=== PATIENT | female | born 1970 | race American Indian/Alaskan Native ===

== ENCOUNTER 2016-08-24 14:05 | Inpatient (IN) | payer OTHER ==
[2016-08-24] MEDS ORDERED: NACL 0.9% 1000 ML 1,000 ML IV ONE ×3 (14:31→17:54)
[2016-08-24] MEDS ORDERED: ZOFRAN IV ONE (14:32)
[2016-08-24 15:37] LABS: Hematocrit 36.6 % (30.3-42.9); Hemoglobin 11.9 gm/dl (10.1-14.3); Mean Corpuscular HGB Conc 33 % (30-34); Mean Corpuscular Hemoglobin 29 pg (28-32); Mean Corpuscular Volume 89 fl (79-97); Red Blood Count 4.11 M/mm3 (3.65-5.03)
--- NOTE | 2016-08-24 15:38 | Emergency Department Report ---
ED N/V/D HPI - General Chief complaint: Hyperglycemia Stated complaint: NAUSEA/VOMITING/DIARRHEA Time Seen by Provider: 08/24/16 14:30 Source: patient, EMS Mode of arrival: Stretcher Limitations: No Limitations - History of Present Illness Initial comments: 46 yo female with a past medical history of insulin dependent diabetes, autoimmune hepatitis, liver cirrhosis, and hypertension presents to the hospital complains of nausea, vomiting, and diarrhea for 2 days. Patient then noncompliant with her insulin for at least 10 days. Accu-Chek high in route to the hospital via EMS. Patient's been unable to tolerate any food intake for the last 3 days. Patient denies hematemesis, hematochezia, melena, fever, dysuria, or pain. Overall fatigue, increased thirst, and increased frequency of urination reported. Patient complains of bilateral leg teofilo at the level of the knees n.. PMD: None - Related Data Previous Rx's Medication Instructions Recorded Last Taken Type Nitrofurantoin [place]/M-Cryst 100 mg PO Q12HR #14 capsule 07/25/16 Unknown Rx [Macrobid CAP] Allergies Allergy/AdvReac Type Severity Reaction Status Date / Time No Known Allergies Allergy Verified 07/25/16 12:59 ED Review of Systems ROS: Stated complaint: NAUSEA/VOMITING/DIARRHEA Other details as noted in HPI Comment: All other systems reviewed and negative Other: Constitutional: No fevers chills Eyes: Chronically impaired vision ENT: No ear pain or throat pain Neck: Denies pain Respiratory: Denies cough wheezing shortness of breath Cardiovascular: Denies chest pain, palpitations, syncope GI: As per HPI : Denies dysuria Musculoskeletal: Denies back pain, joint swelling Skin: Denies rash, lesions, erythema Neurologic: Denies headache, numbness, weakness Psychiatric: Denies suicidal ideation, hallucinations ED Past Medical Hx - Past Medical History Hx Hypertension: Yes Hx Diabetes: Yes Hx Liver Disease: Yes (cirrhosis, autoimmune hepatitis) Additional medical history: Anemia. 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 liver bx - Social History Smoking Status: Never Smoker Substance Use Type: None - Medications Home Medications: Home Medications Medication Instructions Recorded Confirmed Last Taken Type Nitrofurantoin [place]/M-Cryst 100 mg PO Q12HR #14 capsule 07/25/16 Unknown Rx [Macrobid CAP] ED Physical Exam - General Limitations: No Limitations - Other Other exam information: General: No limitations, patient is alert in no acute distress Head exam: Atraumatic, normocephalic Eyes exam: Normal appearance ENT: Dry mucous membranes Neck exam: Normal inspection, full range of motion, no meningismus nontender Respiratory exam: Clear to auscultation bilateral, no wheezes, rales, crackles Cardiovascular: Mild tachycardia regular rhythm, systolic murmur Abdomen: Soft, nondistended, and nontender, with normal bowel sounds, no rebound, or guarding Extremity: Full range of motion normal inspection no deformity Back: Normal Inspection, full range of motion, no tenderness Neurologic: Alert, oriented x3, cranial nerves intact, no motor or sensory deficit Psychiatric: normal affect, normal mood Skin: Warm, dry, intact ED Course Vital Signs 08/24/16 08/24/16 08/24/16 14:31 16:18 18:54 Temperature 97.8 F 99.6 F Pulse Rate 112 H 115 H Respiratory 20 18 20 Rate Blood Pressure 127/51 Blood Pressure 140/87 128/50 [Left] O2 Sat by Pulse 99 96 Oximetry - Reevaluation(s) Reevaluation #1: 08/24/16 15:39 Patient treated with insulin, Zofran, and normal saline ED Medical Decision Making - Lab Data Result diagrams: 08/24/16 14:55 08/24/16 16:38 Lab Results 08/24/16 08/24/16 08/24/16 Range/Units 14:55 14:55 14:55 WBC 20.2 H (4.5-11.0) K/mm3 RBC 4.11 (3.65-5.03) M/mm3 Hgb 11.9 (10.1-14.3) gm/dl Hct 36.6 (30.3-42.9) % MCV 89 (79-97) fl MCH 29 (28-32) pg MCHC 33 (30-34) % RDW 19.0 H (13.2-15.2) % VBG pH (7.320-7.420) Sodium 125 L (137-145) mmol/L Potassium 5.2 H (3.6-5.0) mmol/L Chloride 85.5 L (98-107) mmol/L Carbon Dioxide 14 L (22-30) mmol/L Anion Gap 31 mmol/L BUN 50 H (7-17) mg/dL Creatinine 1.6 H (0.7-1.2) mg/dL Estimated GFR 42 ml/min BUN/Creatinine Ratio 31.25 % Glucose 594 H* (65-100) mg/dL POC Glucose (70-105) Calcium 8.3 L (8.4-10.2) mg/dL Total Bilirubin 2.7 H (0.1-1.2) mg/dL AST 57 H (5-40) units/L ALT 35 (7-56) units/L Alkaline Phosphatase 171 H (35-129) units/L Total Protein 7.4 (6.3-8.2) g/dL Albumin 2.2 L (3.9-5) g/dL Albumin/Globulin Ratio 0.4 % Lipase 148 H (13-60) units/L HCG, Qual Negative (Negative) Ketones 29.2 H (0.2-2.8) mg/dL 08/24/16 08/24/16 08/24/16 Range/Units 14:55 16:38 16:47 WBC (4.5-11.0) K/mm3 RBC (3.65-5.03) M/mm3 Hgb (10.1-14.3) gm/dl Hct (30.3-42.9) % MCV (79-97) fl MCH (28-32) pg MCHC (30-34) % RDW (13.2-15.2) % VBG pH 7.329 (7.320-7.420) Sodium 124 L (137-145) mmol/L Potassium 4.9 (3.6-5.0) mmol/L Chloride 87.9 L (98-107) mmol/L Carbon Dioxide 15 L (22-30) mmol/L Anion Gap 26 mmol/L BUN 49 H (7-17) mg/dL Creatinine 1.4 H (0.7-1.2) mg/dL Estimated GFR 49 ml/min BUN/Creatinine Ratio 35.00 % Glucose 556 H* (65-100) mg/dL POC Glucose > 500 H (70-105) Calcium 8.3 L (8.4-10.2) mg/dL Total Bilirubin (0.1-1.2) mg/dL AST (5-40) units/L ALT (7-56) units/L Alkaline Phosphatase (35-129) units/L Total Protein (6.3-8.2) g/dL Albumin (3.9-5) g/dL Albumin/Globulin Ratio % Lipase (13-60) units/L HCG, Qual (Negative) Ketones (0.2-2.8) mg/dL 08/24/16 Range/Units 18:21 WBC (4.5-11.0) K/mm3 RBC (3.65-5.03) M/mm3 Hgb (10.1-14.3) gm/dl Hct (30.3-42.9) % MCV (79-97) fl MCH (28-32) pg MCHC (30-34) % RDW (13.2-15.2) % VBG pH (7.320-7.420) Sodium (137-145) mmol/L Potassium (3.6-5.0) mmol/L Chloride (98-107) mmol/L Carbon Dioxide (22-30) mmol/L Anion Gap mmol/L BUN (7-17) mg/dL Creatinine (0.7-1.2) mg/dL Estimated GFR ml/min BUN/Creatinine Ratio % Glucose (65-100) mg/dL POC Glucose > 500 H (70-105) Calcium (8.4-10.2) mg/dL Total Bilirubin (0.1-1.2) mg/dL AST (5-40) units/L ALT (7-56) units/L Alkaline Phosphatase (35-129) units/L Total Protein (6.3-8.2) g/dL Albumin (3.9-5) g/dL Albumin/Globulin Ratio % Lipase (13-60) units/L HCG, Qual (Negative) Ketones (0.2-2.8) mg/dL - Radiology Data Radiology results: report reviewed, image reviewed (cxr: naf) CT abdomen and pelvis noncontrast: Findings consistent with cirrhosis portal hypertension. Multiple varices present. Splenomegaly. Diffuse body wall edema. Uterine fibroids. - Medical Decision Making Patient receive IV fluids and treated with DKA protocol. Cultures pending in no acute infection identified at this time. awaiting urine collection - Differential Diagnosis DKA, hyperglycemia, gastroenteritis, gastroparesis Critical Care Time: No Critical care attestation.: If time is entered above; I have spent that time in minutes in the direct care of this critically ill patient, excluding procedure time. ED Disposition Clinical Impression: DKA (diabetic ketoacidoses), Nausea vomiting and diarrhea, Renal insufficiency , Leukocytosis, Hyperkalemia, Liver cirrhosis Disposition: OP ADMITTED IP TO THIS HOSP Is pt being admited?: Yes Condition: Stable Time of Disposition: 19:04 (Dr Patterson/hosp)
[2016-08-24 15:43] LABS: White Blood Count 20.2 K/mm3 (4.5-11.0)
[2016-08-24 15:44] LABS: Albumin 2.2 g/dL (3.9-5); Albumin/Globulin Ratio 0.4 %; B-Hydroxybutyrate 29.2 mg/dL (0.2-2.8); BUN/Creatinine Ratio 31.25; Bilirubin,Total 2.7 mg/dL (0.1-1.2); Calcium 8.3 mg/dL (8.4-10.2); Chloride 85.5 mmol/L (98-107); Potassium 5.2 mmol/L (3.6-5.0); Total Protein 7.4 g/dL (6.3-8.2)
[2016-08-24] MEDS ORDERED: D50W (25GM) IV PRN (15:57)
--- NOTE | 2016-08-24 16:40 | Admit Criteria Form ---
Admission Criteria Documentation: DIABETES Clinical Indications for Admission to Inpatient Care (Place 'X' for any and all applicable criteria): Admission is indicated by presence of ALL (if I & II) or ANY ONE (if III or IV) of the following (1)(2)(3)(4): [X ]I. Diabetes is uncontrolled as indicated by ANY ONE of the following: [ X]a) Diabetic ketoacidosis as indicated by ALL of the following (8): [X ]i) Hyperglycemia (eg, plasma glucose greater than 200 mg /dL (11.1 mmol/L)) [ X]ii) Acidosis (eg, arterial pH less than 7.30, serum bicarbonate level less than 15 mEq/L (mmol/L)) [ X]iii) Moderate ketonuria or ketonemia [ ]b) Hyperglycemic hyperosmolar state as indicated by ALL of the following(9)(10): [ ]i) Neurologic dysfunction (eg, stupor, coma, hemiparesis , seizure)(13) [ ]ii) Plasma glucose greater than 600 mg/dL (33.3 mmol/L) [ ]iii) Serum osmolality greater than 320 mOsm/kg (mmol/kg) [ ]c) Severe signs or symptoms secondary to hyperglycemia indicated by ANY ONE of the following: [ ]i) Altered mental status(10) [ ]ii) Significant hypovolemia or dehydration [ ]iii) Intractable nausea or vomiting [ ]iv) Unexplained fever or severe infection [ ]v) Severe electrolyte abnormality (eg, hypokalemia, hyperkalemia, hypernatremia) [X ]II. Management at other levels of care (Also use Diabetes: Observation Care as appropriate) is not feasible because of ANY ONE of the following: [X ]a) Condition was not adequately corrected with treatment at other levels of care. [ ]b) Treatment at other levels of care is not appropriate because of condition severity (eg, hyperosmolar coma). [ ]III. Contraindications and/or Inappropriate clinical situations for Observational Care in patients with Diabetes, when ANY ONE of the following is required: [ ]a) Patient require specific diagnostic workup or therapeutic intervention 22 [ ]b) Patient with abnormal vital signs or altered mental status 23 [ ]IV. General contraindications and/or Inappropriate clinical situations for Observational Care in patients with Diabetes, when ANY ONE of the following is required: [ ]a) Prediction of prolongation of LOS based on ANY ONE of the following may be considered as a contraindication for observational care 2, 3, 4, 5, 6, 7, 8, 9, 10, 11 [ ]i) Age > 65 yrs. [ ]ii) Patient arriving by ambulance [ ]iii) Patient with high acuity [ ]iv) Patient requiring vital sign monitoring [ ]v) Patient on IV medication [ ]b) Systolic blood pressures 180mmHg 3,12 [ ]c) Patient with altered mental status including delirium and other alteration of consciousness, (3) [ ]d) Patient whose discharge disposition will be to a fpc home or rehabilitation home should not be managed in Emergency Department Observation Unit. CMS rule requires 3 days hospital stay before such placement.3,13 [ ]e) Patient with failure to thrive due to broad array of etiologies 3,16,17 [ ]f) Inability to ambulate 3,14 Extended stay beyond goal length of stay may be needed for(3)(20): [ ]a) Treatment of precipitating causes [ ]b) Development of hypoglycemia [ ]c) Complications of treatment [ ]d) Complications of decompensated diabetes (eg, acute gastric dilatation, persistent metabolic or neurologic derangement) [ ]e) Active Comorbidities [ ]f) Older patients( 65 years or older) The original [employer] content created by [employer] has been revised. The portions of the content which have been revised are identified through the use of italic text or in bold,and [facility] has neither reviewed nor approved the modified material. All other unmodified content is copyright [employer] Please see references footnoted in the original [facility] edition 2016 Admission Criteria Met: Yes
[2016-08-24] MEDS ORDERED: NovoLIN R 100 UNITS in NACL 0.9% 99 ML IV SCH (17:00)
[2016-08-24 17:25] LABS: Calcium 8.3 mg/dL (8.4-10.2); Chloride 87.9 mmol/L (98-107); Potassium 4.9 mmol/L (3.6-5.0)
--- NOTE | 2016-08-24 18:52 | Cat Scan Report ---
FINAL REPORT EXAM: CT ABDOMEN PELVIS WO CON HISTORY: leukocytosis, n,v,d TECHNIQUE: CT of the abdomen and pelvis without contrast PRIORS: None. FINDINGS: There is diffuse body wall edema present. Evaluation is somewhat limited due to lack of intravenous contrast Liver has a nodular contour and appears mildly enlarged. There is recanalization of the umbilical vein with multiple anterior abdominal wall varices The spleen is enlarged measuring approximately 14.0 by 13.2 by 6.5 centimeters. Small amount of ascites noted in the mid abdomen. Kidneys demonstrate no evidence for hydronephrosis. There is suspicion of splint renal varices however evaluation is limited due to lack contrast. No significant colonic or small bowel distention There is a calcified fibroid within posterior lower pelvis. There is also lobular mass identified adjacent to the uterus probable pedunculated fibroid could be further evaluated with ultrasound. Urinary bladder is unremarkable IMPRESSION: Findings are consistent with cirrhosis portal hypertension. Multiple varices present. Splenomegaly Diffuse body wall edema. Probable pedunculated uterine fibroid. Could be further evaluated ultrasound. A calcified pedunculated fibroid is also noted. Somewhat limited exam due to lack intravenous contrast
[2016-08-24 19:17] LABS: Blastocytes % (Manual) 0 %
[2016-08-24 19:18] LABS: Anisocytosis 1+; Basophils % (Manual) 0 % (0.0-1.8); Diff Status Complete; Eosinophils % (Manual) 0 % (0.0-4.3); Platelet Estimate Appears Decreased; Poikilocytosis 1+
[2016-08-24 19:20] LABS: Platelet Count 93 K/mm3 (140-440)
[2016-08-24 19:21] LABS: BUN/Creatinine Ratio 35.71; Chloride 91.1 mmol/L (98-107); Potassium 4.6 mmol/L (3.6-5.0)
[2016-08-24 20:39] LABS: BUN/Creatinine Ratio 33.33; Calcium 7.6 mg/dL (8.4-10.2); Chloride 93.5 mmol/L (98-107); Potassium 4.3 mmol/L (3.6-5.0)
[2016-08-25] MEDS ORDERED: NACL 0.9% 1000 ML 1,000 ML ONE (00:08)
[2016-08-25 00:14] LABS: BUN/Creatinine Ratio 33.33; Calcium 8.2 mg/dL (8.4-10.2); Chloride 94.2 mmol/L (98-107); Potassium 4.6 mmol/L (3.6-5.0)
--- NOTE | 2016-08-25 00:20 | Event Note ---
Date: 08/24/16 See H/p in reports DKA
[2016-08-25] MEDS ORDERED: D50W (25GM) IV PRN (00:21)
[2016-08-25] MEDS ORDERED: D5W/0.45% NACL/KCL 20 MEQ 1,000 ML IV SCH (01:00)
[2016-08-25] MEDS ORDERED: NovoLIN R 100 UNITS in NACL 0.9% 99 ML IV SCH (01:00)
[2016-08-25 01:19] LABS: BUN/Creatinine Ratio 31.25; Calcium 8.4 mg/dL (8.4-10.2); Magnesium 2.2 mg/dL (1.7-2.3); Phosphorous 1.6 mg/dL (2.5-4.5)
[2016-08-25 01:20] LABS: Chloride 92.6 mmol/L (98-107); Potassium 4.7 mmol/L (3.6-5.0)
--- NOTE | 2016-08-25 01:59 | History and Physical Report ---
CHIEF COMPLAINT: Nausea, vomiting, and diarrhea for two days. HISTORY OF PRESENT ILLNESS: A 46-year-old female with a past medical history of autoimmune hepatitis, insulin-dependent diabetes, liver cirrhosis and hypertension, presents with nausea, vomiting, and diarrhea for two days. Noncompliant with her insulin for the last 10 days. No dysuria, no flank pain. Unable to tolerate any food intake for the past 3 days. PAST MEDICAL HISTORY: Significant for, 1. Hypertension. 2. Diabetes. 3. Cirrhosis. 4. Autoimmune hepatitis. 5. Anemia. 6. Blind in the left eye. The patient impaired in the right eye. PAST SURGICAL HISTORY: Benign tumors removed from bilateral breasts. Liver biopsy. SOCIAL HISTORY: Does not smoke. No alcohol, no recreational drugs. FAMILY HISTORY: Significant for hypertension. REVIEW OF SYSTEMS: CONSTITUTIONAL: No weight gain, no weight loss. Fatigue and weakness present. Poor appetite present. HEENT: No blurred vision, no sore throat, no postnasal drip. CARDIOVASCULAR: No chest pain, no palpitations, no shortness of breath, no paroxysmal nocturnal dyspnea. RESPIRATORY: No wheezing. No shortness of breath or cough. GASTROINTESTINAL: No abdominal pain, but nausea, vomiting, diarrhea present. Vomiting about 3-4 times a day, loose stools 2 to 3 times a day. Not foul smelling. GENITOURINARY: No dysuria, no flank pain. MUSCULOSKELETAL: No neck stiffness, muscle weakness, or muscle cramps. INTEGUMENTARY: No rash, no pruritus, no jaundice. CENTRAL NERVOUS SYSTEM: No syncope, no seizures, no focal deficits. PSYCHIATRIC: Slightly depressed. ENDOCRINE: Polyphagia present. Unable to eat for the last few days because of the nausea. HEMATOLOGIC AND LYMPHATIC: No easy bruising or easy bleeding. ALLERGIC AND IMMUNOLOGIC: No urticaria. A 14-point review of systems was done. PHYSICAL EXAMINATION: GENERAL: Middle-aged female, cooperative during examination. VITAL SIGNS: Temperature is 97.8, pulse is 112, respirations are 20, blood pressure 127/51. HEENT: Unremarkable. Pupils equal and reactive. NECK: Supple, no lymphadenopathy, no thyromegaly. LUNGS: Clear to auscultation and percussion. Good air entry. CARDIOVASCULAR: S1, S2 heard. No gallop, no murmur, no rub. Apical impulse in left fifth intercostal space and midclavicular line. ABDOMEN: Soft and benign. No hepatosplenomegaly. No guarding, no rigidity. Hernial orifices are normal. EXTREMITIES: Good pedal pulses. No pedal edema. CENTRAL NERVOUS SYSTEM: Alert and oriented x 4, nonfocal exam. LABORATORY DATA: White count is 20,200, hemoglobin is 11.9, hematocrit is 36.6, platelet count of 93,000. Glucose is 594, potassium is 5.2. Sodium is 125 and BUN and creatinine is 15 and 1.6, albumin is 2.2, ketones is 29.2. EKG shows sinus tachycardia. A CT abdomen shows findings consistent with cirrhosis and portal hypertension, multiple viruses present. ASSESSMENT AND PLAN: 1. Diabetic ketoacidosis. IV fluids for the time being and diabetic ketoacidosis protocol. Also, long acting insulin initiated at night time. Patient can be discharged on long-acting insulin qhs and short-acting insulin before each meal. 2. Hypertension. Blood pressure under control. We will add antihypertensives if necessary. 3. Hyponatremia secondary to high glucose level. Should be corrected with correction of glucose. 4. Hyperkalemia -mild , should correct with IV insulin. 5. Leukocytosis. Rocephin empirically. No source of infection found. Check UA. Check urine for infection. We will go with Rocephin for the time being. 6. Autoimmune hepatitis, stable. LFTs are slightly high. AST is 57. Total bilirubin is 2.7. We will consult GI if necessary. At this point, I think it is at baseline and we will not do anything for about it. 7. Deep venous thrombosis prophylaxis, Lovenox 30 mg subcutaneous daily. 8. Prerenal azotemia. IV fluids for the time being. JOB# [id number] YEHUDA/LUDMILA SLIVERIO
[2016-08-25 02:37] LABS: Bacteria,Urine 4+ /HPF (Negative); Bilirubin,Urine NEG (Negative); Blood,Urine SM (Negative); Ketones,Urine NEG (Negative); Leukocyte Esterase,Urine SM (Negative); Mucus,Urine FEW /HPF; Nitrite,Urine NEG (Negative); RBC,Urine < 1.0 /HPF (0.0-6.0); Urobilinogen,Urine < 2.0 mg/dL (<2.0)
[2016-08-25 06:42] LABS: BUN/Creatinine Ratio 32.14; Calcium 7.8 mg/dL (8.4-10.2); Chloride 99.2 mmol/L (98-107); Potassium 3.9 mmol/L (3.6-5.0)
--- NOTE | 2016-08-25 07:58 | XRay Report ---
PORTABLE CHEST: An AP portable view of the chest demonstrates a normal cardiac contour considering the limits of this technique. The lungs are clear with no evidence of infiltrate, fluid or failure. IMPRESSION: Normal portable chest.
[2016-08-25 08:10] LABS: BUN/Creatinine Ratio 30.66; Calcium 7.7 mg/dL (8.4-10.2); Chloride 100.6 mmol/L (98-107)
[2016-08-25] MEDS ORDERED: TYLENOL PO PRN (09:23)
[2016-08-25] MEDS: ROCEPHIN/NS 2 GM/100 ML 100 ML IV SCH (10:25)
[2016-08-25] MEDS: LOVENOX SUB-Q SCH (10:48)
[2016-08-25 10:51] LABS: BUN/Creatinine Ratio 32.14; Calcium 7.7 mg/dL (8.4-10.2); Chloride 101.4 mmol/L (98-107)
--- NOTE | 2016-08-25 12:38 | Consultation ---
History of Present Illness Consult date: 08/25/16 Requesting physician: LEANNA REEVES Reason for consult: other (DKA) History of present illness: PULMONARY CONSULT NOTE (Full dictation # [id number]) Please see dictated notes for full details Medications and Allergies Allergies Allergy/AdvReac Type Severity Reaction Status Date / Time No Known Allergies Allergy Verified 07/25/16 12:59 Home Medications Medication Instructions Recorded Confirmed Last Taken Type Nitrofurantoin [place]/M-Cryst 100 mg PO Q12HR #14 capsule 07/25/16 Unknown Rx [Macrobid CAP] Active Meds: Active Medications Acetaminophen (Tylenol) 650 mg PO Q4H PRN PRN Reason: Pain, Mild (1-3) Last Admin: 08/25/16 10:29 Dose: 650 mg Dextrose (D50w (25gm)) 0 ml IV PRN PRN PRN Reason: Hypoglycemia Enoxaparin Sodium (Lovenox) 40 mg SUB-Q QDAY DEONNA Last Admin: 08/25/16 10:48 Dose: 40 mg Insulin Human Regular 100 (units/ Sodium Chloride) 100 mls @ 1 mls/hr IV TITR DEONNA; 1 UNITS/HR PRN Reason: Protocol Last Titration: 08/25/16 11:39 Dose: 5 units/hr Potassium Chloride/Dextrose/Sod Cl (D5w/0.45% Nacl/Kcl 20 Meq) 1,000 mls @ 125 mls/hr IV DIRECT DEONNA Last Admin: 08/25/16 06:05 Dose: 125 mls/hr Ceftriaxone Sodium (Rocephin/Ns 2 Gm/100 Ml) 100 mls @ 200 mls/hr IV Q24HR DEONNA Last Admin: 08/25/16 10:25 Dose: 200 mls/hr Insulin Detemir (Levemir) 10 units SUB-Q QHS DEONNA Physical Examination Vital signs: Vital Signs Temp Pulse Resp BP Pulse Ox 97.8 F 112 H 20 127/51 99 08/24/16 14:31 08/24/16 14:31 08/24/16 14:31 08/24/16 14:31 08/24/16 14:31 Results - Laboratory Findings CBC and BMP: 08/26/16 09:48 08/26/16 09:48 Abnormal lab findings: Abnormal Labs 08/24/16 08/24/16 08/24/16 20:00 23:24 23:38 Sodium 126 L 128 L Chloride 93.5 L 94.2 L Carbon Dioxide 18 L 18 L BUN 50 H 50 H Creatinine 1.5 H 1.5 H Glucose 464 H 361 H POC Glucose 337 H Hemoglobin A1c Calcium 7.6 L 8.2 L Phosphorus Urine WBC (Auto) 08/25/16 08/25/16 08/25/16 00:36 00:36 00:36 Sodium 127 L Chloride 92.6 L Carbon Dioxide 20 L BUN 50 H Creatinine 1.6 H Glucose 338 H POC Glucose Hemoglobin A1c 13.3 H Calcium Phosphorus 1.6 L Urine WBC (Auto) 08/25/16 08/25/16 08/25/16 00:54 01:50 02:17 Sodium Chloride Carbon Dioxide BUN Creatinine Glucose POC Glucose 313 H 275 H Hemoglobin A1c Calcium Phosphorus Urine WBC (Auto) 23.0 H 08/25/16 08/25/16 08/25/16 03:00 03:49 04:49 Sodium Chloride Carbon Dioxide BUN Creatinine Glucose POC Glucose 271 H 267 H 259 H Hemoglobin A1c Calcium Phosphorus Urine WBC (Auto) 08/25/16 08/25/16 08/25/16 05:47 06:10 06:59 Sodium 131 L Chloride Carbon Dioxide 19 L BUN 45 H Creatinine 1.4 H Glucose 227 H POC Glucose 229 H 249 H Hemoglobin A1c Calcium 7.8 L Phosphorus Urine WBC (Auto) 08/25/16 08/25/16 08/25/16 07:34 08:10 09:06 Sodium 133 L Chloride Carbon Dioxide 19 L BUN 46 H Creatinine 1.5 H Glucose 249 H POC Glucose 241 H 275 H Hemoglobin A1c Calcium 7.7 L Phosphorus Urine WBC (Auto) 08/25/16 08/25/16 10:23 10:30 Sodium 134 L Chloride Carbon Dioxide 21 L BUN 45 H Creatinine 1.4 H Glucose 252 H POC Glucose 238 H Hemoglobin A1c Calcium 7.7 L Phosphorus Urine WBC (Auto)
--- NOTE | 2016-08-25 13:38 | Progress Note ---
Assessment and Plan Assessment and plan: --Diabetic ketoacidosis On insulin drip and IV fluids, blood sugars reasonable control And then Closed, acidosis improved Start diabetic diet, initiate long-acting insulin 7030 DC insulin drip, Accu-Chek sliding scale coverage and ADA diet Check hemoglobin A1c, IV hydration change fluids to normal saline And supportive care --Febrile illness/leukocytosis Rule out sepsis, blood and urine cultures emperic antibiotics --Type 1 diabetes mellitus Uncontrolled secondary to noncompliance Diabetic education possible home health nurse for disease monitoring and education Prior to discharge --Pseudohyponatremia secondary to severe hypoglycemia Sodium levels slowly improving Closely monitor --Acute renal failure secondary to vasomotor nephropathy And dehydration, trending down IV fluids, oral fluids, closely monitor renal function and avoid nephrotoxic medications Constant nephrology evaluation if no improvement --Transaminitis/cirrhosis liver Closely monitor, may need to follow GI as outpatient For further evaluation and management --DVT prophylaxis with Lovenox DC planning with case management If patient tolerates diet and sugars are reasonable control Patient can be admitted to telemetry plan of care discussed with the patient her nurse Critical care time 31 minutes The high probability of a clinically significant, sudden or life threatening deterioration of the [endocrine, nephrology, gastrointestinal and infectious disease] system(s) required my full and direct attention, intervention and personal management. The aggregate critical care time was [31] minutes. This time is in addition to time spent performing reported procedures but includes the following: [x] Data Review and interpretation [x] Patient assessment and monitoring of vital signs [x] Documentation [x] Medication orders and management History Interval history: Patient seen and evaluated in ER from this morning medical records reviewed Admitted with diabetic ketoacidosis on insulin drip, patient blood sugars are reasonable Amnion gap closed, no acidosis Patient is alert awake oriented 3, dehydrated complaints of generalized weakness No nausea vomiting Vital signs reviewed stable Hospitalist Physical - Constitutional Vitals: Temp Pulse Resp BP Pulse Ox 101.3 F H 93 H 18 106/56 99 08/25/16 09:22 08/25/16 13:00 08/25/16 13:10 08/25/16 13:00 08/25/16 13:10 General appearance: Present: mild distress, well-nourished, obese, other ( dehydrated) - EENT Eyes: Present: PERRL, EOM intact - Neck Neck: Present: supple, normal ROM - Respiratory Respiratory effort: normal Respiratory: bilateral: diminished, negative: rales, rhonchi, wheezing - Cardiovascular Rhythm: regular Heart Sounds: Present: S1 & S2 - Extremities Extremities: no ischemia, pulses intact, pulses symmetrical Peripheral Pulses: within normal limits - Abdominal General gastrointestinal: soft, non-tender, non-distended, normal bowel sounds - Integumentary Integumentary: Present: clear, warm - Psychiatric Psychiatric: appropriate mood/affect, cooperative - Neurologic Neurologic: CNII-XII intact, moves all extremities Results - Labs CBC & Chem 7: 08/26/16 09:48 08/26/16 09:48 Labs: Laboratory Last Values WBC 20.2 K/mm3 (4.5-11.0) H 08/24/16 14:55 RBC 4.11 M/mm3 (3.65-5.03) 08/24/16 14:55 Hgb 11.9 gm/dl (10.1-14.3) 08/24/16 14:55 Hct 36.6 % (30.3-42.9) 08/24/16 14:55 MCV 89 fl (79-97) 08/24/16 14:55 MCH 29 pg (28-32) 08/24/16 14:55 MCHC 33 % (30-34) 08/24/16 14:55 RDW 19.0 % (13.2-15.2) H 08/24/16 14:55 Plt Count 93 K/mm3 (140-440) L 08/24/16 14:55 Add Manual Diff Complete 08/24/16 14:55 Total Counted 100 08/24/16 14:55 Seg Neuts % (Manual) 88.0 % (40.0-70.0) H 08/24/16 14:55 Band Neutrophils % 4.0 % 08/24/16 14:55 Lymphocytes % (Manual) 3.0 % (13.4-35.0) L 08/24/16 14:55 Reactive Lymphs % (Man) 0 % 08/24/16 14:55 Monocytes % (Manual) 3.0 % (0.0-7.3) 08/24/16 14:55 Eosinophils % (Manual) 0 % (0.0-4.3) 08/24/16 14:55 Basophils % (Manual) 0 % (0.0-1.8) 08/24/16 14:55 Metamyelocytes % 1.0 % 08/24/16 14:55 Myelocytes % 1.0 % 08/24/16 14:55 Promyelocytes % 0 % 08/24/16 14:55 Blast Cells % 0 % 08/24/16 14:55 Nucleated RBC % Not Reportable 08/24/16 14:55 Seg Neutrophils # Man 17.8 K/mm3 (1.8-7.7) H 08/24/16 14:55 Band Neutrophils # 0.8 K/mm3 08/24/16 14:55 Lymphocytes # (Manual) 0.6 K/mm3 (1.2-5.4) L 08/24/16 14:55 Abs React Lymphs (Man) 0.0 K/mm3 08/24/16 14:55 Monocytes # (Manual) 0.6 K/mm3 (0.0-0.8) 08/24/16 14:55 Eosinophils # (Manual) 0.0 K/mm3 (0.0-0.4) 08/24/16 14:55 Basophils # (Manual) 0.0 K/mm3 (0.0-0.1) 08/24/16 14:55 Metamyelocytes # 0.2 K/mm3 08/24/16 14:55 Myelocytes # 0.2 K/mm3 08/24/16 14:55 Promyelocytes # 0.0 K/mm3 08/24/16 14:55 Blast Cells # 0.0 K/mm3 08/24/16 14:55 WBC Morphology Not Reportable 08/24/16 14:55 Hypersegmented Neuts Not Reportable 08/24/16 14:55 Hyposegmented Neuts Not Reportable 08/24/16 14:55 Hypogranular Neuts Not Reportable 08/24/16 14:55 Smudge Cells Not Reportable 08/24/16 14:55 Toxic Granulation Not Reportable 08/24/16 14:55 Toxic Vacuolation Not Reportable 08/24/16 14:55 Dohle Bodies Not Reportable 08/24/16 14:55 Pelger-Huet Anomaly Not Reportable 08/24/16 14:55 Chary Rods Not Reportable 08/24/16 14:55 Platelet Estimate Appears decreased 08/24/16 14:55 Clumped Platelets Not Reportable 08/24/16 14:55 Plt Clumps, EDTA Not Reportable 08/24/16 14:55 Large Platelets Not Reportable 08/24/16 14:55 Giant Platelets Not Reportable 08/24/16 14:55 Platelet Satelliting Not Reportable 08/24/16 14:55 Plt Morphology Comment Not Reportable 08/24/16 14:55 RBC Morphology Not Reportable 08/24/16 14:55 Dimorphic RBCs Not Reportable 08/24/16 14:55 Polychromasia Not Reportable 08/24/16 14:55 Hypochromasia Not Reportable 08/24/16 14:55 Poikilocytosis 1+ 08/24/16 14:55 Anisocytosis 1+ 08/24/16 14:55 Microcytosis Not Reportable 08/24/16 14:55 Macrocytosis Not Reportable 08/24/16 14:55 Spherocytes Not Reportable 08/24/16 14:55 Pappenheimer Bodies Not Reportable 08/24/16 14:55 Sickle Cells Not Reportable 08/24/16 14:55 Target Cells Not Reportable 08/24/16 14:55 Tear Drop Cells Not Reportable 08/24/16 14:55 Ovalocytes Not Reportable 08/24/16 14:55 Helmet Cells Not Reportable 08/24/16 14:55 [place] Bodies Not Reportable 08/24/16 14:55 [place] Rings Not Reportable 08/24/16 14:55 Marilyn Cells Not Reportable 08/24/16 14:55 Bite Cells Not Reportable 08/24/16 14:55 Crenated Cell Not Reportable 08/24/16 14:55 Elliptocytes Not Reportable 08/24/16 14:55 Acanthocytes (Spur) Not Reportable 08/24/16 14:55 Rouleaux Not Reportable 08/24/16 14:55 Hemoglobin C Crystals Not Reportable 08/24/16 14:55 Schistocytes Not Reportable 08/24/16 14:55 Malaria parasites Not Reportable 08/24/16 14:55 [place] Bodies Not Reportable 08/24/16 14:55 Hem Pathologist Commnt No 08/24/16 14:55 VBG pH 7.329 (7.320-7.420) 08/24/16 14:55 Sodium 134 mmol/L (137-145) L 08/25/16 10:30 Potassium 4.0 mmol/L (3.6-5.0) 08/25/16 10:30 Chloride 101.4 mmol/L (98-107) 08/25/16 10:30 Carbon Dioxide 21 mmol/L (22-30) L 08/25/16 10:30 Anion Gap 16 mmol/L 08/25/16 10:30 BUN 45 mg/dL (7-17) H 08/25/16 10:30 Creatinine 1.4 mg/dL (0.7-1.2) H 08/25/16 10:30 Estimated GFR 49 ml/min 08/25/16 10:30 BUN/Creatinine Ratio 32.14 % 08/25/16 10:30 Glucose 252 mg/dL (65-100) H 08/25/16 10:30 POC Glucose 238 (70-105) H 08/25/16 10:23 Hemoglobin A1c 13.3 % (4-6) H 08/25/16 00:36 Calcium 7.7 mg/dL (8.4-10.2) L 08/25/16 10:30 Phosphorus 1.6 mg/dL (2.5-4.5) L 08/25/16 00:36 Magnesium 2.2 mg/dL (1.7-2.3) 08/25/16 00:36 Total Bilirubin 2.7 mg/dL (0.1-1.2) H 08/24/16 14:55 AST 57 units/L (5-40) H 08/24/16 14:55 ALT 35 units/L (7-56) 08/24/16 14:55 Alkaline Phosphatase 171 units/L (35-129) H 08/24/16 14:55 Total Protein 7.4 g/dL (6.3-8.2) 08/24/16 14:55 Albumin 2.2 g/dL (3.9-5) L 08/24/16 14:55 Albumin/Globulin Ratio 0.4 % 08/24/16 14:55 Lipase 148 units/L (13-60) H 08/24/16 14:55 HCG, Qual Negative (Negative) 08/24/16 14:55 Urine Color Yellow (Yellow) 08/25/16 02:17 Urine Turbidity Slightly-cloudy (Clear) 08/25/16 02:17 Urine pH 5.0 (5.0-7.0) 08/25/16 02:17 Ur Specific [place] 1.013 (1.003-1.030) 08/25/16 02:17 Urine Protein 30 mg/dl mg/dL (Negative) 08/25/16 02:17 Urine Glucose (UA) >=500 mg/dL (Negative) 08/25/16 02:17 Urine Ketones Neg mg/dL (Negative) 08/25/16 02:17 Urine Blood Sm (Negative) 08/25/16 02:17 Urine Nitrite Neg (Negative) 08/25/16 02:17 Urine Bilirubin Neg (Negative) 08/25/16 02:17 Urine Urobilinogen < 2.0 mg/dL (<2.0) 08/25/16 02:17 Ur Leukocyte Esterase Sm (Negative) 08/25/16 02:17 Urine WBC (Auto) 23.0 /HPF (0.0-6.0) H 08/25/16 02:17 Urine RBC (Auto) < 1.0 /HPF (0.0-6.0) 08/25/16 02:17 U Epithel Cells (Auto) < 1.0 /HPF (0-13.0) 08/25/16 02:17 Urine Bacteria (Auto) 4+ /HPF (Negative) 08/25/16 02:17 Urine Mucus Few /HPF 08/25/16 02:17 Ketones 29.2 mg/dL (0.2-2.8) H 08/24/16 14:55
[2016-08-25 18:17] LABS: BUN/Creatinine Ratio 37.5; Calcium 7.9 mg/dL (8.4-10.2); Chloride 95.8 mmol/L (98-107)
[2016-08-25 18:25] LABS: Potassium 5.2 mmol/L (3.6-5.0)
[2016-08-25] MEDS ORDERED: LEVEMIR SUB-Q SCH (22:00)
[2016-08-26] MEDS: NOVOLOG SUB-Q SCH ×5 (00:35→22:36)
[2016-08-26] MEDS: NACL 0.9% 1000 ML 1,000 ML IV SCH (00:36)
--- NOTE | 2016-08-26 07:55 | Progress Note ---
Hospitalist Physical - Constitutional Vitals: Temp Pulse Resp BP Pulse Ox 98.3 F 112 H 16 114/73 99 08/25/16 23:10 08/25/16 23:10 08/25/16 23:10 08/25/16 23:10 08/25/16 21:00 General appearance: Present: mild distress, well-nourished, obese, other ( dehydrated) Results - Labs CBC & Chem 7: 08/24/16 14:55 08/25/16 17:27 Labs: Laboratory Last Values WBC 20.2 K/mm3 (4.5-11.0) H 08/24/16 14:55 RBC 4.11 M/mm3 (3.65-5.03) 08/24/16 14:55 Hgb 11.9 gm/dl (10.1-14.3) 08/24/16 14:55 Hct 36.6 % (30.3-42.9) 08/24/16 14:55 MCV 89 fl (79-97) 08/24/16 14:55 MCH 29 pg (28-32) 08/24/16 14:55 MCHC 33 % (30-34) 08/24/16 14:55 RDW 19.0 % (13.2-15.2) H 08/24/16 14:55 Plt Count 93 K/mm3 (140-440) L 08/24/16 14:55 Add Manual Diff Complete 08/24/16 14:55 Total Counted 100 08/24/16 14:55 Seg Neuts % (Manual) 88.0 % (40.0-70.0) H 08/24/16 14:55 Band Neutrophils % 4.0 % 08/24/16 14:55 Lymphocytes % (Manual) 3.0 % (13.4-35.0) L 08/24/16 14:55 Reactive Lymphs % (Man) 0 % 08/24/16 14:55 Monocytes % (Manual) 3.0 % (0.0-7.3) 08/24/16 14:55 Eosinophils % (Manual) 0 % (0.0-4.3) 08/24/16 14:55 Basophils % (Manual) 0 % (0.0-1.8) 08/24/16 14:55 Metamyelocytes % 1.0 % 08/24/16 14:55 Myelocytes % 1.0 % 08/24/16 14:55 Promyelocytes % 0 % 08/24/16 14:55 Blast Cells % 0 % 08/24/16 14:55 Nucleated RBC % Not Reportable 08/24/16 14:55 Seg Neutrophils # Man 17.8 K/mm3 (1.8-7.7) H 08/24/16 14:55 Band Neutrophils # 0.8 K/mm3 08/24/16 14:55 Lymphocytes # (Manual) 0.6 K/mm3 (1.2-5.4) L 08/24/16 14:55 Abs React Lymphs (Man) 0.0 K/mm3 08/24/16 14:55 Monocytes # (Manual) 0.6 K/mm3 (0.0-0.8) 08/24/16 14:55 Eosinophils # (Manual) 0.0 K/mm3 (0.0-0.4) 08/24/16 14:55 Basophils # (Manual) 0.0 K/mm3 (0.0-0.1) 08/24/16 14:55 Metamyelocytes # 0.2 K/mm3 08/24/16 14:55 Myelocytes # 0.2 K/mm3 08/24/16 14:55 Promyelocytes # 0.0 K/mm3 08/24/16 14:55 Blast Cells # 0.0 K/mm3 08/24/16 14:55 WBC Morphology Not Reportable 08/24/16 14:55 Hypersegmented Neuts Not Reportable 08/24/16 14:55 Hyposegmented Neuts Not Reportable 08/24/16 14:55 Hypogranular Neuts Not Reportable 08/24/16 14:55 Smudge Cells Not Reportable 08/24/16 14:55 Toxic Granulation Not Reportable 08/24/16 14:55 Toxic Vacuolation Not Reportable 08/24/16 14:55 Dohle Bodies Not Reportable 08/24/16 14:55 Pelger-Huet Anomaly Not Reportable 08/24/16 14:55 Chary Rods Not Reportable 08/24/16 14:55 Platelet Estimate Appears decreased 08/24/16 14:55 Clumped Platelets Not Reportable 08/24/16 14:55 Plt Clumps, EDTA Not Reportable 08/24/16 14:55 Large Platelets Not Reportable 08/24/16 14:55 Giant Platelets Not Reportable 08/24/16 14:55 Platelet Satelliting Not Reportable 08/24/16 14:55 Plt Morphology Comment Not Reportable 08/24/16 14:55 RBC Morphology Not Reportable 08/24/16 14:55 Dimorphic RBCs Not Reportable 08/24/16 14:55 Polychromasia Not Reportable 08/24/16 14:55 Hypochromasia Not Reportable 08/24/16 14:55 Poikilocytosis 1+ 08/24/16 14:55 Anisocytosis 1+ 08/24/16 14:55 Microcytosis Not Reportable 08/24/16 14:55 Macrocytosis Not Reportable 08/24/16 14:55 Spherocytes Not Reportable 08/24/16 14:55 Pappenheimer Bodies Not Reportable 08/24/16 14:55 Sickle Cells Not Reportable 08/24/16 14:55 Target Cells Not Reportable 08/24/16 14:55 Tear Drop Cells Not Reportable 08/24/16 14:55 Ovalocytes Not Reportable 08/24/16 14:55 Helmet Cells Not Reportable 08/24/16 14:55 Paul-[place] Bodies Not Reportable 08/24/16 14:55 Emma Rings Not Reportable 08/24/16 14:55 [place] Cells Not Reportable 08/24/16 14:55 Bite Cells Not Reportable 08/24/16 14:55 Crenated Cell Not Reportable 08/24/16 14:55 Elliptocytes Not Reportable 08/24/16 14:55 Acanthocytes (Spur) Not Reportable 08/24/16 14:55 Rouleaux Not Reportable 08/24/16 14:55 Hemoglobin C Crystals Not Reportable 08/24/16 14:55 Schistocytes Not Reportable 08/24/16 14:55 Malaria parasites Not Reportable 08/24/16 14:55 Zurdo Bodies Not Reportable 08/24/16 14:55 Hem Pathologist Commnt No 08/24/16 14:55 VBG pH 7.329 (7.320-7.420) 08/24/16 14:55 Sodium 128 mmol/L (137-145) L 08/25/16 17:27 Potassium 5.2 mmol/L (3.6-5.0) H D 08/25/16 17:27 Chloride 95.8 mmol/L (98-107) L 08/25/16 17:27 Carbon Dioxide 18 mmol/L (22-30) L 08/25/16 17:27 Anion Gap 19 mmol/L 08/25/16 17:27 BUN 45 mg/dL (7-17) H 08/25/16 17:27 Creatinine 1.2 mg/dL (0.7-1.2) 08/25/16 17:27 Estimated GFR 59 ml/min 08/25/16 17: BUN/Creatinine Ratio 37.50 % 08/25/16 17:27 Glucose 250 mg/dL (65-100) H 08/25/16 17:27 POC Glucose 260 (70-105) H 08/26/16 06:09 Hemoglobin A1c 13.3 % (4-6) H 08/25/16 00:36 Calcium 7.9 mg/dL (8.4-10.2) L 08/25/16 17:27 Phosphorus 1.6 mg/dL (2.5-4.5) L 08/25/16 00:36 Magnesium 2.2 mg/dL (1.7-2.3) 08/25/16 00:36 Total Bilirubin 2.7 mg/dL (0.1-1.2) H 08/24/16 14:55 AST 57 units/L (5-40) H 08/24/16 14:55 ALT 35 units/L (7-56) 08/24/16 14:55 Alkaline Phosphatase 171 units/L (35-129) H 08/24/16 14:55 Total Protein 7.4 g/dL (6.3-8.2) 08/24/16 14:55 Albumin 2.2 g/dL (3.9-5) L 08/24/16 14:55 Albumin/Globulin Ratio 0.4 % 08/24/16 14:55 Lipase 148 units/L (13-60) H 08/24/16 14:55 HCG, Qual Negative (Negative) 08/24/16 14:55 Urine Color Yellow (Yellow) 08/25/16 02:17 Urine Turbidity Slightly-cloudy (Clear) 08/25/16 02:17 Urine pH 5.0 (5.0-7.0) 08/25/16 02:17 Ur Specific [place] 1.013 (1.003-1.030) 08/25/16 02:17 Urine Protein 30 mg/dl mg/dL (Negative) 08/25/16 02:17 Urine Glucose (UA) >=500 mg/dL (Negative) 08/25/16 02:17 Urine Ketones Neg mg/dL (Negative) 08/25/16 02:17 Urine Blood Sm (Negative) 08/25/16 02:17 Urine Nitrite Neg (Negative) 08/25/16 02:17 Urine Bilirubin Neg (Negative) 08/25/16 02:17 Urine Urobilinogen < 2.0 mg/dL (<2.0) 08/25/16 02:17 Ur Leukocyte Esterase Sm (Negative) 08/25/16 02:17 Urine WBC (Auto) 23.0 /HPF (0.0-6.0) H 08/25/16 02:17 Urine RBC (Auto) < 1.0 /HPF (0.0-6.0) 08/25/16 02:17 U Epithel Cells (Auto) < 1.0 /HPF (0-13.0) 08/25/16 02:17 Urine Bacteria (Auto) 4+ /HPF (Negative) 08/25/16 02:17 Urine Mucus Few /HPF 08/25/16 02:17 Ketones 29.2 mg/dL (0.2-2.8) H 08/24/16 14:55
[2016-08-26] MEDS: LOVENOX SUB-Q SCH (10:04)
[2016-08-26] MEDS: ROCEPHIN/NS 2 GM/100 ML 100 ML IV SCH (10:05)
[2016-08-26 10:20] LABS: Hematocrit 37.5 % (30.3-42.9); Hemoglobin 12.3 gm/dl (10.1-14.3); Mean Corpuscular HGB Conc 33 % (30-34); Mean Corpuscular Hemoglobin 29 pg (28-32); Mean Corpuscular Volume 88 fl (79-97); Platelet Count 112 K/mm3 (140-440); Red Blood Count 4.24 M/mm3 (3.65-5.03); Red Cell Distribution Width 19.8 % (13.2-15.2)
[2016-08-26 10:25] LABS: White Blood Count 25.9 K/mm3 (4.5-11.0)
[2016-08-26 10:34] LABS: Calcium 8.1 mg/dL (8.4-10.2); Magnesium 2.2 mg/dL (1.7-2.3); Phosphorous 1.8 mg/dL (2.5-4.5); Potassium 4.7 mmol/L (3.6-5.0)
--- NOTE | 2016-08-26 10:43 | Discharge Summary ---
Providers - Providers Date of Admission: 08/24/16 19:05 Date of discharge: 08/26/16 Attending physician: ROMAN GANDHI 08/24/16 19:47 Consult to Physician [CONS] Routine Consulting Provider: PHONG AKERS Reason For Exam: ICU Admission Place consult to:: Privacy Director Notified:: no 08/25/16 00:33 Consult to Dietitian/Nutrition [CONS] Routine Physician Instructions: Reason For Exam: Reason for Consult: Nutrition Recommendations Reason for Consult: Diet education Primary care physician: ORTHOPEDIC SURGEON Hospitalization Condition: Stable Disposition: DC/[place] HOME UNDER HOME HEALTH Core Measure Documentation - Palliative Care Palliative Care/ Comfort Measures: Not Applicable - Core Measures Any of the following diagnoses?: none Exam - Constitutional Vitals: Temp Pulse Resp BP Pulse Ox 99.1 F 104 H 18 121/61 97 08/26/16 08:00 08/26/16 08:00 08/26/16 08:00 08/26/16 08:00 08/26/16 08:00 General appearance: Present: no acute distress, well-nourished - EENT Eyes: Present: PERRL, EOM intact - Neck Neck: Present: supple, normal ROM - Respiratory Respiratory effort: normal Respiratory: negative: rales, rhonchi, wheezing - Cardiovascular Rhythm: regular Heart Sounds: Present: S1 & S2 - Extremities Extremities: no ischemia, pulses intact, pulses symmetrical Peripheral Pulses: within normal limits - Abdominal General gastrointestinal: Present: soft, non-tender, non-distended, normal bowel sounds - Musculoskeletal Musculoskeletal: strength equal bilaterally, generalized weakness - Psychiatric Psychiatric: appropriate mood/affect, cooperative - Neurologic Neurologic: moves all extremities Plan Activity: advance as tolerated, fall precautions Diet: diabetic Additional Instructions: Patient was given [place]/Cipro by urologist. Advised to leave [place] catheter upon discharge. Follow with urology in 1 week Follow up with: ADY PARKER MD [Primary Care Provider] - 3-5 Days ANA M BARRERA MD [Staff Physician] - 7 Days
--- NOTE | 2016-08-26 11:09 | Progress Note ---
Assessment and Plan Assessment and plan: --Gram-negative bacteremia/gram-negative sepsis Continue IV antibiotics, follow cultures and sensitivities IV fluids, ID consultation --Diabetic ketoacidosis/-diabetes mellitus Resolved, moderate control Accu-Chek sliding scale coverage and ADA diet and insulin Hemoglobin A1c Possible home health nurse for disease management and monitoring upon discharge --History of cirrhosis liver Supportive care patient will follow up with GI as outpatient upon discharge For further evaluation and management --Acute renal failure/vasomotor nephropathy Significantly improved, avoid nephrotoxic medications and closely monitor --The hyponatremia secondary to hyperglycemia Significant improvement of sodium levels closely monitor --Severe gram-negative sepsis/leukocytosis Continue current antibiotics follow cultures and sensitivities and adjust as needed --DVT prophylaxis with Lovenox DC planning with case management History Interval history: Patient seen and evaluated medical records reviewed That sugars are reasonable levels Patient has no new complaints Positive blood cultures /gram-negative bacteremia Patient is alert awake oriented 3 Not in acute distress vital signs reviewed Hospitalist Physical - Constitutional Vitals: Temp Pulse Resp BP Pulse Ox 99.1 F 104 H 18 121/61 97 08/26/16 08:00 08/26/16 08:00 08/26/16 08:00 08/26/16 08:00 08/26/16 08:00 General appearance: Present: mild distress, well-nourished, obese, other ( dehydrated) - EENT Eyes: Present: PERRL, EOM intact - Neck Neck: Present: supple, normal ROM - Respiratory Respiratory effort: normal Results - Labs CBC & Chem 7: 08/26/16 09:48 08/26/16 09:48 Labs: Laboratory Last Values WBC 25.9 K/mm3 (4.5-11.0) H 08/26/16 09:48 RBC 4.24 M/mm3 (3.65-5.03) 08/26/16 09:48 Hgb 12.3 gm/dl (10.1-14.3) 08/26/16 09:48 Hct 37.5 % (30.3-42.9) 08/26/16 09:48 MCV 88 fl (79-97) 08/26/16 09:48 MCH 29 pg (28-32) 08/26/16 09:48 MCHC 33 % (30-34) 08/26/16 09:48 RDW 19.8 % (13.2-15.2) H 08/26/16 09:48 Plt Count 112 K/mm3 (140-440) L 08/26/16 09:48 [place] % (Auto) [employer] Consultant 08/26/16 09:48 Add Manual Diff Complete 08/24/16 14:55 Total Counted 100 08/24/16 14:55 Seg Neuts % (Manual) 88.0 % (40.0-70.0) H 08/24/16 14:55 Band Neutrophils % 4.0 % 08/24/16 14:55 Lymphocytes % (Manual) 3.0 % (13.4-35.0) L 08/24/16 14:55 Reactive Lymphs % (Man) 0 % 08/24/16 14:55 Monocytes % (Manual) 3.0 % (0.0-7.3) 08/24/16 14:55 Eosinophils % (Manual) 0 % (0.0-4.3) 08/24/16 14:55 Basophils % (Manual) 0 % (0.0-1.8) 08/24/16 14:55 Metamyelocytes % 1.0 % 08/24/16 14:55 Myelocytes % 1.0 % 08/24/16 14:55 Promyelocytes % 0 % 08/24/16 14:55 Blast Cells % 0 % 08/24/16 14:55 Nucleated RBC % Not Reportable 08/24/16 14:55 Seg Neutrophils # Man 17.8 K/mm3 (1.8-7.7) H 08/24/16 14:55 Band Neutrophils # 0.8 K/mm3 08/24/16 14:55 Lymphocytes # (Manual) 0.6 K/mm3 (1.2-5.4) L 08/24/16 14:55 Abs React Lymphs (Man) 0.0 K/mm3 08/24/16 14:55 Monocytes # (Manual) 0.6 K/mm3 (0.0-0.8) 08/24/16 14:55 Eosinophils # (Manual) 0.0 K/mm3 (0.0-0.4) 08/24/16 14:55 Basophils # (Manual) 0.0 K/mm3 (0.0-0.1) 08/24/16 14:55 Metamyelocytes # 0.2 K/mm3 08/24/16 14:55 Myelocytes # 0.2 K/mm3 08/24/16 14:55 Promyelocytes # 0.0 K/mm3 08/24/16 14:55 Blast Cells # 0.0 K/mm3 08/24/16 14:55 WBC Morphology Not Reportable 08/24/16 14:55 Hypersegmented Neuts Not Reportable 08/24/16 14:55 Hyposegmented Neuts Not Reportable 08/24/16 14:55 Hypogranular Neuts Not Reportable 08/24/16 14:55 Smudge Cells Not Reportable 08/24/16 14:55 Toxic Granulation Not Reportable 08/24/16 14:55 Toxic Vacuolation Not Reportable 08/24/16 14:55 Dohle Bodies Not Reportable 08/24/16 14:55 Pelger-Huet Anomaly Not Reportable 08/24/16 14:55 Chary Rods Not Reportable 08/24/16 14:55 Platelet Estimate Appears decreased 08/24/16 14:55 Clumped Platelets Not Reportable 08/24/16 14:55 Plt Clumps, EDTA Not Reportable 08/24/16 14:55 Large Platelets Not Reportable 08/24/16 14:55 Giant Platelets Not Reportable 08/24/16 14:55 Platelet Satelliting Not Reportable 08/24/16 14:55 Plt Morphology Comment Not Reportable 08/24/16 14:55 RBC Morphology Not Reportable 08/24/16 14:55 Dimorphic RBCs Not Reportable 08/24/16 14:55 Polychromasia Not Reportable 08/24/16 14:55 Hypochromasia Not Reportable 08/24/16 14:55 Poikilocytosis 1+ 08/24/16 14:55 Anisocytosis 1+ 08/24/16 14:55 Microcytosis Not Reportable 08/24/16 14:55 Macrocytosis Not Reportable 08/24/16 14:55 Spherocytes Not Reportable 08/24/16 14:55 Pappenheimer Bodies Not Reportable 08/24/16 14:55 Sickle Cells Not Reportable 08/24/16 14:55 Target Cells Not Reportable 08/24/16 14:55 Tear Drop Cells Not Reportable 08/24/16 14:55 Ovalocytes Not Reportable 08/24/16 14:55 Helmet Cells Not Reportable 08/24/16 14:55 Paul-Ascutney Bodies Not Reportable 08/24/16 14:55 [place] Rings Not Reportable 08/24/16 14:55 Gr[place] Cells Not Reportable 08/24/16 14:55 Bite Cells Not Reportable 08/24/16 14:55 Crenated Cell Not Reportable 08/24/16 14:55 Elliptocytes Not Reportable 08/24/16 14:55 Acanthocytes (Spur) Not Reportable 08/24/16 14:55 Rouleaux Not Reportable 08/24/16 14:55 Hemoglobin C Crystals Not Reportable 08/24/16 14:55 Schistocytes Not Reportable 08/24/16 14:55 Malaria parasites Not Reportable 08/24/16 14:55 Zurdo Bodies Not Reportable 08/24/16 14:55 Hem Pathologist Commnt No 08/24/16 14:55 VBG pH 7.329 (7.320-7.420) 08/24/16 14:55 Sodium 134 mmol/L (137-145) L 08/26/16 09:48 Potassium 4.7 mmol/L (3.6-5.0) 08/26/16 09:48 Chloride 101.0 mmol/L (98-107) 08/26/16 09:48 Carbon Dioxide 19 mmol/L (22-30) L 08/26/16 09:48 Anion Gap 19 mmol/L 08/26/16 09:48 BUN 42 mg/dL (7-17) H 08/26/16 09:48 Creatinine 1.2 mg/dL (0.7-1.2) 08/26/16 09:48 Estimated GFR 59 ml/min 08/26/16 09:48 BUN/Creatinine Ratio 35.00 % 08/26/16 09:48 Glucose 297 mg/dL (65-100) H 08/26/16 09:48 POC Glucose 260 (70-105) H 08/26/16 06:09 Hemoglobin A1c 13.3 % (4-6) H 08/25/16 00:36 Calcium 8.1 mg/dL (8.4-10.2) L 08/26/16 09:48 Phosphorus 1.8 mg/dL (2.5-4.5) L 08/26/16 09:48 Magnesium 2.2 mg/dL (1.7-2.3) 08/26/16 09:48 Total Bilirubin 2.7 mg/dL (0.1-1.2) H 08/24/16 14:55 AST 57 units/L (5-40) H 08/24/16 14:55 ALT 35 units/L (7-56) 08/24/16 14:55 Alkaline Phosphatase 171 units/L (35-129) H 08/24/16 14:55 Total Protein 7.4 g/dL (6.3-8.2) 08/24/16 14:55 Albumin 2.2 g/dL (3.9-5) L 08/24/16 14:55 Albumin/Globulin Ratio 0.4 % 08/24/16 14:55 Lipase 148 units/L (13-60) H 08/24/16 14:55 HCG, Qual Negative (Negative) 08/24/16 14:55 Urine Color Yellow (Yellow) 08/25/16 02:17 Urine Turbidity Slightly-cloudy (Clear) 08/25/16 02:17 Urine pH 5.0 (5.0-7.0) 08/25/16 02:17 Ur Specific [place] 1.013 (1.003-1.030) 08/25/16 02:17 Urine Protein 30 mg/dl mg/dL (Negative) 08/25/16 02:17 Urine Glucose (UA) >=500 mg/dL (Negative) 08/25/16 02:17 Urine Ketones Neg mg/dL (Negative) 08/25/16 02:17 Urine Blood Sm (Negative) 08/25/16 02:17 Urine Nitrite Neg (Negative) 08/25/16 02:17 Urine Bilirubin Neg (Negative) 08/25/16 02:17 Urine Urobilinogen < 2.0 mg/dL (<2.0) 08/25/16 02:17 Ur Leukocyte Esterase Sm (Negative) 08/25/16 02:17 Urine WBC (Auto) 23.0 /HPF (0.0-6.0) H 08/25/16 02:17 Urine RBC (Auto) < 1.0 /HPF (0.0-6.0) 08/25/16 02:17 U Epithel Cells (Auto) < 1.0 /HPF (0-13.0) 08/25/16 02:17 Urine Bacteria (Auto) 4+ /HPF (Negative) 08/25/16 02:17 Urine Mucus Few /HPF 08/25/16 02:17 Ketones 29.2 mg/dL (0.2-2.8) H 08/24/16 14:55
--- NOTE | 2016-08-26 11:52 | Progress Note ---
Assessment and Plan - Patient Problems (1) DKA (diabetic ketoacidoses) Current Visit: Yes Status: Acute Plan to address problem: - resolved - on levemir - continue SSI (2) UTI (urinary tract infection) Current Visit: Yes Status: Acute Qualifiers: Urinary tract infection type: site unspecified Hematuria presence: without hematuria Qualified Code(s): N39.0 - Urinary tract infection, site not specified Plan to address problem: - continue empiric rocephin (3) Sepsis syndrome Current Visit: Yes Status: Acute Plan to address problem: - follow C&S on gram negative bacteremia - ID consulted - follow clinically (4) Autoimmune liver disease Current Visit: Yes Status: Acute Plan to address problem: - needs outpatient w/up for possible pulmonary involvement Subjective Date of service: 08/26/16 Principal diagnosis: DKA; Sepsis Syndrome; UTI Interval history: seen and examined at bedside; 24hour events reviewed; nursing and respiratory care staff consulted; no adverse overnight events reported to me; resting in bed ; feels a little better; denies acute chest pains or increased SOB; No emesis or overt aspiration Objective Vital Signs - 12hr 08/26/16 08:00 Temperature 99.1 F Pulse Rate [ 104 H Right Brachial] Respiratory 18 Rate Blood Pressure 121/61 [Right Radial Artery] O2 Sat by Pulse 97 Oximetry Constitutional: no acute distress, alert Eyes: non-icteric ENT: oropharynx moist Neck: supple Effort: normal Ascultation: Bilateral: clear, rales (inspiratory in bases) Cardiovascular: regular rate and rhythm Gastrointestinal: normoactive bowel sounds, soft, non-tender, non-distended Integumentary: normal Extremities: no cyanosis, no edema, pulses normal, no ischemia or petechiae Neurologic: normal mental status, non-focal exam, motor strength normal and Psychiatric: mood appropriate, affect normal CBC and BMP: 08/26/16 09:48 08/26/16 09:48 Abnormal lab findings: Abnormal Labs 08/24/16 08/24/16 08/24/16 20:00 23:24 23:38 WBC RDW Plt Count Sodium 126 L 128 L Potassium Chloride 93.5 L 94.2 L Carbon Dioxide 18 L 18 L BUN 50 H 50 H Creatinine 1.5 H 1.5 H Glucose 464 H 361 H POC Glucose 337 H Hemoglobin A1c Calcium 7.6 L 8.2 L Phosphorus Urine WBC (Auto) 08/25/16 08/25/16 08/25/16 00:36 00:36 00:36 WBC RDW Plt Count Sodium 127 L Potassium Chloride 92.6 L Carbon Dioxide 20 L BUN 50 H Creatinine 1.6 H Glucose 338 H POC Glucose Hemoglobin A1c 13.3 H Calcium Phosphorus 1.6 L Urine WBC (Auto) 08/25/16 08/25/16 08/25/16 00:54 01:50 02:17 WBC RDW Plt Count Sodium Potassium Chloride Carbon Dioxide BUN Creatinine Glucose POC Glucose 313 H 275 H Hemoglobin A1c Calcium Phosphorus Urine WBC (Auto) 23.0 H 08/25/16 08/25/16 08/25/16 03:00 03:49 04:49 WBC RDW Plt Count Sodium Potassium Chloride Carbon Dioxide BUN Creatinine Glucose POC Glucose 271 H 267 H 259 H Hemoglobin A1c Calcium Phosphorus Urine WBC (Auto) 08/25/16 08/25/16 08/25/16 05:47 06:10 06:59 WBC RDW Plt Count Sodium 131 L Potassium Chloride Carbon Dioxide 19 L BUN 45 H Creatinine 1.4 H Glucose 227 H POC Glucose 229 H 249 H Hemoglobin A1c Calcium 7.8 L Phosphorus Urine WBC (Auto) 08/25/16 08/25/16 08/25/16 07:34 08:10 09:06 WBC RDW Plt Count Sodium 133 L Potassium Chloride Carbon Dioxide 19 L BUN 46 H Creatinine 1.5 H Glucose 249 H POC Glucose 241 H 275 H Hemoglobin A1c Calcium 7.7 L Phosphorus Urine WBC (Auto) 08/25/16 08/25/16 08/25/16 10:23 10:30 11:39 WBC RDW Plt Count Sodium 134 L Potassium Chloride Carbon Dioxide 21 L BUN 45 H Creatinine 1.4 H Glucose 252 H POC Glucose 238 H 233 H Hemoglobin A1c Calcium 7.7 L Phosphorus Urine WBC (Auto) 08/25/16 08/25/16 08/25/16 12:48 13:44 14:40 WBC RDW Plt Count Sodium Potassium Chloride Carbon Dioxide BUN Creatinine Glucose POC Glucose 235 H 225 H 265 H Hemoglobin A1c Calcium Phosphorus Urine WBC (Auto) 08/25/16 08/25/16 08/25/16 15:40 17:26 17:27 WBC RDW Plt Count Sodium 128 L Potassium 5.2 H D Chloride 95.8 L Carbon Dioxide 18 L BUN 45 H Creatinine Glucose 250 H POC Glucose 289 H 272 H Hemoglobin A1c Calcium 7.9 L Phosphorus Urine WBC (Auto) 08/25/16 08/26/16 08/26/16 22:54 06:09 09:48 WBC 25.9 H RDW 19.8 H Plt Count 112 L Sodium Potassium Chloride Carbon Dioxide BUN Creatinine Glucose POC Glucose 130 H 260 H Hemoglobin A1c Calcium Phosphorus Urine WBC (Auto) 08/26/16 09:48 WBC RDW Plt Count Sodium 134 L Potassium Chloride Carbon Dioxide 19 L BUN 42 H Creatinine Glucose 297 H POC Glucose Hemoglobin A1c Calcium 8.1 L Phosphorus 1.8 L Urine WBC (Auto)
[2016-08-26 12:09] LABS: Anisocytosis 1+; Basophils % (Manual) 0 % (0.0-1.8); Blastocytes % (Manual) 0 %; Eosinophils % (Manual) 0 % (0.0-4.3); Poikilocytosis 1+; Total Cells Counted Percent 7.5
[2016-08-26 12:10] LABS: Diff Status Complete; Platelet Estimate Appears Decreased
[2016-08-26] MEDS ORDERED: KPHOS 45 MMOL in NACL 0.9% 500 ML 500 ML IV ONE (13:00)
[2016-08-26] MEDS ORDERED: FLUARIX QUAD 2016-2017(36 MOS+) IM ONE (14:00)
--- NOTE | 2016-08-26 14:02 | Consultation ---
History of Present Illness - Reason for Consult Consult date: 08/26/16 Gram negative bacteremia Requesting physician: ROMAN GANDHI - History of Present Illness Mesha Stahl is a 46-year-old female with type 2 diabetes mellitus with retinopathy, autoimmune hepatitis with resultant cirrhosis and HTN who was admitted to [facility] on 08/25/16 after presenting to the emergency department on with a 2 day history of nausea, vomiting and diarrhea. She had not taken insulin approximately one week and was found to have evidence of diabetic ketoacidosis. Admitting cultures are growing gram-negative rods. She did not have any subjective fever or chills prior to admission. She did not have any burning on urination but did have increased urinary frequency. She has no flank pain. She does have a history of previous urinary tract infections. She was seen in the [facility] ED on 07/25 with hypoglycemia and was put on 14 days of nitrofurantoin for a "UTI." She has not been on any recent immunosuppressant therapies. She is being followed at the [place] [facility]. Review of systems General: See HPI HEENT: no odynophagia, no dysphagia, no oral lesions, blind in left eye with some decreased vision in right eye from retinopathy. CV: no chest pain, no palpitations Chest: no dyspnea, no cough GI: no abdominal pain, no N/V, no diarrhea : no change in urinary frequency, no dysuria, no hematuria Skin: no rashes; Ext: No muscle or joint pain , No edema Neuro: no headaches, no numbness/tingling, no tremors Endocrine: No history of diabetes. Psych: no anxiety, no depression Infectious diseases: No HIV risk factors, No history of STDs, No significant travel or animal contact history. Medications and Allergies Allergies Allergy/AdvReac Type Severity Reaction Status Date / Time No Known Allergies Allergy Verified 07/25/16 12:59 Home Medications Medication Instructions Recorded Confirmed Last Taken Type Nitrofurantoin Hughes/M-Cryst 100 mg PO Q12HR #14 capsule 07/25/16 Unknown Rx [Macrobid CAP] Active Meds: Active Medications Acetaminophen (Tylenol) 650 mg PO Q4H PRN PRN Reason: Pain, Mild (1-3) Last Admin: 08/25/16 10:29 Dose: 650 mg Enoxaparin Sodium (Lovenox) 40 mg SUB-Q QDAY [facility] Last Admin: 08/26/16 10:04 Dose: 40 mg Ceftriaxone Sodium (Rocephin/Ns 2 Gm/100 Ml) 100 mls @ 200 mls/hr IV Q24HR [facility] Last Admin: 08/26/16 10:05 Dose: 200 mls/hr Sodium Chloride (Nacl 0.9% 1000 Ml) 1,000 mls @ 75 mls/hr IV DIRECT [facility] Last Admin: 08/26/16 00:36 Dose: 75 mls/hr Potassium Phosphate 45 mmol/ (Sodium Chloride) 515 mls @ 85 mls/hr IV ONCE ONE Stop: 08/26/16 19:03 Last Admin: 08/26/16 13:11 Dose: 85 mls/hr Influenza Virus Vaccine Quadrival (Fluarix Quad [id number](36 Mos+)) 60 mcg IM .ONCE ONE Stop: 08/26/16 14:01 Insulin Aspart (Novolog) 0 units SUB-Q ACHS [facility] PRN Reason: Protocol Last Admin: 08/26/16 13:15 Dose: 4 units Insulin Human Isoph/Insulin Regular (Novolin 70/30) 10 unit SUB-Q BIDDIAB [facility] Last Admin: 08/26/16 10:00 Dose: 10 unit Physical Examination - Physical Exam Narrative exam: GENERAL: Well-developed, well-nourished appearing female who is alert and in no acute distress. She appears somewhat chronically ill and also has a somewhat depressed affect. She is in no acute distress HEAD: Normocephalic. No lesions seen. EYES: Pupils are equal reactive to light and accommodation. There is no scleral icterus. Optic fundi are not examined. EARS: External ears are normal. THROAT: Oropharynx is normal with no evidence of oral candidiasis or pharyngitis. Uterus membranes are dry NECK: Supple. No enlargement of the thyroid gland. No significant cervical lymphadenopathy. No jugular venous distention at 30. LUNGS: Clear with no adventitious sounds. HEART: Regular rate. S1 and S2 are normal. There are no murmurs, gallops, clicks or rubs heard. ABDOMEN: Soft, not distended and nontender. Liver is not palpably enlarged or tender. Spleen tip is palpable approximately 2 cm below the left costal margin. No palpable masses. Bowel sounds are normoactive. No definite ascites. EXTREMITIES: No rash, peripheral lymphadenopathy, clubbing or edema. : Not examined. No Bl[place] catheter NEUROLOGIC: No focal findings. - Constitutional Vitals: Vital Signs Temp Pulse Resp BP Pulse Ox 99.1 F 104 H 18 121/61 97 08/26/16 08:00 08/26/16 08:00 08/26/16 08:00 08/26/16 08:00 08/26/16 08:00 Temperature -Last 24 Hours Temperature 99.1 F Temperature 98.3 F Temperature 99.3 F Results - Labs CBC & Chem 7: 08/26/16 09:48 08/26/16 09:48 Labs: Abnormal lab results Laboratory Tests 08/24/16 08/24/16 08/25/16 20:00 23:38 02:17 Carbon Dioxide 18 L POC Glucose 337 H Urine WBC (Auto) 23.0 H Urine Bacteria (Auto) 4+ Microbiology 08/25/16 02:17 Urine,Clean Catch Urine Culture - Preliminary Gram Negative [place] 08/24/16 16:38 Peripheral/Venous Blood Culture - Preliminary Gram Negative Tyrell 08/24/16 16:38 Peripheral/Venous Blood Culture - Preliminary Gram Negative Tyrell Imagin/11: CT abdomen/pelvis: Nodular liver with recanalization of the umbilical vein and multiple anterior abdominal wall varices, splenomegaly, small amount of ascites. Normal kidneys Assessment and Plan Current antibiotics: Ceftriaxone 2 g IV q24h 08/25 --> Previous antibiotics: Nitrofurantoin 1oo mh po BID ASSESSMENT: Mesha Stahl is a 46-year-old female with type 2 diabetes mellitus with retinopathy, autoimmune hepatitis with resultant cirrhosis and HTN who was admitted to [facility] on 08/25/16 after presenting to the emergency department on with a 2 day history of nausea, vomiting and diarrhea. She had not taken insulin approximately one week and was found to have evidence of diabetic ketoacidosis. Admitting cultures are growing gram-negative rods. Problem list: 1. Gram-negative bacteremia -Likely urinary tract source -2/4 bottles (one bottle from each set) positive 08/24 2. Complicated urinary tract infection -Associated bacteremia -> 100,000 and negative rods growing with further ID and sensitivity pending. -CT scan showed no evidence of ureteral obstruction 3. 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 Autoimmune hepatitis -Cirrhosis with portal hypertension 5. Leukocytosis -Secondary to #1 and #2 6. Thrombocytopenia -Secondary to #4 PLAN: 1. Continue ceftriaxone pending further culture data 2. Glycemic control as per primary team 3. Check liver tests 4. Hopefully gram-negative tyrell isolate will be quinolone sensitive and therapy can be finished with Cipro or Levaquin. If not she will need a course of IV antibiotics 5. Will recheck blood cultures to document clearance. Thank you for this consultation. We will follow with you. Tao Jordan MD [facility] Office: [phone]
[2016-08-26 16:03] LABS: Albumin 1.6 g/dL (3.9-5); Albumin/Globulin Ratio 0.3 %; Bilirubin,Direct 1.8 mg/dL (0-0.2); Bilirubin,Indirect 0.8 mg/dL; Bilirubin,Total 2.6 mg/dL (0.1-1.2); Total Protein 6.6 g/dL (6.3-8.2)
--- NOTE | 2016-08-26 22:41 | Consultation ---
CONSULTING PHYSICIAN: Ofelia Carney MD REASON FOR CONSULTATION: Diabetic ketoacidosis, need an ICU admission. CHIEF COMPLAINT AND HISTORY OF PRESENT ILLNESS: The patient is a 46-year-old -[place] female with past medical history indeed significant amongst other things for a diagnosis of diabetes for which she is on home insulin therapy, came into the Emergency Room complaining of about a couple of days of nausea, vomiting, and diarrhea. She told me she was taking her medications, but told the ER, she had been noncompliant with her insulin for about 10 days. She denied fevers or chills. She denied overt aspiration. She was also complaining of pain in the legs; however, denied overt leg swelling. She was evaluated in the Emergency Room, found to be in diabetic ketoacidosis and requiring IV insulin therapy, and we were asked to assist with management. When I stopped by to see her, she was feeling a little bit better, remained on the IV insulin drip, which has been weaned off though. Denied any current chest pain. With regards to tobacco use/abuse history, she denies any history of smoking whatsoever. That really is as much of the history of this presentation as I have. PAST MEDICAL HISTORY: Again, insulin-dependent diabetes, autoimmune hepatitis, liver cirrhosis, hypertension. PAST SURGICAL HISTORY: She has had benign tumor removed from her breasts bilaterally. She has had a liver biopsy. MEDICATIONS: She was on at the time I stopped by to see her, according to the medication administration record included the following: Tylenol 650 mg p.o. q. 4h. p.r.n. pain, Lovenox 40 mg subcutaneous daily, insulin, I believe she was at 5 units per hour at the time I saw her, IV insulin therapy. She was on D5 half NS with 20 mEq of KCl at 125 mL per hour. Rocephin, she received 2 gram IV q. 24h, and soon to begin long acting insulin once off the protocol. ALLERGIES: No known drug allergies. DIET: Slightly obese lady, denies acute weight loss or gain in the preceding few weeks to months. FAMILY AND SOCIAL HISTORY: Lives in the community. Denies alcohol, tobacco, or illicit drug use or abuse. REVIEW OF SYSTEMS: No loss of consciousness. No new onset seizures. She had weakness. No gross hematochezia or melena. She did have diarrhea. No gross hematuria or dysuria. No hematemesis. No hemoptysis. She did have nausea and vomiting. No palpitations. Complete review of systems obtained. Pertinent positives and/or negatives as in body of history above, otherwise noncontributory. PHYSICAL EXAMINATION: VITAL SIGNS: On presentation, she was afebrile, temperature 97.6. She had a low grade 99.6 later in the ER. Pulse was 112, respiratory rate was 20, blood pressure 127/51, oxygen sats were 99%, inspired oxygen concentration was not recorded. HEENT: She is legally blind, she tells me. The left pupil is irregular and largest diameter about 6 mm to 7 mm. The right pupil is somewhat ____. She has had surgical intervention on both eyes. Right pupil is sluggishly reactive to light. Extraocular muscle movements appeared intact. Grossly, there were no palpable lymph nodes in the supraclavicular or submandibular lymph node chains. Oropharynx is a Mallampati #2 oropharynx. No significant posterior oropharyngeal erythema. LUNGS: Auscultation of both lung bailon, occasional inspiratory rales, no wheezing bilaterally. HEART: Heart sounds 1 and 2 were heard, at the time of my evaluation, regular rate and rhythm. ABDOMEN: Soft. Bowel sounds are positive. Did not appear tender. EXTREMITIES: Without overt digital clubbing, cyanosis, or pedal edema. NEUROLOGIC: The exam was grossly nonfocal. LABORATORY DATA: From my review are as follows: Admission white count 20,200 with a hemoglobin of 11.9, hematocrit of 36.6, and platelets of 93. Venous blood gas pH 7.33. Serum sodium was 125, potassium 5.2, chloride 86, bicarbonate 14, BUN 50, creatinine 1.6, and a glucose of 594. AST was up at 57, total bilirubin was up at 2.7. Lipase was elevated at 148. Urinalysis negative for nitrites, did have small leukocyte esterase and 23 white cells per high power field. Serum ketones were elevated at 29.2. Radiographic studies have been reviewed. The chest x-ray was reported by the radiologist as normal chest x-ray. CT of the abdomen and pelvis was done. I have reviewed, in particular, the lower lung bailon, there is a lot motion artifact and perhaps some bullous disease in the region. ASSESSMENT AND PLAN: We have a middle-aged female in with diabetic ketoacidosis. She definitely needs IV insulin therapy and will be admitted to the Intensive Care Unit for that. I am bothered by the crackles, inspiratory crackles on physical examination, especially with her autoimmune problem, she may well have an element of autoimmune lung disease/parenchymal lung disease. She would certainly benefit in my opinion from pulmonary function testing and pulmonary evaluation that can be arranged postop for now. We will defer to treatment for the diabetic ketoacidosis. She remains on empiric antibiotic therapy. We will follow all cultures and deescalate based on the results of mechanical and microbiologic data. For now, we should continue current therapy initially source of infection being the urine is what we will expect. She will be placed on GI prophylaxis. Flu and pneumonia vaccination will be per protocol. Thank you very much for the consult. We will follow along and make further recommendations as picture progresses/becomes clearer. JOB# [id number] DANILO/LUDMILA
[2016-08-27] MEDS: NACL 0.9% 1000 ML 1,000 ML IV SCH ×2 (05:34→23:23)
[2016-08-27 06:40] LABS: Hematocrit 31.4 % (30.3-42.9); Hemoglobin 10.6 gm/dl (10.1-14.3); Mean Corpuscular HGB Conc 34 % (30-34); Mean Corpuscular Hemoglobin 29 pg (28-32); Mean Corpuscular Volume 87 fl (79-97); Platelet Count 114 K/mm3 (140-440); Red Blood Count 3.63 M/mm3 (3.65-5.03); Red Cell Distribution Width 19.8 % (13.2-15.2); White Blood Count 19.3 K/mm3 (4.5-11.0)
[2016-08-27 07:01] LABS: Anion Gap 17 mmol/L; BUN/Creatinine Ratio 33.63; Blood Urea Nitrogen 37 mg/dL (7-17); Calcium 7.6 mg/dL (8.4-10.2); Carbon Dioxide 19 mmol/L (22-30); Chloride 102.4 mmol/L (98-107); Glucose 266 mg/dL (65-100); Magnesium 2.2 mg/dL (1.7-2.3); Phosphorous 2.6 mg/dL (2.5-4.5); Potassium 4.5 mmol/L (3.6-5.0); Sodium 134 mmol/L (137-145)
[2016-08-27] MEDS: NOVOLOG SUB-Q SCH ×4 (08:56→23:23)
[2016-08-27 08:59] LABS: Anisocytosis 1+; Basophils % (Manual) 0 % (0.0-1.8); Blastocytes % (Manual) 0 %; Eosinophils % (Manual) 0 % (0.0-4.3)
[2016-08-27 09:00] LABS: Diff Status Complete; Platelet Estimate Consistent w Auto
--- NOTE | 2016-08-27 10:35 | Progress Note ---
Assessment and Plan Assessment and plan: --Gram-negative bacteremia/gram-negative sepsis Continue IV antibiotics, follow cultures sensitivities ID following --Diabetic ketoacidosis/-diabetes mellitus,Resolved, Patient's blood sugars uncontrolled , based morning dose of insulin for unknown reason Accu-Chek sliding scale coverage and ADA diet and insulin Hemoglobin A1c Possible home health nurse for disease management and monitoring upon discharge --History of cirrhosis liver Supportive care patient will follow up with GI as outpatient upon discharge For further evaluation and management --Acute renal failure/vasomotor nephropathy Significantly improved, avoid nephrotoxic medications and closely monitor --The hyponatremia secondary to hyperglycemia Significant improvement of sodium levels closely monitor --Severe gram-negative sepsis/leukocytosis Continue current antibiotics follow cultures and sensitivities and adjust as needed --DVT prophylaxis with Lovenox DC planning with case management History Interval history: Patient seen and evaluated medical records reviewed Patient feels slightly better, patient's blood sugars are uncontrolled Nurse reports that patient did not receive her morning insulin for unknown reason Patient is alert awake oriented 3 not in acute distress Vital signs reviewed Hospitalist Physical - Constitutional Vitals: Temp Pulse Resp BP Pulse Ox 97.9 F 94 H 18 124/60 99 08/27/16 08:00 08/27/16 08:00 08/27/16 08:00 08/27/16 08:00 08/27/16 08:00 General appearance: Present: mild distress, well-nourished, obese, other ( dehydrated) - EENT Eyes: Present: PERRL, EOM intact - Neck Neck: Present: supple, normal ROM - Respiratory Respiratory effort: normal Respiratory: bilateral: diminished, negative: rales, rhonchi, wheezing - Cardiovascular Rhythm: regular Heart Sounds: Present: S1 & S2 - Extremities Extremities: no ischemia, pulses intact, pulses symmetrical Peripheral Pulses: within normal limits - Abdominal General gastrointestinal: soft, non-tender, non-distended, normal bowel sounds - Integumentary Integumentary: Present: clear, warm - Psychiatric Psychiatric: appropriate mood/affect, cooperative - Neurologic Neurologic: CNII-XII intact, moves all extremities Results - Labs CBC & Chem 7: 08/27/16 05:18 08/27/16 05:18 Labs: Laboratory Last Values WBC 19.3 K/mm3 (4.5-11.0) H 08/27/16 05:18 RBC 3.63 M/mm3 (3.65-5.03) L 08/27/16 05:18 Hgb 10.6 gm/dl (10.1-14.3) 08/27/16 05:18 Hct 31.4 % (30.3-42.9) D 08/27/16 05:18 MCV 87 fl (79-97) 08/27/16 05:18 MCH 29 pg (28-32) 08/27/16 05:18 MCHC 34 % (30-34) 08/27/16 05:18 RDW 19.8 % (13.2-15.2) H 08/27/16 05:18 Plt Count 114 K/mm3 (140-440) L 08/27/16 05:18 Tyrrell % (Auto) Supervisor Drying 08/27/16 05:18 Add Manual Diff Complete 08/27/16 05:18 Total Counted 100 08/27/16 05:18 Seg Neuts % (Manual) 87.0 % (40.0-70.0) H 08/27/16 05:18 Band Neutrophils % 0 % 08/27/16 05:18 Lymphocytes % (Manual) 5.0 % (13.4-35.0) L 08/27/16 05:18 Reactive Lymphs % (Man) 0 % 08/27/16 05:18 Monocytes % (Manual) 6.0 % (0.0-7.3) 08/27/16 05:18 Eosinophils % (Manual) 0 % (0.0-4.3) 08/27/16 05:18 Basophils % (Manual) 0 % (0.0-1.8) 08/27/16 05:18 Metamyelocytes % 1.0 % 08/27/16 05:18 Myelocytes % 1.0 % 08/27/16 05:18 Promyelocytes % 0 % 08/27/16 05:18 Blast Cells % 0 % 08/27/16 05:18 Nucleated RBC % Not Reportable 08/27/16 05:18 Seg Neutrophils # Man 16.8 K/mm3 (1.8-7.7) H 08/27/16 05:18 Band Neutrophils # 0.0 K/mm3 08/27/16 05:18 Lymphocytes # (Manual) 1.0 K/mm3 (1.2-5.4) L 08/27/16 05:18 Abs React Lymphs (Man) 0.0 K/mm3 08/27/16 05:18 Monocytes # (Manual) 1.2 K/mm3 (0.0-0.8) H 08/27/16 05:18 Eosinophils # (Manual) 0.0 K/mm3 (0.0-0.4) 08/27/16 05:18 Basophils # (Manual) 0.0 K/mm3 (0.0-0.1) 08/27/16 05:18 Metamyelocytes # 0.2 K/mm3 08/27/16 05:18 Myelocytes # 0.2 K/mm3 08/27/16 05:18 Promyelocytes # 0.0 K/mm3 08/27/16 05:18 Blast Cells # 0.0 K/mm3 08/27/16 05:18 WBC Morphology Not Reportable 08/27/16 05:18 Hypersegmented Neuts Not Reportable 08/27/16 05:18 Hyposegmented Neuts Not Reportable 08/27/16 05:18 Hypogranular Neuts Not Reportable 08/27/16 05:18 Smudge Cells Not Reportable 08/27/16 05:18 Toxic Granulation Not Reportable 08/27/16 05:18 Toxic Vacuolation Not Reportable 08/27/16 05:18 Dohle Bodies Not Reportable 08/27/16 05:18 Pelger-Huet Anomaly Not Reportable 08/27/16 05:18 Chary Rods Not Reportable 08/27/16 05:18 Platelet Estimate Consistent w auto 08/27/16 05:18 Clumped Platelets Not Reportable 08/27/16 05:18 Plt Clumps, EDTA Not Reportable 08/27/16 05:18 Large Platelets Not Reportable 08/27/16 05:18 Giant Platelets Not Reportable 08/27/16 05:18 Platelet Satelliting Not Reportable 08/27/16 05:18 Plt Morphology Comment Not Reportable 08/27/16 05:18 RBC Morphology Not Reportable 08/27/16 05:18 Dimorphic RBCs Not Reportable 08/27/16 05:18 Polychromasia Not Reportable 08/27/16 05:18 Hypochromasia Not Reportable 08/27/16 05:18 Poikilocytosis Not Reportable 08/27/16 05:18 Anisocytosis 1+ 01/14/17 05:18 Microcytosis Not Reportable 08/27/16 05:18 Macrocytosis Not Reportable 08/27/16 05:18 Spherocytes Not Reportable 08/27/16 05:18 Pappenheimer Bodies Not Reportable 08/27/16 05:18 Sickle Cells Not Reportable 08/27/16 05:18 Target Cells Not Reportable 08/27/16 05:18 Tear Drop Cells Not Reportable 08/27/16 05:18 Ovalocytes Not Reportable 08/27/16 05:18 Helmet Cells Not Reportable 08/27/16 05:18 Paul-[place] Bodies Not Reportable 08/27/16 05:18 [place] Rings Not Reportable 08/27/16 05:18 [place] Cells Not Reportable 08/27/16 05:18 Bite Cells Not Reportable 08/27/16 05:18 Crenated Cell Not Reportable 08/27/16 05:18 Elliptocytes Not Reportable 08/27/16 05:18 Acanthocytes (Spur) Not Reportable 08/27/16 05:18 Rouleaux Not Reportable 08/27/16 05:18 Hemoglobin C Crystals Not Reportable 08/27/16 05:18 Schistocytes Not Reportable 08/27/16 05:18 Malaria parasites Not Reportable 08/27/16 05:18 Zurdo Bodies Not Reportable 08/27/16 05:18 Hem Pathologist Commnt No 08/27/16 05:18 VBG pH 7.329 (7.320-7.420) 08/24/16 14:55 Sodium 134 mmol/L (137-145) L 08/27/16 05:18 Potassium 4.5 mmol/L (3.6-5.0) 08/27/16 05:18 Chloride 102.4 mmol/L (98-107) 08/27/16 05:18 Carbon Dioxide 19 mmol/L (22-30) L 08/27/16 05:18 Anion Gap 17 mmol/L 08/27/16 05:18 BUN 37 mg/dL (7-17) H 08/27/16 05:18 Creatinine 1.1 mg/dL (0.7-1.2) 08/27/16 05:18 Estimated GFR > 60 ml/min 08/27/16 05:18 BUN/Creatinine Ratio 33.63 % 08/27/16 05:18 Glucose 266 mg/dL (65-100) H 08/27/16 05:18 POC Glucose 277 (70-105) H 08/27/16 06:34 Hemoglobin A1c 13.3 % (4-6) H 08/25/16 00:36 Calcium 7.6 mg/dL (8.4-10.2) L 08/27/16 05:18 Phosphorus 2.6 mg/dL (2.5-4.5) D 08/27/16 05:18 Magnesium 2.2 mg/dL (1.7-2.3) 08/27/16 05:18 Total Bilirubin 2.6 mg/dL (0.1-1.2) H 08/26/16 15:07 Direct Bilirubin 1.8 mg/dL (0-0.2) H 08/26/16 15:07 Indirect Bilirubin 0.8 mg/dL 08/26/16 15:07 AST 47 units/L (5-40) H 08/26/16 15:07 ALT 24 units/L (7-56) 08/26/16 15:07 Alkaline Phosphatase 148 units/L (35-129) H 08/26/16 15:07 Total Protein 6.6 g/dL (6.3-8.2) 08/26/16 15:07 Albumin 1.6 g/dL (3.9-5) L 08/26/16 15:07 Albumin/Globulin Ratio 0.3 % 08/26/16 15:07 Lipase 148 units/L (13-60) H 08/24/16 14:55 HCG, Qual Negative (Negative) 08/24/16 14:55 Urine Color Yellow (Yellow) 08/25/16 02:17 Urine Turbidity Slightly-cloudy (Clear) 08/25/16 02:17 Urine pH 5.0 (5.0-7.0) 08/25/16 02:17 Ur Specific [place] 1.013 (1.003-1.030) 08/25/16 02:17 Urine Protein 30 mg/dl mg/dL (Negative) 08/25/16 02:17 Urine Glucose (UA) >=500 mg/dL (Negative) 08/25/16 02:17 Urine Ketones Neg mg/dL (Negative) 08/25/16 02:17 Urine Blood Sm (Negative) 08/25/16 02:17 Urine Nitrite Neg (Negative) 08/25/16 02:17 Urine Bilirubin Neg (Negative) 08/25/16 02:17 Urine Urobilinogen < 2.0 mg/dL (<2.0) 08/25/16 02:17 Ur Leukocyte Esterase Sm (Negative) 08/25/16 02:17 Urine WBC (Auto) 23.0 /HPF (0.0-6.0) H 08/25/16 02:17 Urine RBC (Auto) < 1.0 /HPF (0.0-6.0) 08/25/16 02:17 U Epithel Cells (Auto) < 1.0 /HPF (0-13.0) 08/25/16 02:17 Urine Bacteria (Auto) 4+ /HPF (Negative) 08/25/16 02:17 Urine Mucus Few /HPF 08/25/16 02:17 Ketones 29.2 mg/dL (0.2-2.8) H 08/24/16 14:55
[2016-08-27] MEDS ORDERED: FLUARIX QUAD 2016-2017(36 MOS+) IM ONE (12:00)
[2016-08-27] MEDS: LOVENOX SUB-Q SCH (12:25)
[2016-08-27] MEDS: ROCEPHIN/NS 2 GM/100 ML 100 ML IV SCH (14:10)
--- NOTE | 2016-08-27 14:14 | Progress Note ---
Assessment and Plan Current antibiotics: Ceftriaxone 2 g IV q24h 08/25 --> Previous antibiotics: Nitrofurantoin 1oo mh po BID ASSESSMENT: Mesha Stahl is a 46-year-old female with type 2 diabetes mellitus with retinopathy, autoimmune hepatitis with resultant cirrhosis and HTN who was admitted to [facility] on 08/25/16 after presenting to the emergency department on with a 2 day history of nausea, vomiting and diarrhea. She had not taken insulin approximately one week and was found to have evidence of diabetic ketoacidosis. Admitting cultures are growing gram-negative rods. Problem list: 1. Gram-negative bacteremia -Likely urinary tract source -2/ bottles (one bottle from each set) positive 08/24 --urine and blood with gram negative rods 2. Complicated urinary tract infection -Associated bacteremia -> 100,000 and negative rods growing with further ID and sensitivity pending. -CT scan showed no evidence of ureteral obstruction 3. 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 Autoimmune hepatitis -Cirrhosis with portal hypertension 5. Leukocytosis -Secondary to #1 and #2 --decreasing 6. Thrombocytopenia -Secondary to #4 -slightly improved PLAN: 1. Continue ceftriaxone, will deescalate once culture is finalized 2. monitor liver function test while on ceftriaxone 3. Check liver tests 4.follow up repeat blood cultures Subjective Date of service: 08/27/16 Principal diagnosis: DKA; Sepsis Syndrome; UTI Interval history: Patient reports that she is feeling better, she has no fevers or chills Objective - Exam Narrative Exam: Selected Entries 08/27/16 08:00 Temperature 97.9 F Pulse Rate [ 94 H Left Radial] Respiratory 18 Rate O2 Sat by Pulse 99 Oximetry Blood Pressure 124/60 [Right Radial Artery] Blood Pressure 81 Mean [Right Radial Artery] - Constitutional Vitals: Vital Signs Temp Pulse Resp BP Pulse Ox 97.9 F 94 H 18 124/60 99 08/27/16 08:00 08/27/16 08:00 08/27/16 08:00 08/27/16 08:00 08/27/16 08:00 Temperature -Last 24 Hours Temperature 97.9 F Temperature 99.5 F Temperature 97.8 F General appearance: Present: no acute distress, well-nourished - EENT Eyes: PERRL, EOM intact, no scleral icterus, no conjunctival injection ENT: hearing intact, clear oral mucosa, dentition normal Ears: bilateral: normal - Neck Neck: supple, normal ROM - Respiratory Respiratory effort: normal Respiratory: bilateral: CTA - Breasts Breasts: deferred - Cardiovascular Rhythm: regular Heart Sounds: Present: S1 & S2 Extremities: no ischemia, pulses intact, No edema - Gastrointestinal General gastrointestinal: Present: soft, tender (mild), distended, normal bowel sounds, hepatomegaly Rectal Exam: deferred - Genitourinary Female genitourinary: deferred - Integumentary Integumentary: clear, warm, dry - Musculoskeletal Musculoskeletal: strength equal bilaterally - Labs CBC & Chem 7: 08/27/16 05:18 08/27/16 05:18 Labs: Microbiology 08/26/16 15:08 Peripheral/Venous Blood Culture - Preliminary Culture in Progress 08/26/16 15:02 Peripheral/Venous Blood Culture - Preliminary Culture in Progress 08/25/16 02:17 Urine,Clean Catch Urine Culture - Preliminary Gram Negative Tyrell 08/24/16 16:38 Peripheral/Venous Blood Culture - Preliminary Gram Negative Tyrell 08/24/16 16:38 Peripheral/Venous Blood Culture - Preliminary Gram Negative Tyrell Laboratory Tests 08/24/16 08/25/16 08/26/16 14:55 02:17 09:48 WBC 25.9 H Plt Count Creatinine Estimated GFR Urine WBC (Auto) 23.0 H Ketones 29.2 H 08/27/16 08/27/16 05:18 05:18 WBC 19.3 H Plt Count 114 L Creatinine 1.1 Estimated GFR > 60 Urine WBC (Auto) Ketones
--- NOTE | 2016-08-27 23:42 | Progress Note ---
Assessment and Plan Patient resting on room air. No complaint of chest pain or shortness of breath.Alert,awake and oriented. - Patient Problems (1) Autoimmune liver disease Current Visit: Yes Status: Acute Plan to address problem: Management as per primary care. (2) Cirrhosis Current Visit: Yes Status: Acute Plan to address problem: Management as per primary care. Recommend to consult gastroenterology. (3) DKA (diabetic ketoacidoses) Current Visit: Yes Status: Acute Plan to address problem: Improved. Patgient is on insulin. (4) Sepsis syndrome Current Visit: Yes Status: Acute Plan to address problem: Patient presently on ceftrioxone. Management as per infectious diseases. Subjective Date of service: 08/27/16 Principal diagnosis: DKA; Sepsis Syndrome; UTI Interval history: Patient resting on room air. No complaint of chest pain or shortness of breath.Alert,awake and oriented. Objective Vital Signs - 12hr 08/27/16 16:00 Temperature 98 F Pulse Rate [ 91 H Left Radial] Respiratory 18 Rate Blood Pressure 121/62 [Right Radial Artery] Constitutional: no acute distress, alert Eyes: non-icteric ENT: oropharynx moist Neck: supple Effort: normal Ascultation: Bilateral: rales (inspiratory in bases) Cardiovascular: regular rate and rhythm Gastrointestinal: normoactive bowel sounds, soft, non-tender, non-distended Integumentary: normal Extremities: no cyanosis, no edema, pulses normal, no ischemia or petechiae Neurologic: normal mental status, non-focal exam, motor strength normal and Psychiatric: mood appropriate, affect normal CBC and BMP: 08/27/16 05:18 08/27/16 05:18 Abnormal lab findings: Abnormal Labs 08/24/16 08/24/16 08/24/16 20:00 23:24 23:38 WBC RBC RDW Plt Count Seg Neuts % (Manual) Lymphocytes % (Manual) Nucleated RBC % Seg Neutrophils # Man Lymphocytes # (Manual) Monocytes # (Manual) Sodium 126 L 128 L Potassium Chloride 93.5 L 94.2 L Carbon Dioxide 18 L 18 L BUN 50 H 50 H Creatinine 1.5 H 1.5 H Glucose 464 H 361 H POC Glucose 337 H Hemoglobin A1c Calcium 7.6 L 8.2 L Phosphorus Total Bilirubin Direct Bilirubin AST Alkaline Phosphatase Albumin Urine WBC (Auto) 08/25/16 08/25/16 08/25/16 00:36 00:36 00:36 WBC RBC RDW Plt Count Seg Neuts % (Manual) Lymphocytes % (Manual) Nucleated RBC % Seg Neutrophils # Man Lymphocytes # (Manual) Monocytes # (Manual) Sodium 127 L Potassium Chloride 92.6 L Carbon Dioxide 20 L BUN 50 H Creatinine 1.6 H Glucose 338 H POC Glucose Hemoglobin A1c 13.3 H Calcium Phosphorus 1.6 L Total Bilirubin Direct Bilirubin AST Alkaline Phosphatase Albumin Urine WBC (Auto) 08/25/16 08/25/16 08/25/16 00:54 01:50 02:17 WBC RBC RDW Plt Count Seg Neuts % (Manual) Lymphocytes % (Manual) Nucleated RBC % Seg Neutrophils # Man Lymphocytes # (Manual) Monocytes # (Manual) Sodium Potassium Chloride Carbon Dioxide BUN Creatinine Glucose POC Glucose 313 H 275 H Hemoglobin A1c Calcium Phosphorus Total Bilirubin Direct Bilirubin AST Alkaline Phosphatase Albumin Urine WBC (Auto) 23.0 H 08/25/16 08/25/16 08/25/16 03:00 03:49 04:49 WBC RBC RDW Plt Count Seg Neuts % (Manual) Lymphocytes % (Manual) Nucleated RBC % Seg Neutrophils # Man Lymphocytes # (Manual) Monocytes # (Manual) Sodium Potassium Chloride Carbon Dioxide BUN Creatinine Glucose POC Glucose 271 H 267 H 259 H Hemoglobin A1c Calcium Phosphorus Total Bilirubin Direct Bilirubin AST Alkaline Phosphatase Albumin Urine WBC (Auto) 08/25/16 08/25/16 08/25/16 05:47 06:10 06:59 WBC RBC RDW Plt Count Seg Neuts % (Manual) Lymphocytes % (Manual) Nucleated RBC % Seg Neutrophils # Man Lymphocytes # (Manual) Monocytes # (Manual) Sodium 131 L Potassium Chloride Carbon Dioxide 19 L BUN 45 H Creatinine 1.4 H Glucose 227 H POC Glucose 229 H 249 H Hemoglobin A1c Calcium 7.8 L Phosphorus Total Bilirubin Direct Bilirubin AST Alkaline Phosphatase Albumin Urine WBC (Auto) 08/25/16 08/25/16 08/25/16 07:34 08:10 09:06 WBC RBC RDW Plt Count Seg Neuts % (Manual) Lymphocytes % (Manual) Nucleated RBC % Seg Neutrophils # Man Lymphocytes # (Manual) Monocytes # (Manual) Sodium 133 L Potassium Chloride Carbon Dioxide 19 L BUN 46 H Creatinine 1.5 H Glucose 249 H POC Glucose 241 H 275 H Hemoglobin A1c Calcium 7.7 L Phosphorus Total Bilirubin Direct Bilirubin AST Alkaline Phosphatase Albumin Urine WBC (Auto) 0108/25/16 08/25/16 10:23 10:30 11:39 WBC RBC RDW Plt Count Seg Neuts % (Manual) Lymphocytes % (Manual) Nucleated RBC % Seg Neutrophils # Man Lymphocytes # (Manual) Monocytes # (Manual) Sodium 134 L Potassium Chloride Carbon Dioxide 21 L BUN 45 H Creatinine 1.4 H Glucose 252 H POC Glucose 238 H 233 H Hemoglobin A1c Calcium 7.7 L Phosphorus Total Bilirubin Direct Bilirubin AST Alkaline Phosphatase Albumin Urine WBC (Auto) 08/25/16 08/25/16 08/25/16 12:48 13:44 14:40 WBC RBC RDW Plt Count Seg Neuts % (Manual) Lymphocytes % (Manual) Nucleated RBC % Seg Neutrophils # Man Lymphocytes # (Manual) Monocytes # (Manual) Sodium Potassium Chloride Carbon Dioxide BUN Creatinine Glucose POC Glucose 235 H 225 H 265 H Hemoglobin A1c Calcium Phosphorus Total Bilirubin Direct Bilirubin AST Alkaline Phosphatase Albumin Urine WBC (Auto) 08/25/16 08/25/16 08/25/16 15:40 17:26 17:27 WBC RBC RDW Plt Count Seg Neuts % (Manual) Lymphocytes % (Manual) Nucleated RBC % Seg Neutrophils # Man Lymphocytes # (Manual) Monocytes # (Manual) Sodium 128 L Potassium 5.2 H D Chloride 95.8 L Carbon Dioxide 18 L BUN 45 H Creatinine Glucose 250 H POC Glucose 289 H 272 H Hemoglobin A1c Calcium 7.9 L Phosphorus Total Bilirubin Direct Bilirubin AST Alkaline Phosphatase Albumin Urine WBC (Auto) 08/25/16 08/26/16 08/26/16 22:54 06:09 09:48 WBC 25.9 H RBC RDW 19.8 H Plt Count 112 L Seg Neuts % (Manual) 89.5 H Lymphocytes % (Manual) 2.0 L Nucleated RBC % 3.0 H Seg Neutrophils # Man 23.2 H Lymphocytes # (Manual) 0.5 L Monocytes # (Manual) 0.9 H Sodium Potassium Chloride Carbon Dioxide BUN Creatinine Glucose POC Glucose 130 H 260 H Hemoglobin A1c Calcium Phosphorus Total Bilirubin Direct Bilirubin AST Alkaline Phosphatase Albumin Urine WBC (Auto) 08/26/16 08/26/16 08/26/16 09:48 12:19 15:07 WBC RBC RDW Plt Count Seg Neuts % (Manual) Lymphocytes % (Manual) Nucleated RBC % Seg Neutrophils # Man Lymphocytes # (Manual) Monocytes # (Manual) Sodium 134 L Potassium Chloride Carbon Dioxide 19 L BUN 42 H Creatinine Glucose 297 H POC Glucose 277 H Hemoglobin A1c Calcium 8.1 L Phosphorus 1.8 L Total Bilirubin 2.6 H Direct Bilirubin 1.8 H AST 47 H Alkaline Phosphatase 148 H Albumin 1.6 L Urine WBC (Auto) 08/26/16 08/26/16 08/26/16 16:35 21:12 21:48 WBC RBC RDW Plt Count Seg Neuts % (Manual) Lymphocytes % (Manual) Nucleated RBC % Seg Neutrophils # Man Lymphocytes # (Manual) Monocytes # (Manual) Sodium Potassium Chloride Carbon Dioxide BUN Creatinine Glucose POC Glucose 325 H 311 H 299 H Hemoglobin A1c Calcium Phosphorus Total Bilirubin Direct Bilirubin AST Alkaline Phosphatase Albumin Urine WBC (Auto) 08/27/16 08/27/16 08/27/16 05:18 05:18 06:34 WBC 19.3 H RBC 3.63 L RDW 19.8 H Plt Count 114 L Seg Neuts % (Manual) 87.0 H Lymphocytes % (Manual) 5.0 L Nucleated RBC % Seg Neutrophils # Man 16.8 H Lymphocytes # (Manual) 1.0 L Monocytes # (Manual) 1.2 H Sodium 134 L Potassium Chloride Carbon Dioxide 19 L BUN 37 H Creatinine Glucose 266 H POC Glucose 277 H Hemoglobin A1c Calcium 7.6 L Phosphorus Total Bilirubin Direct Bilirubin AST Alkaline Phosphatase Albumin Urine WBC (Auto) 08/27/16 08/27/16 08/27/16 11:56 16:15 21:35 WBC RBC RDW Plt Count Seg Neuts % (Manual) Lymphocytes % (Manual) Nucleated RBC % Seg Neutrophils # Man Lymphocytes # (Manual) Monocytes # (Manual) Sodium Potassium Chloride Carbon Dioxide BUN Creatinine Glucose POC Glucose 369 H 355 H 432 H Hemoglobin A1c Calcium Phosphorus Total Bilirubin Direct Bilirubin AST Alkaline Phosphatase Albumin Urine WBC (Auto) Chest x-ray: report reviewed (Normal chest xray.), image reviewed
[2016-08-28] MEDS ORDERED: ZOFRAN IV PRN (06:25)
--- NOTE | 2016-08-28 07:34 | Progress Note ---
Hospitalist Physical - Constitutional Vitals: Temp Pulse Resp BP Pulse Ox 98.7 F 96 H 18 112/69 10 L 08/27/16 23:00 08/27/16 23:00 08/27/16 23:00 08/27/16 23:00 08/27/16 23:00 General appearance: Present: mild distress, well-nourished, obese, other ( dehydrated) Results - Labs CBC & Chem 7: 08/27/16 05:18 08/27/16 05:18 Labs: Laboratory Last Values WBC 19.3 K/mm3 (4.5-11.0) H 08/27/16 05:18 RBC 3.63 M/mm3 (3.65-5.03) L 08/27/16 05:18 Hgb 10.6 gm/dl (10.1-14.3) 08/27/16 05:18 Hct 31.4 % (30.3-42.9) D 08/27/16 05:18 MCV 87 fl (79-97) 08/27/16 05:18 MCH 29 pg (28-32) 08/27/16 05:18 MCHC 34 % (30-34) 08/27/16 05:18 RDW 19.8 % (13.2-15.2) H 08/27/16 05:18 Plt Count 114 K/mm3 (140-440) L 08/27/16 05:18 [place] % (Auto) Auto Wrecker 08/27/16 05:18 Add Manual Diff Complete 08/27/16 05:18 Total Counted 100 08/27/16 05:18 Seg Neuts % (Manual) 87.0 % (40.0-70.0) H 08/27/16 05:18 Band Neutrophils % 0 % 08/27/16 05:18 Lymphocytes % (Manual) 5.0 % (13.4-35.0) L 08/27/16 05:18 Reactive Lymphs % (Man) 0 % 08/27/16 05:18 Monocytes % (Manual) 6.0 % (0.0-7.3) 08/27/16 05:18 Eosinophils % (Manual) 0 % (0.0-4.3) 08/27/16 05:18 Basophils % (Manual) 0 % (0.0-1.8) 08/27/16 05:18 Metamyelocytes % 1.0 % 08/27/16 05:18 Myelocytes % 1.0 % 08/27/16 05:18 Promyelocytes % 0 % 08/27/16 05:18 Blast Cells % 0 % 08/27/16 05:18 Nucleated RBC % Not Reportable 08/27/16 05:18 Seg Neutrophils # Man 16.8 K/mm3 (1.8-7.7) H 08/27/16 05:18 Band Neutrophils # 0.0 K/mm3 08/27/16 05:18 Lymphocytes # (Manual) 1.0 K/mm3 (1.2-5.4) L 08/27/16 05:18 Abs React Lymphs (Man) 0.0 K/mm3 08/27/16 05:18 Monocytes # (Manual) 1.2 K/mm3 (0.0-0.8) H 08/27/16 05:18 Eosinophils # (Manual) 0.0 K/mm3 (0.0-0.4) 08/27/16 05:18 Basophils # (Manual) 0.0 K/mm3 (0.0-0.1) 08/27/16 05:18 Metamyelocytes # 0.2 K/mm3 08/27/16 05:18 Myelocytes # 0.2 K/mm3 08/27/16 05:18 Promyelocytes # 0.0 K/mm3 08/27/16 05:18 Blast Cells # 0.0 K/mm3 08/27/16 05:18 WBC Morphology Not Reportable 08/27/16 05:18 Hypersegmented Neuts Not Reportable 08/27/16 05:18 Hyposegmented Neuts Not Reportable 08/27/16 05:18 Hypogranular Neuts Not Reportable 08/27/16 05:18 Smudge Cells Not Reportable 08/27/16 05:18 Toxic Granulation Not Reportable 08/27/16 05:18 Toxic Vacuolation Not Reportable 08/27/16 05:18 Dohle Bodies Not Reportable 08/27/16 05:18 Pelger-Huet Anomaly Not Reportable 08/27/16 05:18 Chary Rods Not Reportable 08/27/16 05:18 Platelet Estimate Consistent w auto 08/27/16 05:18 Clumped Platelets Not Reportable 08/27/16 05:18 Plt Clumps, EDTA Not Reportable 08/27/16 05:18 Large Platelets Not Reportable 08/27/16 05:18 Giant Platelets Not Reportable 08/27/16 05:18 Platelet Satelliting Not Reportable 08/27/16 05:18 Plt Morphology Comment Not Reportable 08/27/16 05:18 RBC Morphology Not Reportable 08/27/16 05:18 Dimorphic RBCs Not Reportable 08/27/16 05:18 Polychromasia Not Reportable 08/27/16 05:18 Hypochromasia Not Reportable 08/27/16 05:18 Poikilocytosis Not Reportable 08/27/16 05:18 Anisocytosis 1+ 08/27/16 05:18 Microcytosis Not Reportable 08/27/16 05:18 Macrocytosis Not Reportable 08/27/16 05:18 Spherocytes Not Reportable 08/27/16 05:18 Pappenheimer Bodies Not Reportable 08/27/16 05:18 Sickle Cells Not Reportable 08/27/16 05:18 Target Cells Not Reportable 08/27/16 05:18 Tear Drop Cells Not Reportable 08/27/16 05:18 Ovalocytes Not Reportable 08/27/16 05:18 Helmet Cells Not Reportable 08/27/16 05:18 Paul-Marceline Bodies Not Reportable 08/27/16 05:18 [place] Rings Not Reportable 08/27/16 05:18 Marilyn Cells Not Reportable 08/27/16 05:18 Bite Cells Not Reportable 08/27/16 05:18 Crenated Cell Not Reportable 08/27/16 05:18 Elliptocytes Not Reportable 08/27/16 05:18 Acanthocytes (Spur) Not Reportable 08/27/16 05:18 Rouleaux Not Reportable 08/27/16 05:18 Hemoglobin C Crystals Not Reportable 08/27/16 05:18 Schistocytes Not Reportable 08/27/16 05:18 Malaria parasites Not Reportable 08/27/16 05:18 [place] Bodies Not Reportable 08/27/16 05:18 Hem Pathologist Commnt No 08/27/16 05:18 VBG pH 7.329 (7.320-7.420) 08/24/16 14:55 Sodium 134 mmol/L (137-145) L 08/27/16 05:18 Potassium 4.5 mmol/L (3.6-5.0) 08/27/16 05:18 Chloride 102.4 mmol/L (98-107) 08/27/16 05:18 Carbon Dioxide 19 mmol/L (22-30) L 08/27/16 05:18 Anion Gap 17 mmol/L 08/27/16 05:18 BUN 37 mg/dL (7-17) H 08/27/16 05:18 Creatinine 1.1 mg/dL (0.7-1.2) 08/27/16 05:18 Estimated GFR > 60 ml/min 08/27/16 05:18 BUN/Creatinine Ratio 33.63 % 08/27/16 05:18 Glucose 266 mg/dL (65-100) H 08/27/16 05:18 POC Glucose 296 (70-105) H 08/28/16 06:25 Hemoglobin A1c 13.3 % (4-6) H 08/25/16 00:36 Calcium 7.6 mg/dL (8.4-10.2) L 08/27/16 05:18 Phosphorus 2.6 mg/dL (2.5-4.5) D 08/27/16 05:18 Magnesium 2.2 mg/dL (1.7-2.3) 08/27/16 05:18 Total Bilirubin 2.6 mg/dL (0.1-1.2) H 08/26/16 15:07 Direct Bilirubin 1.8 mg/dL (0-0.2) H 08/26/16 15:07 Indirect Bilirubin 0.8 mg/dL 08/26/16 15:07 AST 47 units/L (5-40) H 08/26/16 15:07 ALT 24 units/L (7-56) 08/26/16 15:07 Alkaline Phosphatase 148 units/L (35-129) H 08/26/16 15:07 Total Protein 6.6 g/dL (6.3-8.2) 08/26/16 15:07 Albumin 1.6 g/dL (3.9-5) L 08/26/16 15:07 Albumin/Globulin Ratio 0.3 % 08/26/16 15:07 Lipase 148 units/L (13-60) H 08/24/16 14:55 HCG, Qual Negative (Negative) 08/24/16 14:55 Urine Color Yellow (Yellow) 08/25/16 02:17 Urine Turbidity Slightly-cloudy (Clear) 08/25/16 02:17 Urine pH 5.0 (5.0-7.0) 08/25/16 02:17 Ur Specific [place] 1.013 (1.003-1.030) 08/25/16 02:17 Urine Protein 30 mg/dl mg/dL (Negative) 08/25/16 02:17 Urine Glucose (UA) >=500 mg/dL (Negative) 08/25/16 02:17 Urine Ketones Neg mg/dL (Negative) 08/25/16 02:17 Urine Blood Sm (Negative) 08/25/16 02:17 Urine Nitrite Neg (Negative) 08/25/16 02:17 Urine Bilirubin Neg (Negative) 08/25/16 02:17 Urine Urobilinogen < 2.0 mg/dL (<2.0) 08/25/16 02:17 Ur Leukocyte Esterase Sm (Negative) 08/25/16 02:17 Urine WBC (Auto) 23.0 /HPF (0.0-6.0) H 08/25/16 02:17 Urine RBC (Auto) < 1.0 /HPF (0.0-6.0) 08/25/16 02:17 U Epithel Cells (Auto) < 1.0 /HPF (0-13.0) 08/25/16 02:17 Urine Bacteria (Auto) 4+ /HPF (Negative) 08/25/16 02:17 Urine Mucus Few /HPF 08/25/16 02:17 Ketones 29.2 mg/dL (0.2-2.8) H 08/24/16 14:55
[2016-08-28] MEDS: NOVOLOG SUB-Q SCH ×2 (08:49→12:32)
[2016-08-28 09:21] VITALS: BP 115/67
--- NOTE | 2016-08-28 12:10 | Discharge Summary ---
Providers - Providers Date of Admission: 08/24/16 19:05 Date of discharge: 08/28/16 Attending physician: ROMAN GANDHI 08/24/16 19:47 Consult to Physician [CONS] Routine Consulting Provider: PHONG AKERS Reason For Exam: ICU Admission Place consult to:: Design Engineering Technician Notified:: no 08/25/16 00:33 Consult to Dietitian/Nutrition [CONS] Routine Physician Instructions: Reason For Exam: Reason for Consult: Nutrition Recommendations Reason for Consult: Diet education 08/26/16 12:06 Consult to Physician [CONS] Routine Consulting Provider: ELEN RUBIO Reason For Exam: gram negative sepsis Place consult to:: Notified:: DR. RUBIO Phone number called:: IN HOUSE Was contact made?: Yes If yes, spoke with:: DR. RUBIO Time called:: 11:23 Primary care physician: RN PROCEDURE Hospitalization Condition: Fair Disposition: DC/TX HOME UNDER HOME HEALTH Core Measure Documentation - Palliative Care Palliative Care/ Comfort Measures: Not Applicable - Core Measures Any of the following diagnoses?: none Exam - Constitutional Vitals: Temp Pulse Resp BP Pulse Ox 99.1 F 96 H 18 115/67 100 08/28/16 08:00 08/28/16 08:00 08/28/16 08:00 08/28/16 08:00 08/28/16 08:00 General appearance: Present: no acute distress, well-nourished - EENT Eyes: Present: PERRL, EOM intact - Neck Neck: Present: supple, normal ROM - Respiratory Respiratory effort: normal Respiratory: bilateral: diminished, negative: rales, rhonchi, wheezing - Cardiovascular Rhythm: regular Heart Sounds: Present: S1 & S2 - Extremities Extremities: no ischemia, pulses intact, pulses symmetrical Peripheral Pulses: within normal limits - Abdominal General gastrointestinal: Present: soft, non-tender, non-distended, normal bowel sounds - Integumentary Integumentary: Present: clear, warm - Musculoskeletal Musculoskeletal: strength equal bilaterally - Psychiatric Psychiatric: appropriate mood/affect, cooperative - Neurologic Neurologic: CNII-XII intact, moves all extremities Plan Activity: no restrictions Diet: low salt, diabetic, advance as tolerated Additional Instructions: f/u private GI per schedule [for Cirrhosis liver] Follow up with: ANA M BARRERA MD [Staff Physician] - 7 Days PRIMARY CARE, [Primary Care Provider] - 3-5 Days ELEN RUBIO MD [Staff Physician] - 7 Days
[2016-08-28] MEDS: ROCEPHIN/NS 2 GM/100 ML 100 ML IV SCH (12:33)
[2016-08-28] MEDS: LOVENOX SUB-Q SCH (12:33)
== END 2016-08-28 17:30 | disposition home health service (06) | DRG 871 ==
LOC: ED 14:05 → CC1 19:05 → 3A 08-25 20:05
PROVIDERS: ADMIT Internal Medicine; ATTEND Internal Medicine
PROC: 4A033R1 Measurement of Arterial Saturation, Peripheral, Percutaneous Approach (ICD-10-PCS; principal; 2016-08-24)
DX: A41.50 Gram-negative sepsis, unspecified (principal); N17.0 Acute kidney failure with tubular necrosis; E10.10 Type 1 diabetes mellitus with ketoacidosis without coma; N17.9 Acute kidney failure, unspecified; E87.1 Hypo-osmolality and hyponatremia; N39.0 Urinary tract infection, site not specified; K74.60 Unspecified cirrhosis of liver; E87.5 Hyperkalemia; I10 Essential (primary) hypertension; D64.9 Anemia, unspecified; H54.42 Blindness, left eye, normal vision right eye; E10.319 Type 1 diabetes mellitus with unspecified diabetic retinopathy without macular edema; D69.6 Thrombocytopenia, unspecified; Z79.4 Long term (current) use of insulin; Z91.14 Patient's other noncompliance with medication regimen
CPT/HCPCS: 36415; 51702; 71010; 74176; 80048; 80053; 80074; 81001; 82010; 82805; 82962; 83036; 83690; 83735; 84100; 84703; 85007; 85025; 87040; 87076; 87086; 87186; 90686; 96361; 96365; 96366; 96368; 96372; 96375; 96376; J0696; J1650; J1815; J1818; J2405; J7030; J7040

== ENCOUNTER 2016-11-13 18:56 | Inpatient (IN) | payer OTHER ==
[2016-11-13] MEDS ORDERED: NACL 0.9% 1000 ML 1,000 ML IV ONE ×3 (19:12→21:16)
[2016-11-13 20:37] LABS: Bacteria,Urine 2+ /HPF (Negative); Bilirubin,Urine NEG (Negative); Blood,Urine SM (Negative); Ketones,Urine NEG (Negative); Leukocyte Esterase,Urine MOD (Negative); Mucus,Urine FEW /HPF; Nitrite,Urine NEG (Negative); Protein,Urine <15 mg/dL mg/dL (Negative); Urobilinogen,Urine < 2.0 mg/dL (<2.0)
--- NOTE | 2016-11-13 20:41 | Emergency Department Report ---
- General Chief complaint: Syncope Stated complaint: AMS Time Seen by Provider: 11/13/16 19:11 Source: patient, old records reviewed (patient is admitted here by me in August 2016 for DKA and urosepsis) Mode of arrival: Stretcher Limitations: No Limitations - History of Present Illness Initial comments: 46-year-old female with a past medical history of insulin-dependent diabetes, hypertension, autoimmune hepatitis, and cirrhosis presents to the hospital complains of generalized weakness and hyperglycemia. Patient was found by neighbors lying on the ground in her yard. Patient states she fell and was too weak to get up. Glucose high upon EMS arrival. Patient admits to not being compliant with her insulin. No reports of nausea, vomiting, diarrhea, melena, hematochezia, chest pain, shortness of breath, headache, or pain. Patient is alert and oriented 3 all she does appear to have generalized weakness.. Severity scale (0 -10): 5 - Related Data Home Medications Medication Instructions Recorded Confirmed Last Taken Cyclobenzaprine [Flexeril] 10 mg PO DAILY 11/13/16 11/13/16 Unknown Furosemide [Lasix] 20 mg PO QDAY 11/13/16 11/13/16 Unknown Spironolactone [Aldactone] 50 mg PO QDAY 11/13/16 11/13/16 Unknown Previous Rx's Medication Instructions Recorded Last Taken Type Insulin NPH Hum/Reg Insulin Hm 18 unit SQ BID 30 Days 08/28/16 Unknown Rx [HumuLIN 70-30 Vial] Insulin Regular, Human [HumuLIN R] 3 units SC ACHS PRN 30 Days 08/28/16 Unknown Rx Allergies Allergy/AdvReac Type Severity Reaction Status Date / Time No Known Allergies Allergy Verified 07/25/16 12:59 ED Review of Systems ROS: Stated complaint: AMS Other details as noted in HPI Comment: All other systems reviewed and negative Other: Constitutional: No fevers chills Eyes: No eye pain visual changes ENT: No ear pain or throat pain Neck: Denies pain Respiratory: Denies cough wheezing shortness of breath Cardiovascular: Denies chest pain, palpitations, syncope GI: Denies abdominal pain, nausea, vomiting, diarrhea : Denies dysuria Musculoskeletal: Denies back pain Skin: Denies rash, lesions, erythema Neurologic: Denies headache, numbness ED Past Medical Hx - Past Medical History Hx Hypertension: Yes Hx Congestive Heart Failure: No Hx Diabetes: Yes Hx Liver Disease: Yes (cirrhosis, autoimmune hepatitis) Hx Asthma: No Hx COPD: No Additional medical history: Anemia. 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 liver bx - Social History Smoking Status: Never Smoker Substance Use Type: None - Medications Home Medications: Home Medications Medication Instructions Recorded Confirmed Last Taken Type Insulin NPH Hum/Reg Insulin Hm 18 unit SQ BID 30 Days 08/28/16 11/13/16 Unknown Rx [HumuLIN 70-30 Vial] Insulin Regular, Human [HumuLIN R] 3 units SC ACHS PRN 30 Days 08/28/16 Unknown Rx Cyclobenzaprine [Flexeril] 10 mg PO DAILY 11/13/16 11/13/16 Unknown History Furosemide [Lasix] 20 mg PO QDAY 11/13/16 11/13/16 Unknown History Spironolactone [Aldactone] 50 mg PO QDAY 11/13/16 11/13/16 Unknown History ED Physical Exam - General Limitations: No Limitations - Other Other exam information: General: No limitations, patient is alert in no acute distress Head exam: Atraumatic, normocephalic Eyes exam: Normal appearance, pupils equal reactive to light, nonicteric sclera ENT: Moist mucous membrane, dry mucous membrane Neck exam: Normal inspection, full range of motion, no meningismus nontender Respiratory exam: Clear to auscultation bilateral, no wheezes, rales, crackles Cardiovascular: Normal rate and rhythm, normal heart sounds Abdomen: Soft, nondistended, and nontender, with normal bowel sounds, no rebound, or guarding Extremity: Full range of motion normal inspection no deformity Back: Normal Inspection, full range of motion, no tenderness Neurologic: Alert, oriented x3, cranial nerves intact, 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 No focal weakness Psychiatric: normal affect, normal mood Skin: Warm, dry, intact ED Course Vital Signs 11/13/16 11/13/16 11/13/16 20:01 20:02 23:46 Temperature 97.9 F Pulse Rate 97 H 91 H Respiratory 12 12 12 Rate Blood Pressure 142/42 122/57 [Left] O2 Sat by Pulse 100 100 99 Oximetry - Reevaluation(s) Reevaluation #1: 11/13/16 21:19 Patient receives insulin bolus, 2 L of normal saline initiated with a liter ordered. Reevaluation #2: 11/14/16 00:06 cbc reviewed ED Medical Decision Making - Lab Data Result diagrams: 11/13/16 21:35 11/13/16 20:12 - EKG Data -: EKG Interpreted by Me (sinus rhythm rate 95 premature atrial complexes) - EKG Data When compared to previous EKG there are: no significant change, previous EKG unavailable - Medical Decision Making Patient has significant hyperglycemia without ketosis in the urine and pt has a normal pH. Serum ketones are not available at this time. Urine shows leukocytosis and given patient's history urosepsis she will be covered. Urine culture ordered and patient received a dose of Rocephin. CBC is still pending since patient requiring repeat attempts secondary to difficult blood draws - Differential Diagnosis DKA, hyperglycemia, infection, medication noncompliance, DC Critical Care Time: No Critical care attestation.: If time is entered above; I have spent that time in minutes in the direct care of this critically ill patient, excluding procedure time. ED Disposition Clinical Impression: Insulin dependent diabetes mellitus, Hyperglycemia, Noncompliance with medication regimen, UTI (urinary tract infection), Autoimmune liver disease, Cirrhosis, Generalized weakness, Thrombocytopenia Disposition: OP ADMITTED IP TO THIS HOSP Is pt being admited?: Yes Condition: Stable Time of Disposition: 21:22 (Dr Noonan, hosp)
[2016-11-13 20:55] LABS: Creatine Kinase MB 1.5 ng/mL (0.0-4.0)
[2016-11-13 20:56] LABS: Alanine Aminotransferase 38 units/L (7-56); Albumin 2.5 g/dL (3.9-5); Albumin/Globulin Ratio 0.4 %; Alkaline Phosphatase 186 units/L (35-129); Anion Gap 18 mmol/L; Bilirubin,Total 1.6 mg/dL (0.1-1.2); Blood Urea Nitrogen 18 mg/dL (7-17); Calcium 9.2 mg/dL (8.4-10.2); Carbon Dioxide 20 mmol/L (22-30); Chloride 99.4 mmol/L (98-107); Creatine Kinase 83 units/L (30-135); Magnesium 2.3 mg/dL (1.7-2.3); Phosphorous 2.5 mg/dL (2.5-4.5); Potassium 4.6 mmol/L (3.6-5.0); Sodium 133 mmol/L (137-145); Total Protein 8.5 g/dL (6.3-8.2)
[2016-11-13 21:16] LABS: Glucose 837 mg/dL (65-100)
[2016-11-13] MEDS ORDERED: ROCEPHIN/NS 1 GM/50 ML 1 GM/50 ML BAG IV ONE (21:18)
[2016-11-13] MEDS ORDERED: XYLOCAINE 1% MPF 5 mL INFILTRATI ONE (21:53)
[2016-11-13] MEDS ORDERED: D50W (25GM) IV PRN (21:54)
[2016-11-13 21:57] LABS: Hematocrit 32.3 % (30.3-42.9); Hemoglobin 10.4 gm/dl (10.1-14.3); Mean Corpuscular HGB Conc 32 % (30-34); Mean Corpuscular Hemoglobin 31 pg (28-32); Mean Corpuscular Volume 95 fl (79-97); Red Blood Count 3.41 M/mm3 (3.65-5.03); Red Cell Distribution Width 15.4 % (13.2-15.2); White Blood Count 6.7 K/mm3 (4.5-11.0)
[2016-11-13] MEDS ORDERED: ZOFRAN IV PRN (21:59)
[2016-11-13] MEDS ORDERED: NovoLIN R 100 UNITS in NACL 0.9% 99 ML IV SCH (22:00)
[2016-11-13 22:02] LABS: Platelet Count 82 K/mm3 (140-440)
[2016-11-13] MEDS ORDERED: TYLENOL PO PRN (22:02)
[2016-11-13] MEDS ORDERED: RESTORIL PO PRN (22:03)
--- NOTE | 2016-11-13 22:17 | History and Physical Report ---
History of Present Illness Date of examination: 11/13/16 Date of admission: 11/13/2016 Chief complaint: Chief complaint is weakness, other complaint is high blood sugar level History of present illness: History of present illness patient is a 46-year-old female who fell in her yard and couldn't get back, and neighbours saw patient on the ground and called EMS. EMS noted that patient's blood sugar was too high to read on the equipment. There was no history of chest pain, no history of fever or chills, no history of shortness of breath nausea or vomiting, she on the admitted to being too weak. 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) Past Surgical History: No surgical history Social history: lives with family Family history: no significant family history Medications and Allergies Allergies Allergy/AdvReac Type Severity Reaction Status Date / Time No Known Allergies Allergy Verified 07/25/16 12:59 Home Medications Medication Instructions Recorded Confirmed Last Taken Type Ciprofloxacin HCl [Ciprofloxacin 500 mg PO Q12H #14 tab 08/28/16 Unknown Rx TAB] Insulin NPH Hum/Reg Insulin Hm 18 unit SQ BID 30 Days 08/28/16 Unknown Rx [HumuLIN 70-30 Vial] Insulin Regular, Human [HumuLIN R] 3 units SC ACHS PRN 30 Days 08/28/16 Unknown Rx Active Meds: Active Medications Acetaminophen (Tylenol) 650 mg PO Q4H PRN PRN Reason: For Pain/Fever/Headache Dextrose (D50w (25gm)) 0 ml IV PRN PRN PRN Reason: Hypoglycemia Heparin Sodium (Porcine) (Heparin) 5,000 unit SUB-Q Q8HR DEONNA Sodium Chloride (Nacl 0.9% 1000 Ml) 1,000 mls @ 999 mls/hr IV BOLUS ONE Stop: 11/13/16 22:16 Insulin Human Regular 100 (units/ Sodium Chloride) 100 mls @ 1 mls/hr IV TITR DEONNA; 1 UNITS/HR PRN Reason: Protocol Ceftriaxone Sodium (Rocephin/Ns 1 Gm/50 Ml) 1 gm in 50 mls @ 100 mls/hr IV Q24HR DEONNA Ondansetron HCl (Zofran) 4 mg IV Q6H PRN PRN Reason: Nausea And Vomiting Temazepam (Restoril) 15 mg PO QHS PRN PRN Reason: Insomnia Review of Systems Constitutional: weakness, no weight gain, no fever, no chills, no sweats, no malaise, no lethargy, no chronic headaches, no poor appetite, no daytime sleepiness, no chronic pain Eyes: bilateral: other (NO BILATERAL EYE SYMPTOMS) Ears, nose, mouth and throat: no ear pain, no ear discharge, no tinnitis, no decreased hearing, no nose pain, no nasal congestion, no nasal discharge, no sinus pressure, no epistaxis, no bleeding gums, no dysphagia, no hoarseness, no sore throat, no swelling in mouth, no voice changes, no post-nasal drip, no headache, no vertigo, no pain front of neck, no neck fullness/pressure, no neck lump Breasts: deferred Cardiovascular: no chest pain, no orthopnea, no palpitations, no rapid/ irregular heart beat, no edema, no syncope, no lightheadedness, no shortness of breath, no dyspnea on exertion, no paroxysmal nocturnal dyspnea, no claudication , no phlebitis, no high blood pressure, no leg edema, no decreased exercise tolerance Respiratory: no cough, no cough with sputum, no excessive sputum, no hemoptysis , no shortness of breath, no dyspnea on exertion, no congestion, no wheezing, no pleurisy, no pain, no pain on inspiration, no snoring, no sleep apnea, no respiratory infections, no home oxygen Gastrointestinal: no abdominal pain, no nausea, no vomiting, no diarrhea, no constipation, no change in bowel habits, no hematemesis, no coffee ground emesis , no melena, no hematochezia, no loss of appetite, no early satiety, no heartburn, no indigestion, no belching, no excessive gas, no jaundice, no dyspepsia/bloating, no early satiety, no lactose intolerance Genitourinary Female: no dyspareunia, no dysmenorrhea, no pelvic pain, no flank pain, no menorrhagia, no dysuria, no urinary frequency, no urgency, no stress incontinence, no post void dribbling, no incomplete emptying, no urge incontinence, no mixed incontinence, no difficulty voiding, no hematuria, no nocturia, no vaginal itching, no vaginal discharge, no vaginal odor, no abnormal vaginal bleeding, no genital sores, no vaginal dryness, no decreased libido, no mood problems, no hot flashes, no prolapse symptoms, no , no difficulties conceiving Rectal: no pain, no incontinence, no bleeding, no itching, no hemorrhoids, no discharge, no flatulence Musculoskeletal: no neck stiffness, no neck pain, no shooting arm pain, no arm numbness/tingling, no low back pain, no shooting leg pain, no leg numbness/ tingling, no morning stiffness, no muscle weakness, no muscle cramps, no myalgias, no atrophy, no frequent falls, no fractures, no loss of height, no prior amputations, no arthritis Integumentary: no rash, no pruritis, no redness, no sores, no wounds, no boils, no growths, no bullae, no lesions, no darkening of skin, no depigmentation, no acne, no dryness, no color changes, no unusual bruising, no brittle nails, no striae, no hirsutism, no foot/leg ulcers, no onychomycosis Neurological: weakness, no head injury, no transient paralysis, no paralysis, no parathesias, no tingling, no seizures, no syncope, no tremors, no ataxia, no headaches, no migraines, no tic, no convulsions, no change in speech, no change in mentation, no confusion, no memory loss, no changes in smell/taste, no balance difficulties, no gait dysfunction, no motor disturbance, no sensory deficit, no double vision, no loss of vision, no hearing difficulties, no burning pain, no paralysis, no spasticity Psychiatric: no anxiety, no memory loss, no change in sleep habits, no sleep disturbances, no insomnia, no hypersomnia, no change in appetite, no paranoia, no depression, no hopelessness, no anhedonia, no anxiety attacks, no difficulties concentrating, no confusion, no sadness/tearfullness, no mood swings Endocrine: no cold intolerance, no heat intolerance, no polyphagia, no excessive thirst, no polydipsia, no polyuria, no nocturia, no excessive sweating , no flushing, no increase in ring/shoe/hat size, no proptosis, no thyroid mass , no palpatations, no high blood sugars, no recent glucocorticoid use, no fatigue Hematologic/Lymphatic: no easy bruising, no easy bleeding, no lymphadenopathy, no lymphedema, no thrombophilia Allergic/Immunologic: no urticaria, no allergic rhinitis, no wheezing, no persistent infections, no anaphylaxis, no angioedema, no gluten intolerance, no seasonal allergies Exam - Constitutional Vitals: Temp Pulse Resp BP Pulse Ox 97.9 F 97 H 12 142/42 100 11/13/16 20:01 11/13/16 20:01 11/13/16 20:02 11/13/16 20:01 11/13/16 20:02 General appearance: Present: no acute distress - EENT Eyes: Present: PERRL, EOM intact ENT: hearing intact - Neck Neck: Present: supple - Respiratory Respiratory effort: normal - Cardiovascular Rhythm: regular Heart Sounds: Present: S1 & S2. Absent: gallop, systolic murmur, diastolic murmur, rub, click - Extremities Extremities: no ischemia Extremity abnormal: edema Peripheral Pulses: within normal limits - Abdominal General gastrointestinal: Present: soft, non-tender, non-distended, hypoactive bowel sounds. Absent: tender Female genitourinary: Present: deferred - Rectal Rectal Exam: deferred - Integumentary Integumentary: Present: clear, warm, dry, normal turgor. Absent: erythema, jaundice, rash, clammy, pale - Musculoskeletal Musculoskeletal: generalized weakness - Psychiatric Psychiatric: appropriate mood/affect Results - Labs CBC & Chem 7: 11/13/16 21:35 11/13/16 20:12 Labs: Laboratory Last Values WBC 6.7 K/mm3 (4.5-11.0) 11/13/16 21:35 RBC 3.41 M/mm3 (3.65-5.03) L 11/13/16 21:35 Hgb 10.4 gm/dl (10.1-14.3) 11/13/16 21:35 Hct 32.3 % (30.3-42.9) 11/13/16 21:35 MCV 95 fl (79-97) 11/13/16 21:35 MCH 31 pg (28-32) 11/13/16 21:35 MCHC 32 % (30-34) 11/13/16 21:35 RDW 15.4 % (13.2-15.2) H 11/13/16 21:35 Plt Count 82 K/mm3 (140-440) L 11/13/16 21:35 Lymph % (Auto) Food Safety Technician 11/13/16 21:35 [place] % (Auto) Food Safety Technician 11/13/16 21:35 Eos % (Auto) Food Safety Technician 11/13/16 21:35 Baso % (Auto) Food Safety Technician 11/13/16 21:35 Lymph # Food Safety Technician 11/13/16 21:35 [place] # Food Safety Technician 11/13/16 21:35 Eos # Food Safety Technician 11/13/16 21:35 Baso # Food Safety Technician 11/13/16 21:35 Seg Neutrophils % Food Safety Technician 11/13/16 21:35 Seg Neutrophils # Food Safety Technician 11/13/16 21:35 VBG pH 7.436 (7.320-7.420) H 11/13/16 20:12 Sodium 133 mmol/L (137-145) L 11/13/16 20:12 Potassium 4.6 mmol/L (3.6-5.0) 11/13/16 20:12 Chloride 99.4 mmol/L (98-107) 11/13/16 20:12 Carbon Dioxide 20 mmol/L (22-30) L 11/13/16 20:12 Anion Gap 18 mmol/L 11/13/16 20:12 BUN 18 mg/dL (7-17) H 11/13/16 20:12 Creatinine 1.0 mg/dL (0.7-1.2) 11/13/16 20:12 Estimated GFR > 60 ml/min 11/13/16 20:12 BUN/Creatinine Ratio 18.00 % 11/13/16 20:12 Glucose 837 mg/dL (65-100) H* 11/13/16 20:12 Calcium 9.2 mg/dL (8.4-10.2) 11/13/16 20:12 Phosphorus 2.5 mg/dL (2.5-4.5) 11/13/16 20:12 Magnesium 2.3 mg/dL (1.7-2.3) 11/13/16 20:12 Total Bilirubin 1.6 mg/dL (0.1-1.2) H 11/13/16 20:12 AST 48 units/L (5-40) H 11/13/16 20:12 ALT 38 units/L (7-56) 11/13/16 20:12 Alkaline Phosphatase 186 units/L (35-129) H 11/13/16 20:12 Ammonia 51.0 umol/L (25-60) 11/13/16 20:12 Total Creatine Kinase 83 units/L (30-135) 11/13/16 20:12 CK-MB (CK-2) 1.5 ng/mL (0.0-4.0) 11/13/16 20:12 CK-MB (CK-2) Rel Index 1.8 (0-4) 11/13/16 20:12 Troponin T < 0.010 ng/mL (0.00-0.029) 11/13/16 20:12 Total Protein 8.5 g/dL (6.3-8.2) H 11/13/16 20:12 Albumin 2.5 g/dL (3.9-5) L 11/13/16 20: Albumin/Globulin Ratio 0.4 % 11/13/16 20:12 Urine Color Yellow (Yellow) 11/13/16 20: Urine Turbidity Clear (Clear) 11/13/16 20: Urine pH 7.0 (5.0-7.0) 11/13/16 20: Ur Specific [place] 1.026 (1.003-1.030) 11/13/16 20: Urine Protein <15 mg/dl mg/dL (Negative) 11/13/16 20: Urine Glucose (UA) >=500 mg/dL (Negative) 11/13/16 20: Urine Ketones Neg mg/dL (Negative) 11/13/16 20:01 Urine Blood Sm (Negative) 11/13/16 20: Urine Nitrite Neg (Negative) 11/13/16 20: Urine Bilirubin Neg (Negative) 11/13/16 20: Urine Urobilinogen < 2.0 mg/dL (<2.0) 11/13/16 20:01 Ur Leukocyte Esterase Mod (Negative) 11/13/16 20:01 Urine WBC (Auto) 16.0 /HPF (0.0-6.0) H 11/13/16 20:01 Urine RBC (Auto) 2.0 /HPF (0.0-6.0) 11/13/16 20: U Epithel Cells (Auto) 2.0 /HPF (0-13.0) 11/13/16 20: Urine Bacteria (Auto) 2+ /HPF (Negative) 11/13/16 20:01 Urine Mucus Few /HPF 11/13/16 20:01 Assessment and Plan - Patient Problems (1) Generalized weakness Current Visit: Yes Status: Acute (2) Hyperglycemia Current Visit: Yes Status: Acute Plan to address problem: She will be placed on observation, and will treated using IV insulin drip protocol with the chemistry of BMP monitored every 2 hours and Accu-Chek checked every hour. Patient will also be on IV Rocephin 1 g daily for treatment of UTI haing had ciprofloxacin treatment with UTI persistent. Patient will be on IV Zofran 4 mg every 6 hours as needed for nausea vomiting, Tylenol by mouth for fever or headache and temazepam 15 mg at bedtime for insomnia. Patient will be given little IV fluid because of use of Lasix tablets at home for edema. Patient's home medication will be reconciled and applied accordingly. (3) UTI (urinary tract infection) Current Visit: Yes Status: Acute Qualifiers: Urinary tract infection type: U Hematuria presence: H Indwelling urinary catheter type: I Encounter type: E
[2016-11-13] MEDS ORDERED: HEPARIN ONE (22:32)
[2016-11-13] MEDS ORDERED: NACL 0.9% 1000 ML 500 ML IV SCH (23:00)
[2016-11-13] MEDS: HEPARIN SUB-Q SCH (23:15)
[2016-11-14 00:15] LABS: Magnesium 2.2 mg/dL (1.7-2.3); Phosphorous 2.3 mg/dL (2.5-4.5)
[2016-11-14 00:16] LABS: BUN/Creatinine Ratio 17.77; Blood Urea Nitrogen 16 mg/dL (7-17); Calcium 8.9 mg/dL (8.4-10.2); Carbon Dioxide 23 mmol/L (22-30); Chloride 101.2 mmol/L (98-107); Potassium 4.1 mmol/L (3.6-5.0); Sodium 137 mmol/L (137-145)
[2016-11-14 00:22] LABS: Anion Gap 17 mmol/L; Glucose 709 mg/dL (65-100)
[2016-11-14 01:49] LABS: Anion Gap 16 mmol/L; BUN/Creatinine Ratio 16.66; Blood Urea Nitrogen 15 mg/dL (7-17); Calcium 8.7 mg/dL (8.4-10.2); Carbon Dioxide 24 mmol/L (22-30); Chloride 104.5 mmol/L (98-107); Sodium 140 mmol/L (137-145)
[2016-11-14 01:57] LABS: Glucose 634 mg/dL (65-100)
[2016-11-14 04:07] LABS: Anion Gap 15 mmol/L; BUN/Creatinine Ratio 16.66; Blood Urea Nitrogen 15 mg/dL (7-17); Calcium 8.5 mg/dL (8.4-10.2); Carbon Dioxide 24 mmol/L (22-30); Chloride 107.9 mmol/L (98-107); Glucose 481 mg/dL (65-100); Potassium 3.7 mmol/L (3.6-5.0); Sodium 143 mmol/L (137-145)
[2016-11-14 05:24] LABS: Anion Gap 16 mmol/L; BUN/Creatinine Ratio 15.55; Blood Urea Nitrogen 14 mg/dL (7-17); Calcium 8.4 mg/dL (8.4-10.2); Carbon Dioxide 23 mmol/L (22-30); Glucose 380 mg/dL (65-100); Potassium 3.7 mmol/L (3.6-5.0); Sodium 143 mmol/L (137-145)
--- NOTE | 2016-11-14 07:47 | Admit Criteria Form ---
Admission Criteria Documentation: DIABETES Clinical Indications for Admission to Inpatient Care (Place 'X' for any and all applicable criteria): Admission is indicated by presence of ALL (if I & II) or ANY ONE (if III or IV) of the following (1)(2)(3)(4): [X]I. Diabetes is uncontrolled as indicated by ANY ONE of the following: [ ]a) Diabetic ketoacidosis as indicated by ALL of the following (8): [ ]i) Hyperglycemia (eg, plasma glucose greater than 200 mg/ dL (11.1 mmol/L)) [ ]ii) Acidosis (eg, arterial pH less than 7.30, serum bicarbonate level less than 15 mEq/L (mmol/L)) [ ]iii) Moderate ketonuria or ketonemia [ ]b) Hyperglycemic hyperosmolar state as indicated by ALL of the following(9)(10): [ ]i) Neurologic dysfunction (eg, stupor, coma, hemiparesis , seizure)(13) [ ]ii) Plasma glucose greater than 600 mg/dL (33.3 mmol/L) [ ]iii) Serum osmolality greater than 320 mOsm/kg (mmol/kg) [X]c) Severe signs or symptoms secondary to hyperglycemia indicated by ANY ONE of the following: [ ]i) Altered mental status(10) [X]ii) Significant hypovolemia or dehydration [ ]iii) Intractable nausea or vomiting [ ]iv) Unexplained fever or severe infection [ ]v) Severe electrolyte abnormality (eg, hypokalemia, hyperkalemia, hypernatremia) [ ]II. Management at other levels of care (Also use Diabetes: Observation Care as appropriate) is not feasible because of ANY ONE of the following: [ ]a) Condition was not adequately corrected with treatment at other levels of care. [ ]b) Treatment at other levels of care is not appropriate because of condition severity (eg, hyperosmolar coma). [X]III. Contraindications and/or Inappropriate clinical situations for Observational Care in patients with Diabetes, when ANY ONE of the following is required: [X]a) Patient require specific diagnostic workup or therapeutic intervention 22 [ ]b) Patient with abnormal vital signs or altered mental status 23 [ ]IV. General contraindications and/or Inappropriate clinical situations for Observational Care in patients with Diabetes, when ANY ONE of the following is required: [ ]a) Prediction of prolongation of LOS based on ANY ONE of the following may be considered as a contraindication for observational care 2, 3, 4, 5, 6, 7, 8, 9, 10, 11 [ ]i) Age > 65 yrs. [ ]ii) Patient arriving by ambulance [ ]iii) Patient with high acuity [ ]iv) Patient requiring vital sign monitoring [ ]v) Patient on IV medication [ ]b) Systolic blood pressures 180mmHg 3,12 [ ]c) Patient with altered mental status including delirium and other alteration of consciousness, (3) [ ]d) Patient whose discharge disposition will be to a detention home or rehabilitation home should not be managed in Emergency Department Observation Unit. CMS rule requires 3 days hospital stay before such placement.3,13 [ ]e) Patient with failure to thrive due to broad array of etiologies 3,16,17 [ ]f) Inability to ambulate 3,14 Extended stay beyond goal length of stay may be needed for(3)(20): [ ]a) Treatment of precipitating causes [ ]b) Development of hypoglycemia [ ]c) Complications of treatment [ ]d) Complications of decompensated diabetes (eg, acute gastric dilatation, persistent metabolic or neurologic derangement) [ ]e) Active Comorbidities [ ]f) Older patients( 65 years or older) The original [employer] content created by [employer] has been revised. The portions of the content which have been revised are identified through the use of italic text or in bold,and [facility] has neither reviewed nor approved the modified material. All other unmodified content is copyright [employer]. Please see references footnoted in the original [employer] [facility] edition 2016 Admission Criteria Met: Yes
[2016-11-14] MEDS ORDERED: ROCEPHIN IV SCH (10:00)
[2016-11-14] MEDS: HEPARIN SUB-Q SCH ×3 (10:36→23:37)
[2016-11-14] MEDS: LASIX PO SCH (10:44)
[2016-11-14] MEDS: ROCEPHIN/NS 1 GM/50 ML 1 GM/50 ML BAG IV SCH (10:45)
[2016-11-14] MEDS: FLEXERIL PO SCH (10:45)
[2016-11-14] MEDS ORDERED: D50W (25GM) IV PRN (10:52)
[2016-11-14] MEDS: NOVOLOG SUB-Q SCH ×3 (12:04→23:38)
[2016-11-14 13:42] LABS: Creatine Kinase MB 1.9 ng/mL (0.0-4.0)
[2016-11-14 13:43] LABS: Creatine Kinase 139 units/L (30-135)
--- NOTE | 2016-11-14 14:49 | Progress Note ---
Assessment and Plan Assessment and plan: Patient is a 46-year-old female with hx of DM, poorly controlled, autoimmune liver disease, Cirrhosis, HTN, who was admitted to the hospital with AMS, secondary to hyperglycemia. Patient had fallen and cardiology but could not get up and denies any syncope she states that she normally has intermittent falls whenever her blood sugars are out of place mostly when he just too low. She is noncompliant with medications. Friends and neighbors saw her fall and called the EMS. Again on admission she was noted to have a blood sugar over 700. Her blood sugars improve it at this time and she'll be transferred out of the ICU to the floors. Social work and also physical therapy have been consulted. Blindness of the patient has been provided to the patient with 20 minutes of bedside education provided by the patient verbalizes understanding. * Hyperosmotic nonketotic hyperglycemia * Urinary tract infection * Hypertension * Autoimmune liver disease with liver cirrhosis * Noncompliance * Chronic Visual disturbance Plan * Transitional patient to long acting insulin, continue supportive care, transferred to medical floor * Education provided to the patient will also consult a power plant operators supervisor * Continue antibiotics, cultures revealed no growth * I recommended an outpatient ophthalmology evaluation for the patient. * PT OT evaluation and treat * DVT and GI prophylaxis * Plan of care discussed with patient in detail patient verbalizes understanding Hospitalist Physical - Constitutional Vitals: Temp Pulse Resp BP Pulse Ox 97.6 F 90 20 123/60 100 11/14/16 14:33 11/14/16 14:33 11/14/16 14:33 11/14/16 14:33 11/14/16 14:33 General appearance: Present: no acute distress Results - Labs CBC & Chem 7: 11/13/16 21:35 11/14/16 04:45 Labs: Laboratory Last Values WBC 6.7 K/mm3 (4.5-11.0) 11/13/16 21:35 RBC 3.41 M/mm3 (3.65-5.03) L 11/13/16 21:35 Hgb 10.4 gm/dl (10.1-14.3) 11/13/16 21:35 Hct 32.3 % (30.3-42.9) 11/13/16 21:35 MCV 95 fl (79-97) 11/13/16 21:35 MCH 31 pg (28-32) 11/13/16 21:35 MCHC 32 % (30-34) 11/13/16 21:35 RDW 15.4 % (13.2-15.2) H 11/13/16 21:35 Plt Count 82 K/mm3 (140-440) L 11/13/16 21:35 Lymph % (Auto) Belt Worker 11/13/16 21:35 [place] % (Auto) Belt Worker 11/13/16 21:35 Eos % (Auto) Belt Worker 11/13/16 21:35 Baso % (Auto) Belt Worker 11/13/16 21:35 Lymph # Belt Worker 11/13/16 21:35 [place] # Belt Worker 11/13/16 21:35 Eos # Belt Worker 11/13/16 21:35 Baso # Belt Worker 11/13/16 21:35 Seg Neutrophils % Belt Worker 11/13/16 21:35 Seg Neutrophils # Belt Worker 11/13/16 21:35 VBG pH 7.436 (7.320-7.420) H 11/13/16 20:12 Sodium 143 mmol/L (137-145) 11/14/16 04:45 Potassium 3.7 mmol/L (3.6-5.0) 11/14/16 04:45 Chloride 108.0 mmol/L (98-107) H 11/14/16 04:45 Carbon Dioxide 23 mmol/L (22-30) 11/14/16 04:45 Anion Gap 16 mmol/L 11/14/16 04:45 BUN 14 mg/dL (7-17) 11/14/16 04:45 Creatinine 0.9 mg/dL (0.7-1.2) 11/14/16 04:45 Estimated GFR > 60 ml/min 11/14/16 04:45 BUN/Creatinine Ratio 15.55 % 11/14/16 04:45 Glucose 380 mg/dL (65-100) H 11/14/16 04:45 POC Glucose 142 (70-105) H 11/14/16 11:54 Calcium 8.4 mg/dL (8.4-10.2) 11/14/16 04:45 Phosphorus 2.3 mg/dL (2.5-4.5) L 11/13/16 23:43 Magnesium 2.2 mg/dL (1.7-2.3) 11/13/16 23:43 Total Bilirubin 1.6 mg/dL (0.1-1.2) H 11/13/16 20:12 AST 48 units/L (5-40) H 11/13/16 20:12 ALT 38 units/L (7-56) 11/13/16 20:12 Alkaline Phosphatase 186 units/L (35-129) H 11/13/16 20:12 Ammonia 51.0 umol/L (25-60) 11/13/16 20:12 Total Creatine Kinase 139 units/L (30-135) H 11/14/16 12:21 CK-MB (CK-2) 1.9 ng/mL (0.0-4.0) 11/14/16 12:21 CK-MB (CK-2) Rel Index 1.3 (0-4) 11/14/16 12:21 Troponin T < 0.010 ng/mL (0.00-0.029) 11/14/16 12:21 Total Protein 8.5 g/dL (6.3-8.2) H 11/13/16 20:12 Albumin 2.5 g/dL (3.9-5) L 11/13/16 20:12 Albumin/Globulin Ratio 0.4 % 11/13/16 20:12 Urine Color Yellow (Yellow) 11/13/16 20:01 Urine Turbidity Clear (Clear) 11/13/16 20:01 Urine pH 7.0 (5.0-7.0) 11/13/16 20:01 Ur Specific [place] 1.026 (1.003-1.030) 11/13/16 20:01 Urine Protein <15 mg/dl mg/dL (Negative) 11/13/16 20:01 Urine Glucose (UA) >=500 mg/dL (Negative) 11/13/16 20:01 Urine Ketones Neg mg/dL (Negative) 11/13/16 20:01 Urine Blood Sm (Negative) 11/13/16 20:01 Urine Nitrite Neg (Negative) 11/13/16 20: Urine Bilirubin Neg (Negative) 11/13/16 20:01 Urine Urobilinogen < 2.0 mg/dL (<2.0) 11/13/16 20:01 Ur Leukocyte Esterase Mod (Negative) 11/13/16 20:01 Urine WBC (Auto) 16.0 /HPF (0.0-6.0) H 11/13/16 20:01 Urine RBC (Auto) 2.0 /HPF (0.0-6.0) 11/13/16 20:01 U Epithel Cells (Auto) 2.0 /HPF (0-13.0) 11/13/16 20:01 Urine Bacteria (Auto) 2+ /HPF (Negative) 11/13/16 20:01 Urine Mucus Few /HPF 11/13/16 20:01
[2016-11-14] MEDS: ALDACTONE PO SCH (17:27)
--- NOTE | 2016-11-14 18:03 | Consultation ---
History of Present Illness Consult date: 11/14/16 Requesting physician: KENN MIN Reason for consult: other (HONK) History of present illness: 46yo admitted after a fall, too weak to get up in her yard, found by neighbors, glucose unregisterable on glucometers. No reports of nausea, vomiting, diarrhea , melena, hematochezia, chest pain, shortness of breath, headache. She required insulin drip but has been weaned off, eating lunch when I saw her, without complaints. Active Medications Acetaminophen (Tylenol) 650 mg PO Q4H PRN PRN Reason: For Pain/Fever/Headache Cyclobenzaprine HCl (Flexeril) 10 mg PO DAILY [facility] Last Admin: 11/14/16 10:45 Dose: 10 mg Dextrose (D50w (25gm)) 0 ml IV PRN PRN PRN Reason: Hypoglycemia Furosemide (Lasix) 20 mg PO QDAY [facility] Last Admin: 11/14/16 10:44 Dose: 20 mg Heparin Sodium (Porcine) (Heparin) 5,000 unit SUB-Q Q8HR [facility] Last Admin: 11/14/16 13:31 Dose: 5,000 unit Insulin Human Regular 100 (units/ Sodium Chloride) 100 mls @ 1 mls/hr IV TITR DEONNA; 1 UNITS/HR PRN Reason: Protocol Last Titration: 11/14/16 11:30 Dose: 0 units/hr, 0 mls/hr Ceftriaxone Sodium (Rocephin/Ns 1 Gm/50 Ml) 1 gm in 50 mls @ 100 mls/hr IV Q24HR [facility] Last Admin: 11/14/16 10:45 Dose: 100 mls/hr Insulin Aspart (Novolog) 0 units SUB-Q ACHS DEONNA PRN Reason: Protocol Last Admin: 11/14/16 17:24 Dose: 1 units Insulin Human Isoph/Insulin Regular (Novolin 70/30) 18 unit SUB-Q BID [facility] Last Admin: 11/14/16 11:30 Dose: 18 unit Insulin Human Regular (Novolin R) 3 units SUB-Q ACHS PRN PRN Reason: Hyperglycemia Ondansetron HCl (Zofran) 4 mg IV Q6H PRN PRN Reason: Nausea And Vomiting Spironolactone (Aldactone) 50 mg PO QDAY [facility] Last Admin: 11/14/16 17:27 Dose: 50 mg Temazepam (Restoril) 15 mg PO QHS PRN PRN Reason: Insomnia Past History Past Medical History: diabetes, hypertension, liver disease, other (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 denies: smoking, alcohol abuse, prescription drug abuse, IV drug use Family history: no significant family history (NO PULM ISSUES REPORTED) Medications and Allergies Allergies Allergy/AdvReac Type Severity Reaction Status Date / Time No Known Allergies Allergy Verified 07/25/16 12:59 Home Medications Medication Instructions Recorded Confirmed Last Taken Type Insulin NPH Hum/Reg Insulin Hm 18 unit SQ BID 30 Days 08/28/16 11/13/16 Unknown Rx [HumuLIN 70-30 Vial] Insulin Regular, Human [HumuLIN R] 3 units SC ACHS PRN 30 Days 08/28/16 Unknown Rx Cyclobenzaprine [Flexeril] 10 mg PO DAILY 11/13/16 11/13/16 Unknown History Furosemide [Lasix] 20 mg PO QDAY 11/13/16 11/13/16 Unknown History Spironolactone [Aldactone] 50 mg PO QDAY 11/13/16 11/13/16 Unknown History Active Meds: Active Medications Acetaminophen (Tylenol) 650 mg PO Q4H PRN PRN Reason: For Pain/Fever/Headache Cyclobenzaprine HCl (Flexeril) 10 mg PO DAILY [facility] Last Admin: 11/14/16 10:45 Dose: 10 mg Dextrose (D50w (25gm)) 0 ml IV PRN PRN PRN Reason: Hypoglycemia Furosemide (Lasix) 20 mg PO QDAY [facility] Last Admin: 11/14/16 10:44 Dose: 20 mg Heparin Sodium (Porcine) (Heparin) 5,000 unit SUB-Q Q8HR [facility] Last Admin: 11/14/16 13:31 Dose: 5,000 unit Insulin Human Regular 100 (units/ Sodium Chloride) 100 mls @ 1 mls/hr IV TITR DEONNA; 1 UNITS/HR PRN Reason: Protocol Last Titration: 11/14/16 11:30 Dose: 0 units/hr, 0 mls/hr Ceftriaxone Sodium (Rocephin/Ns 1 Gm/50 Ml) 1 gm in 50 mls @ 100 mls/hr IV Q24HR [facility] Last Admin: 11/14/16 10:45 Dose: 100 mls/hr Insulin Aspart (Novolog) 0 units SUB-Q ACHS [facility] PRN Reason: Protocol Last Admin: 11/14/16 17:24 Dose: 1 units Insulin Human Isoph/Insulin Regular (Novolin 70/30) 18 unit SUB-Q BID [facility] Last Admin: 11/14/16 11:30 Dose: 18 unit Insulin Human Regular (Novolin R) 3 units SUB-Q ACHS PRN PRN Reason: Hyperglycemia Ondansetron HCl (Zofran) 4 mg IV Q6H PRN PRN Reason: Nausea And Vomiting Spironolactone (Aldactone) 50 mg PO QDAY [facility] Last Admin: 11/14/16 17:27 Dose: 50 mg Temazepam (Restoril) 15 mg PO QHS PRN PRN Reason: Insomnia Review of Systems All systems: negative Physical Examination Vital signs: Vital Signs Temp Pulse Resp BP Pulse Ox 97.9 F 97 H 12 142/42 100 11/13/16 20:01 11/13/16 20:01 11/13/16 20:01 11/13/16 20:01 11/13/16 20:01 Vital Signs - 24 hr 11/13/16 11/13/16 11/13/16 20:01 20:02 23:46 Temperature 97.9 F Pulse Rate 97 H 91 H Pulse Rate [ From Monitor] Pulse Rate [ Right Dorsalis Pedis] Respiratory 12 12 12 Rate Blood Pressure Blood Pressure 142/42 122/57 [Left] Blood Pressure [Right Arm] O2 Sat by Pulse 100 100 99 Oximetry 11/14/16 11/14/16 11/14/16 00:40 00:51 01:01 Temperature Pulse Rate 87 88 88 Pulse Rate [ From Monitor] Pulse Rate [ Right Dorsalis Pedis] Respiratory 13 13 14 Rate Blood Pressure Blood Pressure [Left] Blood Pressure [Right Arm] O2 Sat by Pulse 100 100 Oximetry 11/14/16 11/14/16 11/14/16 01:11 01:21 01:31 Temperature Pulse Rate 87 86 86 Pulse Rate [ From Monitor] Pulse Rate [ Right Dorsalis Pedis] Respiratory 16 18 14 Rate Blood Pressure 137/82 137/82 137/82 Blood Pressure [Left] Blood Pressure [Right Arm] O2 Sat by Pulse 100 100 100 Oximetry 11/14/16 11/14/16 11/14/16 01:41 01:51 02:01 Temperature Pulse Rate 87 86 86 Pulse Rate [ From Monitor] Pulse Rate [ Right Dorsalis Pedis] Respiratory 12 17 15 Rate Blood Pressure 137/82 137/82 114/68 Blood Pressure [Left] Blood Pressure [Right Arm] O2 Sat by Pulse 100 100 100 Oximetry 11/14/16 11/14/16 11/14/16 02:11 02:21 02:29 Temperature 97.7 F Pulse Rate 85 87 Pulse Rate [ From Monitor] Pulse Rate [ Right Dorsalis Pedis] Respiratory 17 13 Rate Blood Pressure 114/68 114/68 Blood Pressure [Left] Blood Pressure [Right Arm] O2 Sat by Pulse 100 100 Oximetry 11/14/16 11/14/16 11/14/16 02:31 02:41 02:51 Temperature Pulse Rate 87 87 83 Pulse Rate [ From Monitor] Pulse Rate [ Right Dorsalis Pedis] Respiratory 13 16 11 L Rate Blood Pressure 114/68 114/68 114/68 Blood Pressure [Left] Blood Pressure [Right Arm] O2 Sat by Pulse 100 100 100 Oximetry 11/14/16 11/14/16 11/14/16 03:00 03:11 03:21 Temperature Pulse Rate 85 84 81 Pulse Rate [ From Monitor] Pulse Rate [ Right Dorsalis Pedis] Respiratory 15 14 12 Rate Blood Pressure 134/68 134/68 134/68 Blood Pressure [Left] Blood Pressure [Right Arm] O2 Sat by Pulse 100 100 100 Oximetry 11/14/16 11/14/16 11/14/16 03:32 03:41 03:51 Temperature Pulse Rate 83 85 87 Pulse Rate [ From Monitor] Pulse Rate [ Right Dorsalis Pedis] Respiratory 15 14 12 Rate Blood Pressure 134/68 134/68 Blood Pressure [Left] Blood Pressure [Right Arm] O2 Sat by Pulse 100 100 100 Oximetry 11/14/16 11/14/16 11/14/16 04:00 04:11 04:21 Temperature Pulse Rate 86 88 86 Pulse Rate [ From Monitor] Pulse Rate [ Right Dorsalis Pedis] Respiratory 13 12 13 Rate Blood Pressure 116/49 116/49 116/49 Blood Pressure [Left] Blood Pressure [Right Arm] O2 Sat by Pulse 100 100 100 Oximetry 11/14/16 11/14/16 11/14/16 04:31 04:41 04:51 Temperature Pulse Rate 87 86 85 Pulse Rate [ From Monitor] Pulse Rate [ Right Dorsalis Pedis] Respiratory 25 H 14 12 Rate Blood Pressure 116/49 116/49 116/49 Blood Pressure [Left] Blood Pressure [Right Arm] O2 Sat by Pulse 100 100 100 Oximetry 11/14/16 11/14/16 11/14/16 05:01 05:11 05:21 Temperature Pulse Rate 85 85 83 Pulse Rate [ From Monitor] Pulse Rate [ Right Dorsalis Pedis] Respiratory 17 15 14 Rate Blood Pressure 118/53 118/53 118/53 Blood Pressure [Left] Blood Pressure [Right Arm] O2 Sat by Pulse 100 100 100 Oximetry 11/14/16 11/14/16 11/14/16 05:30 05:41 05:51 Temperature Pulse Rate 85 85 82 Pulse Rate [ From Monitor] Pulse Rate [ Right Dorsalis Pedis] Respiratory 15 15 13 Rate Blood Pressure 118/53 118/53 118/53 Blood Pressure [Left] Blood Pressure [Right Arm] O2 Sat by Pulse 100 100 100 Oximetry 11/14/16 11/14/16 11/14/16 06:00 06:11 06:21 Temperature Pulse Rate 81 80 79 Pulse Rate [ From Monitor] Pulse Rate [ Right Dorsalis Pedis] Respiratory 14 13 12 Rate Blood Pressure 112/54 112/54 112/54 Blood Pressure [Left] Blood Pressure [Right Arm] O2 Sat by Pulse 100 100 100 Oximetry 11/14/16 11/14/16 11/14/16 06:31 06:41 06:51 Temperature Pulse Rate 83 79 83 Pulse Rate [ From Monitor] Pulse Rate [ Right Dorsalis Pedis] Respiratory 13 13 12 Rate Blood Pressure 112/54 112/54 112/54 Blood Pressure [Left] Blood Pressure [Right Arm] O2 Sat by Pulse 100 100 100 Oximetry 11/14/16 11/14/16 11/14/16 07:01 07:11 07:21 Temperature Pulse Rate 84 83 83 Pulse Rate [ From Monitor] Pulse Rate [ Right Dorsalis Pedis] Respiratory 17 15 14 Rate Blood Pressure 112/54 131/70 131/70 Blood Pressure [Left] Blood Pressure [Right Arm] O2 Sat by Pulse 100 100 100 Oximetry 11/14/16 11/14/16 11/14/16 07:31 07:41 07:51 Temperature Pulse Rate 85 85 85 Pulse Rate [ From Monitor] Pulse Rate [ Right Dorsalis Pedis] Respiratory 15 15 16 Rate Blood Pressure 131/70 131/70 131/70 Blood Pressure [Left] Blood Pressure [Right Arm] O2 Sat by Pulse 100 100 100 Oximetry 11/14/16 11/14/16 11/14/16 08:00 08:01 08:11 Temperature 97.4 F L Pulse Rate 85 86 Pulse Rate [ From Monitor] Pulse Rate [ Right Dorsalis Pedis] Respiratory 10 L 15 Rate Blood Pressure 122/61 122/61 Blood Pressure [Left] Blood Pressure [Right Arm] O2 Sat by Pulse 100 100 Oximetry 11/14/16 11/14/16 11/14/16 08:21 08:31 08:41 Temperature Pulse Rate 85 84 83 Pulse Rate [ From Monitor] Pulse Rate [ Right Dorsalis Pedis] Respiratory 12 15 13 Rate Blood Pressure 122/61 122/61 122/61 Blood Pressure [Left] Blood Pressure [Right Arm] O2 Sat by Pulse 100 100 100 Oximetry 11/14/16 11/14/16 11/14/16 08:51 09:00 09:11 Temperature Pulse Rate 85 84 85 Pulse Rate [ 85 From Monitor] Pulse Rate [ Right Dorsalis Pedis] Respiratory 14 15 14 Rate Blood Pressure 122/61 115/62 115/62 Blood Pressure [Left] Blood Pressure [Right Arm] O2 Sat by Pulse 100 100 100 Oximetry 11/14/16 11/14/16 11/14/16 09:21 09:31 09:41 Temperature Pulse Rate 85 85 Pulse Rate [ From Monitor] Pulse Rate [ Right Dorsalis Pedis] Respiratory Rate Blood Pressure 115/62 115/62 115/62 Blood Pressure [Left] Blood Pressure [Right Arm] O2 Sat by Pulse 100 100 100 Oximetry 11/14/16 11/14/16 11/14/16 09:51 10:00 10:11 Temperature Pulse Rate 84 86 86 Pulse Rate [ From Monitor] Pulse Rate [ Right Dorsalis Pedis] Respiratory 15 15 15 Rate Blood Pressure 115/62 116/72 116/72 Blood Pressure [Left] Blood Pressure [Right Arm] O2 Sat by Pulse 100 100 100 Oximetry 11/14/16 11/14/16 11/14/16 10:21 10:31 10:41 Temperature Pulse Rate 86 84 86 Pulse Rate [ From Monitor] Pulse Rate [ Right Dorsalis Pedis] Respiratory 13 14 13 Rate Blood Pressure 116/72 116/72 116/72 Blood Pressure [Left] Blood Pressure [Right Arm] O2 Sat by Pulse 100 100 100 Oximetry 11/14/16 11/14/16 11/14/16 10:51 11:00 11:11 Temperature Pulse Rate 86 85 87 Pulse Rate [ From Monitor] Pulse Rate [ Right Dorsalis Pedis] Respiratory 15 12 15 Rate Blood Pressure 116/72 136/77 136/77 Blood Pressure [Left] Blood Pressure [Right Arm] O2 Sat by Pulse 99 100 100 Oximetry 11/14/16 11/14/16 11/14/16 11:21 11:31 11:41 Temperature Pulse Rate 86 87 86 Pulse Rate [ From Monitor] Pulse Rate [ Right Dorsalis Pedis] Respiratory 13 9 L 12 Rate Blood Pressure 136/77 136/77 136/77 Blood Pressure [Left] Blood Pressure [Right Arm] O2 Sat by Pulse 100 100 100 Oximetry 11/14/16 11/14/16 11/14/16 11:51 12:00 12:01 Temperature 97.5 F L Pulse Rate 86 90 Pulse Rate [ 84 From Monitor] Pulse Rate [ Right Dorsalis Pedis] Respiratory 14 16 17 Rate Blood Pressure 136/77 107/38 Blood Pressure [Left] Blood Pressure [Right Arm] O2 Sat by Pulse 100 98 100 Oximetry 11/14/16 11/14/16 11/14/16 12:11 12:20 12:31 Temperature Pulse Rate 88 89 91 H Pulse Rate [ From Monitor] Pulse Rate [ Right Dorsalis Pedis] Respiratory 11 L 14 16 Rate Blood Pressure 107/38 122/61 107/38 Blood Pressure [Left] Blood Pressure [Right Arm] O2 Sat by Pulse 100 100 100 Oximetry 11/14/16 11/14/16 11/14/16 12:41 12:51 13:00 Temperature Pulse Rate 88 87 87 Pulse Rate [ From Monitor] Pulse Rate [ Right Dorsalis Pedis] Respiratory 12 12 13 Rate Blood Pressure 107/38 107/38 113/66 Blood Pressure [Left] Blood Pressure [Right Arm] O2 Sat by Pulse 100 100 100 Oximetry 11/14/16 11/14/16 11/14/16 13:11 13:21 13:31 Temperature Pulse Rate 86 91 H 89 Pulse Rate [ From Monitor] Pulse Rate [ Right Dorsalis Pedis] Respiratory 12 9 L 13 Rate Blood Pressure 113/66 113/66 113/66 Blood Pressure [Left] Blood Pressure [Right Arm] O2 Sat by Pulse 100 100 100 Oximetry 11/14/16 11/14/16 11/14/16 13:41 13:51 14:00 Temperature Pulse Rate 88 86 86 Pulse Rate [ From Monitor] Pulse Rate [ Right Dorsalis Pedis] Respiratory 13 13 13 Rate Blood Pressure 113/66 113/66 108/69 Blood Pressure [Left] Blood Pressure [Right Arm] O2 Sat by Pulse 100 100 100 Oximetry 11/14/16 11/14/16 11/14/16 14:33 15:00 17:27 Temperature 97.6 F 97.4 F L Pulse Rate 90 Pulse Rate [ 90 From Monitor] Pulse Rate [ 90 Right Dorsalis Pedis] Respiratory 20 20 Rate Blood Pressure 120/86 Blood Pressure [Left] Blood Pressure 123/60 123/60 [Right Arm] O2 Sat by Pulse 100 100 Oximetry General appearance: no acute distress, alert Eyes: non-icteric ENT: oropharynx moist Neck: supple Effort: normal Ascultation: Bilateral: clear Cardiovascular: regular rate and rhythm (no mrg) Gastrointestinal: normoactive bowel sounds, soft, non-tender, non-distended Integumentary: normal Extremities: no cyanosis, no edema, pink and warm Musculoskeletal: no deformities normal mental status, non-focal exam, pupils equal and round, CN II-XII normal mood appropriate, affect normal Results - Laboratory Findings CBC and BMP: 11/13/16 21:35 11/14/16 04:45 Abnormal lab findings: Abnormal Labs 11/13/16 11/13/16 11/14/16 23:43 23:43 00:57 Chloride Glucose 709 H* POC Glucose > 500 H Phosphorus 2.3 L Total Creatine Kinase 11/14/16 11/14/16 11/14/16 01:20 02:02 03:02 Chloride Glucose 634 H* POC Glucose > 500 H > 500 H Phosphorus Total Creatine Kinase 11/14/16 11/14/16 11/14/16 03:29 04:32 04:45 Chloride 107.9 H 108.0 H Glucose 481 H 380 H POC Glucose 412 H Phosphorus Total Creatine Kinase 11/14/16 11/14/16 11/14/16 05:33 06:28 08:02 Chloride Glucose POC Glucose 365 H 351 H 257 H Phosphorus Total Creatine Kinase 11/14/16 11/14/16 11/14/16 09:13 09:59 11:11 Chloride Glucose POC Glucose 191 H 154 H 127 H Phosphorus Total Creatine Kinase 11/14/16 11/14/16 11/14/16 11:54 12:21 16:31 Chloride Glucose POC Glucose 142 H 188 H Phosphorus Total Creatine Kinase 139 H Assessment and Plan Imp: 1. Hyperosmolar non-ketotic state, resolved 2. Fall/weakness 2/2 #1 + volume depletion 3. Cirrhosis/thrombocytopenia 4. UTI Rec: 1. ABX per primary 2. Changed to subq insulin 3. Advance diet as able 4. Needs diabetes education 5. Okay to resume home diuretics 6. Transfer to floor; will sign off once leaves ICU Plan of care reviewed w/ patient, she understands/agrees; all questions answered
[2016-11-14 19:34] LABS: Creatine Kinase MB 1.5 ng/mL (0.0-4.0)
[2016-11-14 19:35] LABS: Creatine Kinase 93 units/L (30-135)
[2016-11-15] MEDS: HEPARIN SUB-Q SCH (05:15)
[2016-11-15 05:36] LABS: Hematocrit 29.5 % (30.3-42.9); Hemoglobin 9.8 gm/dl (10.1-14.3); Mean Corpuscular HGB Conc 33 % (30-34); Mean Corpuscular Hemoglobin 30 pg (28-32); Mean Corpuscular Volume 91 fl (79-97); Red Blood Count 3.24 M/mm3 (3.65-5.03); Red Cell Distribution Width 15.4 % (13.2-15.2); White Blood Count 5.6 K/mm3 (4.5-11.0)
[2016-11-15 05:45] LABS: Platelet Count 90 K/mm3 (140-440)
[2016-11-15 05:49] LABS: Anion Gap 13 mmol/L; BUN/Creatinine Ratio 17.77; Blood Urea Nitrogen 16 mg/dL (7-17); Calcium 8.3 mg/dL (8.4-10.2); Carbon Dioxide 24 mmol/L (22-30); Chloride 107.7 mmol/L (98-107); Glucose 286 mg/dL (65-100); Potassium 4.5 mmol/L (3.6-5.0); Sodium 140 mmol/L (137-145)
--- NOTE | 2016-11-15 07:58 | Discharge Summary ---
Providers - Providers Date of Admission: 11/13/16 21:43 Date of discharge: 11/15/16 Attending physician: KENN MIN MD 11/13/16 22:59 Consult to Physician [CONS] Urgent Consulting Provider: KIN GRIJALVA Reason For Exam: icu admit insulin drip Place consult to:: no Notified:: no 11/14/16 11:14 Physical Therapy Evaluation and Treat [CONS] Routine Comment: Reason For Exam: debility Primary care physician: [facility] Hospitalization Reason for admission: Syncope Condition: Stable Hospital course: Patient is a 46-year-old female with hx of DM, poorly controlled, autoimmune liver disease, Cirrhosis, HTN, who was admitted to the hospital with AMS, secondary to hyperglycemia. Patient had fallen and cardiology but could not get up and denies any syncope she states that she normally has intermittent falls whenever her blood sugars are out of place mostly when he just too low. She is noncompliant with medications. Friends and neighbors saw her fall and called the EMS. Again on admission she was noted to have a blood sugar over 700. Her blood sugars improve it at this time and she'll be transferred out of the ICU to the floors. Social work and also physical therapy have been consulted. Blindness of the patient has been provided to the patient with 20 minutes of bedside education provided by the patient verbalizes understanding. patient was treated with Insulin drip and converted to Long acting insulin with adjustment in dose. Family was present and stated they have tried to have patient move in with them but she refuses. I did stress to the patient the importance of support considering the she's had this episode fall times in the last few months. The patient compresses that she has had it twice this year. Blood sugars improved. She is clinically stable for discharge and recommended an outpatient evaluation by canceling machine operator the patient verbalized understanding of this. I also added lisinopril to her medications. Recommended a statin therapy if okay with her primary care physician considering her autoimmune liver disease disorder. Buttock education provided compliance with medication discussed in detail * Hyperosmotic nonketotic hyperglycemia * Urinary tract infection * Hypertension * Autoimmune liver disease with liver cirrhosis * Noncompliance * Chronic Visual disturbance Disposition: DISCHARGED TO HOME OR SELFCARE Time spent for discharge: 35 MINS Core Measure Documentation - Palliative Care Palliative Care/ Comfort Measures: Not Applicable - Core Measures Any of the following diagnoses?: none - VTE Discharge Requirements Deep Vein Thrombosis/Pulmonary Embolism Present on Admission: No Exam - Physical Exam Narrative exam: VITAL SIGNS: Reviewed. GENERAL: The patient appeared well nourished and normally developed. Vital signs as documented. HEAD: No signs of head trauma. EYES: Pupils are equal. Extraocular motions intact. EARS: Hearing grossly intact. MOUTH: Oropharynx is normal. NECK: No adenopathy, no JVD. CHEST: Chest with clear breath sounds bilaterally. No wheezes, rales, or rhonchi. CARDIAC: Regular rate and rhythm. S1 and S2, without murmurs, gallops, or rubs. VASCULAR: No Edema. Peripheral pulses normal and equal in all extremities. ABDOMEN: Soft, without detectable tenderness. No sign of distention. No rebound or guarding, and no masses palpated. Bowel Sounds normal. MUSCULOSKELETAL: Good range of motion of all major joints. Extremities without clubbing, cyanosis or edema. NEUROLOGIC EXAM: Alert and oriented x 3. No focal sensory or strength deficits. Speech normal. Follows commands. PSYCHIATRIC: Mood normal. SKIN: No rash or lesions. - Constitutional Vitals: Temp Pulse Resp BP Pulse Ox 98.2 F 91 H 18 119/67 97 11/14/16 23:15 11/14/16 23:15 11/14/16 23:15 11/14/16 23:15 11/14/16 23:15 Plan Activity: advance as tolerated, fall precautions Diet: diabetic Special Instructions: record blood sugar diary Additional Instructions: Must monitor diet, and blood glucose. Should follow with PCP for repeat renal function DUE to initiation of lisinopril Follow up with: PRIMARY CARE, [Primary Care Provider] - 7 Days Prescriptions: Ciprofloxacin HCl [Ciprofloxacin TAB] 500 mg PO Q12H #10 tab Insulin NPH Hum/Reg Insulin Hm [HumuLIN 70-30 Vial] 20 unit SQ BID 30 Days Insulin Regular, Human [HumuLIN R] 5 units SC ACHS PRN 30 Days PRN Reason: Hyperglycemia Lisinopril [Zestril TAB] 2.5 mg PO QDAY #30 tab
[2016-11-15] MEDS: NOVOLOG SUB-Q SCH ×2 (08:06→11:47)
[2016-11-15 08:37] VITALS: BP 119/59
[2016-11-15] MEDS: ALDACTONE PO SCH (09:18)
[2016-11-15] MEDS: FLEXERIL PO SCH (09:18)
[2016-11-15] MEDS: LASIX PO SCH (09:18)
[2016-11-15] MEDS: ROCEPHIN/NS 1 GM/50 ML 1 GM/50 ML BAG IV SCH (09:19)
== END 2016-11-15 13:30 | disposition home or self-care (01) | DRG 638 ==
LOC: ED 18:56 → 4A 21:43 → OBSVTOIN 21:45 → CC1 23:18 → 3A 11-14 14:22
PROVIDERS: ADMIT Internal Medicine; ATTEND Internal Medicine
DX: E11.00 Type 2 diabetes mellitus with hyperosmolarity without nonketotic hyperglycemic-hyperosmolar coma (NKHHC) (principal); B19.9 Unspecified viral hepatitis without hepatic coma; N39.0 Urinary tract infection, site not specified; I10 Essential (primary) hypertension; K74.60 Unspecified cirrhosis of liver; H54.42 Blindness, left eye, normal vision right eye; D69.6 Thrombocytopenia, unspecified; E86.9 Volume depletion, unspecified; K76.9 Liver disease, unspecified; Z79.4 Long term (current) use of insulin; Z91.14 Patient's other noncompliance with medication regimen
CPT/HCPCS: 36415; 51701; 80048; 80053; 81001; 82010; 82140; 82550; 82553; 82805; 82962; 83735; 84100; 84484; 85025; 85027; 87086; 93005; 93010; 96361; 96365; 96375; J0696; J1644; J1815; J7030

== ENCOUNTER 2016-12-04 21:00 | Emergency (ER) | payer OTHER ==
[2016-12-04 21:52] VITALS: BP 175/91
[2016-12-04 22:21] LABS: Basophils % (Auto) 0.6 % (0.0-1.8); Hematocrit 32.5 % (30.3-42.9); Hemoglobin 11.1 gm/dl (10.1-14.3); Mean Corpuscular HGB Conc 34 % (30-34); Mean Corpuscular Hemoglobin 31 pg (28-32); Mean Corpuscular Volume 91 fl (79-97); Red Blood Count 3.58 M/mm3 (3.65-5.03); Red Cell Distribution Width 16.9 % (13.2-15.2); White Blood Count 7.1 K/mm3 (4.5-11.0)
[2016-12-04 22:28] LABS: Platelet Count 91 K/mm3 (140-440)
[2016-12-04 22:31] LABS: INR 1.06 (0.87-1.13)
[2016-12-04 22:47] LABS: Albumin 2.6 g/dL (3.9-5); Albumin/Globulin Ratio 0.5 %; Alkaline Phosphatase 172 units/L (35-129); BUN/Creatinine Ratio 17.77; Bilirubin,Total 1.5 mg/dL (0.1-1.2); Blood Urea Nitrogen 16 mg/dL (7-17); Carbon Dioxide 19 mmol/L (22-30); Chloride 98.3 mmol/L (98-107); Glucose 412 mg/dL (65-100); Magnesium 1.8 mg/dL (1.7-2.3); Sodium 133 mmol/L (137-145); Total Protein 7.8 g/dL (6.3-8.2)
[2016-12-04 23:19] LABS: Alanine Aminotransferase 43 units/L (7-56)
[2016-12-04 23:21] LABS: Anion Gap 20 mmol/L; Potassium 4.6 mmol/L (3.6-5.0)
--- NOTE | 2016-12-08 18:43 | ED Elopement Review ---
ED Pt Elopement review - Results review Lab results: Laboratory Tests 12/04/16 12/04/16 12/04/16 22:03 22:03 22:03 WBC 7.1 RBC 3.58 L Hgb 11.1 Hct 32.5 MCV 91 MCH 31 MCHC 34 RDW 16.9 H Plt Count 91 L Lymph % (Auto) 13.3 L [place] % (Auto) 6.7 Eos % (Auto) 3.0 Baso % (Auto) 0.6 Lymph # 0.9 L [place] # 0.5 Eos # 0.2 Baso # 0.0 Seg Neutrophils % 76.4 H Seg Neutrophils # 5.4 PT 13.7 INR 1.06 VBG pH Potassium 4.6 Carbon Dioxide 19 L Anion Gap 20 BUN 16 Creatinine 0.9 Estimated GFR > 60 BUN/Creatinine Ratio 17.77 Glucose 412 H Lactic Acid Calcium 9.0 Magnesium 1.8 Total Bilirubin 1.5 H AST 61 H ALT 43 Alkaline Phosphatase 172 H Troponin T 0.010 NT-Pro-B Natriuret Pep 47.55 Total Protein 7.8 Albumin 2.6 L Albumin/Globulin Ratio 0.5 HCG, Quant 12/04/16 12/04/16 12/04/16 22:03 22:03 22:03 WBC RBC Hgb Hct MCV MCH MCHC RDW Plt Count Lymph % (Auto) [place] % (Auto) Eos % (Auto) Baso % (Auto) Lymph # [place] # Eos # Baso # Seg Neutrophils % Seg Neutrophils # PT INR VBG pH 7.491 H Potassium Carbon Dioxide Anion Gap BUN Creatinine Estimated GFR BUN/Creatinine Ratio Glucose Lactic Acid 1.7 Calcium Magnesium Total Bilirubin AST ALT Alkaline Phosphatase Troponin T NT-Pro-B Natriuret Pep Total Protein Albumin Albumin/Globulin Ratio HCG, Quant < 2 - Call Back decision Pt Call Back Decision: Pt to F/U with PMD
== END 2016-12-05 00:03 | disposition left against medical advice (07) ==
LOC: ED 21:00
DX: R19.00 Intra-abdominal and pelvic swelling, mass and lump, unspecified site (principal); R10.84 Generalized abdominal pain; E11.9 Type 2 diabetes mellitus without complications; I10 Essential (primary) hypertension; Z53.21 Procedure and treatment not carried out due to patient leaving prior to being seen by health care provider
CPT/HCPCS: 36415; 80053; 82010; 82140; 82805; 83735; 83880; 84484; 84702; 85025; 85610

== ENCOUNTER 2016-12-11 18:19 | Inpatient (IN) | payer OTHER ==
--- NOTE | 2016-12-11 19:29 | Emergency Department Report ---
ED Altered Mental Status HPI - General Chief Complaint: Altered Mental Status Stated Complaint: AMS Time Seen by Provider: 12/11/16 19:04 Source: patient, EMS, RN notes reviewed Mode of arrival: Stretcher Limitations: Altered Mental Status - History of Present Illness Initial Comments: 46-year-old female presents to the emergency department via EMS for evaluation of altered mental status. Per report, the patient has been altered since approximate 9 AM this morning. EMS reports that the patient responds to verbal stimuli but will not follow commands. Further history unable to be obtained from patient due to her altered mental status. MD Complaint: altered mental status, decreased responsiveness -: This morning Time: 09:00 Severity: severe Consistency of Symptoms: constant Context: liver disease - Related Data Home Medications Medication Instructions Recorded Confirmed Last Taken Cyclobenzaprine [Flexeril 10 MG 10 mg PO DAILY 11/13/16 11/13/16 Unknown TAB] Furosemide [Lasix TAB] 20 mg PO QDAY 11/13/16 11/13/16 Unknown Spironolactone [Aldactone] 50 mg PO QDAY 11/13/16 11/13/16 Unknown Previous Rx's Medication Instructions Recorded Last Taken Type Ciprofloxacin HCl [Ciprofloxacin 500 mg PO Q12H #10 tab 11/15/16 Unknown Rx TAB] Insulin NPH Hum/Reg Insulin Hm 20 unit SQ BID 30 Days 11/15/16 Unknown Rx [HumuLIN 70-30 Vial] Insulin Regular, Human [HumuLIN R] 5 units SC ACHS PRN 30 Days 11/15/16 Unknown Rx Lisinopril [Zestril TAB] 2.5 mg PO QDAY #30 tab 11/15/16 Unknown Rx Allergies Allergy/AdvReac Type Severity Reaction Status Date / Time No Known Allergies Allergy Verified 07/25/16 12:59 ED Review of Systems ROS: Stated complaint: AMS Other details as noted in HPI Comment: Unobtainable due to pts medical conditions ED Past Medical Hx - Past Medical History Previous Medical History?: Yes Hx Hypertension: Yes Hx Congestive Heart Failure: No Hx Diabetes: Yes Hx Liver Disease: Yes (cirrhosis, autoimmune hepatitis) Hx Asthma: No Hx COPD: No Additional medical history: Anemia. 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 liver bx - Family History Family history: no significant - Social History Smoking Status: Unknown if ever smoked Substance Use Type: None - Medications Home Medications: Home Medications Medication Instructions Recorded Confirmed Last Taken Type Cyclobenzaprine [Flexeril 10 MG 10 mg PO DAILY 11/13/16 11/13/16 Unknown History TAB] Furosemide [Lasix TAB] 20 mg PO QDAY 11/13/16 11/13/16 Unknown History Spironolactone [Aldactone] 50 mg PO QDAY 11/13/16 11/13/16 Unknown History Ciprofloxacin HCl [Ciprofloxacin 500 mg PO Q12H #10 tab 11/15/16 Unknown Rx TAB] Insulin NPH Hum/Reg Insulin Hm 20 unit SQ BID 30 Days 11/15/16 Unknown Rx [HumuLIN 70-30 Vial] Insulin Regular, Human [HumuLIN R] 5 units SC ACHS PRN 30 Days 11/15/16 Unknown Rx Lisinopril [Zestril TAB] 2.5 mg PO QDAY #30 tab 11/15/16 Unknown Rx ED Physical Exam - General Limitations: Altered Mental Status General appearance: lethargic - Head Head exam: Present: atraumatic, normocephalic - Eye Eye exam: Present: EOMI. Absent: scleral icterus, conjunctival injection - ENT ENT exam: Present: normal exam, normal orophraynx, mucous membranes moist - Neck Neck exam: Present: normal inspection, full ROM. Absent: tenderness - Respiratory Respiratory exam: Present: normal lung sounds bilaterally. Absent: respiratory distress - Cardiovascular Cardiovascular Exam: Present: regular rate, normal rhythm, normal heart sounds - GI/Abdominal GI/Abdominal exam: Present: soft, normal bowel sounds. Absent: distended, tenderness - Extremities Exam Extremities exam: Present: normal inspection, full ROM. Absent: tenderness - Back Exam Back exam: Present: normal inspection, full ROM. Absent: tenderness - Neurological Exam Neurological exam: Present: other (GCS 11 (E3, V3, M5)) - Skin Skin exam: Present: warm, dry, intact ED Course Vital Signs 12/11/16 19:00 Temperature 99.7 F H Pulse Rate 93 H Respiratory 16 Rate Blood Pressure 131/68 [Left] O2 Sat by Pulse 99 Oximetry - Lab Data Result diagrams: 12/11/16 19:48 12/11/16 19:48 Lab Results 12/11/16 12/11/16 12/11/16 Range/Units 19:48 19:48 19:48 WBC 6.3 (4.5-11.0) K/mm3 RBC 3.47 L (3.65-5.03) M/mm3 Hgb 10.7 (10.1-14.3) gm/dl Hct 31.6 (30.3-42.9) % MCV 91 (79-97) fl MCH 31 (28-32) pg MCHC 34 (30-34) % RDW 17.4 H (13.2-15.2) % Plt Count 100 L (140-440) K/mm3 Lymph % (Auto) 20.3 (13.4-35.0) % [place] % (Auto) 12.1 H (0.0-7.3) % Eos % (Auto) 1.8 (0.0-4.3) % Baso % (Auto) 1.1 (0.0-1.8) % Lymph # 1.3 (1.2-5.4) K/mm3 [place] # 0.8 (0.0-0.8) K/mm3 Eos # 0.1 (0.0-0.4) K/mm3 Baso # 0.1 (0.0-0.1) K/mm3 Seg Neutrophils % 64.7 (40.0-70.0) % Seg Neutrophils # 4.1 (1.8-7.7) K/mm3 Sodium 139 (137-145) mmol/L Potassium 3.7 (3.6-5.0) mmol/L Chloride 106.0 (98-107) mmol/L Carbon Dioxide 20 L (22-30) mmol/L Anion Gap 17 mmol/L BUN 19 H (7-17) mg/dL Creatinine 0.9 (0.7-1.2) mg/dL Estimated GFR > 60 ml/min BUN/Creatinine Ratio 21.11 % Glucose 111 H (65-100) mg/dL Lactic Acid 1.60 (0.7-2.0) mmol/L Calcium 8.6 (8.4-10.2) mg/dL Magnesium 1.60 L (1.7-2.3) mg/dL Total Bilirubin 1.40 H (0.1-1.2) mg/dL AST 51 H (5-40) units/L ALT 36 (7-56) units/L Alkaline Phosphatase 126 (35-129) units/L Ammonia (25-60) umol/L Total Protein 7.0 (6.3-8.2) g/dL Albumin 2.1 L (3.9-5) g/dL Albumin/Globulin Ratio 0.4 % TSH (0.270-4.200) mlU/mL Urine Color (Yellow) Urine Turbidity (Clear) Urine pH (5.0-7.0) Ur Specific [place] (1.003-1.030) Urine Protein (Negative) mg/dL Urine Glucose (UA) (Negative) mg/dL Urine Ketones (Negative) mg/dL Urine Blood (Negative) Urine Nitrite (Negative) Urine Bilirubin (Negative) Urine Urobilinogen (<2.0) mg/dL Ur Leukocyte Esterase (Negative) Urine WBC (Auto) (0.0-6.0) /HPF Urine RBC (Auto) (0.0-6.0) /HPF U Epithel Cells (Auto) (0-13.0) /HPF Urine Bacteria (Auto) (Negative) /HPF Urine WBC Clumps /HPF Urine Mucus /HPF Urine HCG, Qual (Negative) Salicylates (2.8-20.0) mg/dL Urine Opiates Screen Urine Methadone Screen Acetaminophen (10.0-30.0) ug/mL Ur Barbiturates Screen Ur Phencyclidine Scrn Ur Amphetamines Screen U Benzodiazepines Scrn Urine Cocaine Screen U Marijuana (THC) Screen Drugs of Abuse Note Plasma/Serum Alcohol (0-0.07) gm% 12/11/16 12/11/16 12/11/16 Range/Units 19:48 19:48 19:48 WBC (4.5-11.0) K/mm3 RBC (3.65-5.03) M/mm3 Hgb (10.1-14.3) gm/dl Hct (30.3-42.9) % MCV (79-97) fl MCH (28-32) pg MCHC (30-34) % RDW (13.2-15.2) % Plt Count (140-440) K/mm3 Lymph % (Auto) (13.4-35.0) % [place] % (Auto) (0.0-7.3) % Eos % (Auto) (0.0-4.3) % Baso % (Auto) (0.0-1.8) % Lymph # (1.2-5.4) K/mm3 [place] # (0.0-0.8) K/mm3 Eos # (0.0-0.4) K/mm3 Baso # (0.0-0.1) K/mm3 Seg Neutrophils % (40.0-70.0) % Seg Neutrophils # (1.8-7.7) K/mm3 Sodium (137-145) mmol/L Potassium (3.6-5.0) mmol/L Chloride (98-107) mmol/L Carbon Dioxide (22-30) mmol/L Anion Gap mmol/L BUN (7-17) mg/dL Creatinine (0.7-1.2) mg/dL Estimated GFR ml/min BUN/Creatinine Ratio % Glucose (65-100) mg/dL Lactic Acid (0.7-2.0) mmol/L Calcium (8.4-10.2) mg/dL Magnesium (1.7-2.3) mg/dL Total Bilirubin (0.1-1.2) mg/dL AST (5-40) units/L ALT (7-56) units/L Alkaline Phosphatase (35-129) units/L Ammonia (25-60) umol/L Total Protein (6.3-8.2) g/dL Albumin (3.9-5) g/dL Albumin/Globulin Ratio % TSH 1.480 (0.270-4.200) mlU/mL Urine Color (Yellow) Urine Turbidity (Clear) Urine pH (5.0-7.0) Ur Specific [place] (1.003-1.030) Urine Protein (Negative) mg/dL Urine Glucose (UA) (Negative) mg/dL Urine Ketones (Negative) mg/dL Urine Blood (Negative) Urine Nitrite (Negative) Urine Bilirubin (Negative) Urine Urobilinogen (<2.0) mg/dL Ur Leukocyte Esterase (Negative) Urine WBC (Auto) (0.0-6.0) /HPF Urine RBC (Auto) (0.0-6.0) /HPF U Epithel Cells (Auto) (0-13.0) /HPF Urine Bacteria (Auto) (Negative) /HPF Urine WBC Clumps /HPF Urine Mucus /HPF Urine HCG, Qual (Negative) Salicylates < 0.3 L (2.8-20.0) mg/dL Urine Opiates Screen Urine Methadone Screen Acetaminophen < 15.0 (10.0-30.0) ug/mL Ur Barbiturates Screen Ur Phencyclidine Scrn Ur Amphetamines Screen U Benzodiazepines Scrn Urine Cocaine Screen U Marijuana (THC) Screen Drugs of Abuse Note Plasma/Serum Alcohol (0-0.07) gm% 12/11/16 12/11/16 12/11/16 Range/Units 19:48 19:48 19:51 WBC (4.5-11.0) K/mm3 RBC (3.65-5.03) M/mm3 Hgb (10.1-14.3) gm/dl Hct (30.3-42.9) % MCV (79-97) fl MCH (28-32) pg MCHC (30-34) % RDW (13.2-15.2) % Plt Count (140-440) K/mm3 Lymph % (Auto) (13.4-35.0) % [place] % (Auto) (0.0-7.3) % Eos % (Auto) (0.0-4.3) % Baso % (Auto) (0.0-1.8) % Lymph # (1.2-5.4) K/mm3 [place] # (0.0-0.8) K/mm3 Eos # (0.0-0.4) K/mm3 Baso # (0.0-0.1) K/mm3 Seg Neutrophils % (40.0-70.0) % Seg Neutrophils # (1.8-7.7) K/mm3 Sodium (137-145) mmol/L Potassium (3.6-5.0) mmol/L Chloride (98-107) mmol/L Carbon Dioxide (22-30) mmol/L Anion Gap mmol/L BUN (7-17) mg/dL Creatinine (0.7-1.2) mg/dL Estimated GFR ml/min BUN/Creatinine Ratio % Glucose (65-100) mg/dL Lactic Acid (0.7-2.0) mmol/L Calcium (8.4-10.2) mg/dL Magnesium (1.7-2.3) mg/dL Total Bilirubin (0.1-1.2) mg/dL AST (5-40) units/L ALT (7-56) units/L Alkaline Phosphatase (35-129) units/L Ammonia 103.0 H (25-60) umol/L Total Protein (6.3-8.2) g/dL Albumin (3.9-5) g/dL Albumin/Globulin Ratio % TSH (0.270-4.200) mlU/mL Urine Color Kim (Yellow) Urine Turbidity Cloudy (Clear) Urine pH 6.0 (5.0-7.0) Ur Specific [place] 1.015 (1.003-1.030) Urine Protein 30 mg/dl (Negative) mg/dL Urine Glucose (UA) Neg (Negative) mg/dL Urine Ketones Neg (Negative) mg/dL Urine Blood Sm (Negative) Urine Nitrite Pos (Negative) Urine Bilirubin Neg (Negative) Urine Urobilinogen 4.0 (<2.0) mg/dL Ur Leukocyte Esterase Lg (Negative) Urine WBC (Auto) > 182.0 H (0.0-6.0) /HPF Urine RBC (Auto) 3.0 (0.0-6.0) /HPF U Epithel Cells (Auto) 2.0 (0-13.0) /HPF Urine Bacteria (Auto) 2+ (Negative) /HPF Urine WBC Clumps 3+ /HPF Urine Mucus Few /HPF Urine HCG, Qual Negative (Negative) Salicylates (2.8-20.0) mg/dL Urine Opiates Screen Urine Methadone Screen Acetaminophen (10.0-30.0) ug/mL Ur Barbiturates Screen Ur Phencyclidine Scrn Ur Amphetamines Screen U Benzodiazepines Scrn Urine Cocaine Screen U Marijuana (THC) Screen Drugs of Abuse Note Plasma/Serum Alcohol < 0.01 (0-0.07) gm% 12/11/16 Range/Units 19:51 WBC (4.5-11.0) K/mm3 RBC (3.65-5.03) M/mm3 Hgb (10.1-14.3) gm/dl Hct (30.3-42.9) % MCV (79-97) fl MCH (28-32) pg MCHC (30-34) % RDW (13.2-15.2) % Plt Count (140-440) K/mm3 Lymph % (Auto) (13.4-35.0) % [place] % (Auto) (0.0-7.3) % Eos % (Auto) (0.0-4.3) % Baso % (Auto) (0.0-1.8) % Lymph # (1.2-5.4) K/mm3 [place] # (0.0-0.8) K/mm3 Eos # (0.0-0.4) K/mm3 Baso # (0.0-0.1) K/mm3 Seg Neutrophils % (40.0-70.0) % Seg Neutrophils # (1.8-7.7) K/mm3 Sodium (137-145) mmol/L Potassium (3.6-5.0) mmol/L Chloride (98-107) mmol/L Carbon Dioxide (22-30) mmol/L Anion Gap mmol/L BUN (7-17) mg/dL Creatinine (0.7-1.2) mg/dL Estimated GFR ml/min BUN/Creatinine Ratio % Glucose (65-100) mg/dL Lactic Acid (0.7-2.0) mmol/L Calcium (8.4-10.2) mg/dL Magnesium (1.7-2.3) mg/dL Total Bilirubin (0.1-1.2) mg/dL AST (5-40) units/L ALT (7-56) units/L Alkaline Phosphatase (35-129) units/L Ammonia (25-60) umol/L Total Protein (6.3-8.2) g/dL Albumin (3.9-5) g/dL Albumin/Globulin Ratio % TSH (0.270-4.200) mlU/mL Urine Color (Yellow) Urine Turbidity (Clear) Urine pH (5.0-7.0) Ur Specific [place] (1.003-1.030) Urine Protein (Negative) mg/dL Urine Glucose (UA) (Negative) mg/dL Urine Ketones (Negative) mg/dL Urine Blood (Negative) Urine Nitrite (Negative) Urine Bilirubin (Negative) Urine Urobilinogen (<2.0) mg/dL Ur Leukocyte Esterase (Negative) Urine WBC (Auto) (0.0-6.0) /HPF Urine RBC (Auto) (0.0-6.0) /HPF U Epithel Cells (Auto) (0-13.0) /HPF Urine Bacteria (Auto) (Negative) /HPF Urine WBC Clumps /HPF Urine Mucus /HPF Urine HCG, Qual (Negative) Salicylates (2.8-20.0) mg/dL Urine Opiates Screen Presumptive negative Urine Methadone Screen Presumptive negative Acetaminophen (10.0-30.0) ug/mL Ur Barbiturates Screen Presumptive negative Ur Phencyclidine Scrn Presumptive negative Ur Amphetamines Screen Presumptive negative U Benzodiazepines Scrn Presumptive negative Urine Cocaine Screen Presumptive negative U Marijuana (THC) Screen Presumptive negative Drugs of Abuse Note Disclamer Plasma/Serum Alcohol (0-0.07) gm% - EKG Data -: EKG Interpreted by Me EKG shows normal: sinus rhythm, axis, intervals, QRS complexes Rate: normal When compared to previous EKG there are: no significant change Interpretation: unchanged when compared t (11/13/2016), nonspecific ST-T wave ashley - Medical Decision Making Laboratory results reviewed. Magnesium is being replaced IV. IV Rocephin is also been ordered. Patient will also be administered a lactulose enema. I have discussed the case with Dr. Patterson, hospitalist, who will admit. - Differential Diagnosis hepatic encephalopathy, infection Critical care attestation.: If time is entered above; I have spent that time in minutes in the direct care of this critically ill patient, excluding procedure time. ED Disposition Clinical Impression: Hepatic encephalopathy, Hypomagnesemia UTI (urinary tract infection) Qualifiers: Urinary tract infection type: acute cystitis Hematuria presence: without hematuria Qualified Code(s): N30.00 - Acute cystitis without hematuria Disposition: OP ADMITTED IP TO THIS HOSP Is pt being admited?: Yes Condition: Stable Referrals: PRIMARY CARE, [Primary Care Provider] - 3-5 Days Time of Disposition: 21:19
[2016-12-11 20:05] LABS: Urine Drugs of Abuse Note Disclamer
[2016-12-11 20:21] LABS: Basophils % (Auto) 1.1 % (0.0-1.8); Eosinophils % (Auto) 1.8 % (0.0-4.3); Hematocrit 31.6 % (30.3-42.9); Hemoglobin 10.7 gm/dl (10.1-14.3); Mean Corpuscular HGB Conc 34 % (30-34); Mean Corpuscular Hemoglobin 31 pg (28-32); Mean Corpuscular Volume 91 fl (79-97); Platelet Count 100 K/mm3 (140-440); Red Blood Count 3.47 M/mm3 (3.65-5.03); Red Cell Distribution Width 17.4 % (13.2-15.2); White Blood Count 6.3 K/mm3 (4.5-11.0)
[2016-12-11 20:32] LABS: Alanine Aminotransferase 36 units/L (7-56); Albumin 2.1 g/dL (3.9-5); Albumin/Globulin Ratio 0.4 %; Alkaline Phosphatase 126 units/L (35-129); Anion Gap 17 mmol/L; BUN/Creatinine Ratio 21.11; Blood Urea Nitrogen 19 mg/dL (7-17); Calcium 8.6 mg/dL (8.4-10.2); Carbon Dioxide 20 mmol/L (22-30); Glucose 111 mg/dL (65-100); Potassium 3.7 mmol/L (3.6-5.0); Sodium 139 mmol/L (137-145)
[2016-12-11 20:33] LABS: Bacteria,Urine 2+ /HPF (Negative); Bilirubin,Urine NEG (Negative); Blood,Urine SM (Negative); Ketones,Urine NEG (Negative); Leukocyte Esterase,Urine LG (Negative); Mucus,Urine FEW /HPF; Nitrite,Urine POS (Negative)
[2016-12-11 20:41] LABS: WBC,Urine > 182.0 /HPF (0.0-6.0)
[2016-12-11] MEDS ORDERED: CEPHULAC PR ONE (21:08)
[2016-12-11] MEDS ORDERED: MAGNESIUM SULFATE 2GM/50ML 2 GM/50 ML BAG IV ONE (21:08)
[2016-12-11] MEDS ORDERED: ROCEPHIN/NS 1 GM/50 ML 1 GM/50 ML BAG IV ONE (21:08)
[2016-12-11] MEDS ORDERED: CEPHULAC PR SCH (23:00)
--- NOTE | 2016-12-11 23:09 | Event Note ---
Date: 12/11/16 See H/p in reports Hepatic Encephalopathy Cirrhosis Hx of Auto immune Hepatitis
[2016-12-12] MEDS: NOVOLOG SUB-Q SCH ×4 (01:04→18:38)
[2016-12-12] MEDS: CEPHULAC PO SCH ×4 (01:24→18:36)
--- NOTE | 2016-12-12 08:46 | Admit Criteria Form ---
Admission Criteria Documentation: LIVER DISEASE COMPLICATIONS Clinical Indications for Admission to Inpatient Care (Place 'X' for any and all applicable criteria): Admission is indicated for patient with ANY ONE of the following(1)(2)(3)(4): [ ]I. Inpatient admission required rather than observation care because of ANY ONE of the following: [ ]a) Hemodynamic instability that is severe or persistent [ ]b) Severe electrolyte abnormalities requiring inpatient care [ ]c) Respiratory compromise that is severe or persistent [ ]d) Coagulation abnormal that is severe or persistent [ ]e) Severe pain requiring acute inpatient management [ ]f) Renal insufficiency that is severe or worsening [ ]g) Metabolic abnormalities (e.g., vomiting, hypoglycemia, acidosis) that are severe or persistent [ ]h) Hypovolemia or hypervolemia that is severe or persistent [ ]i) Absent bowel sounds with complete ileus(2) [ ]j) Signs of intestinal obstruction or peritonitis[A] [ ]k) IV fluid to replace significant ongoing losses (>3 L/m2 per day) [ ]l) Continuous IV infusion of anticoagulation, platelet inhibitor, vasoactive, or antiarrhythmic medication [ ]m) Percutaneous or open drainage (e.g., abscess, biliary tract) procedures [ ]n) Parenteral nutrition regimen that must be implemented on inpatient basis [ ]o) Other condition treatment or monitoring requiring inpatient admission [ ]II. Infected hepatic hydrothorax (eg, empyema) [ ]III. Hepatorenal syndrome (eg, elevated. creatinine with adequate volume status and negative evaluation for other cause)(8) [ ]IV. Spontaneous bacterial peritonitis [ ]V. Suspected infected ascites as indicated by ANY ONE of the following: [ ]a) Temp >100 degrees F (37.8 C ) [ ]b) High WBC count [ ]c) Abdominal pain or tenderness not relieved by paracentesis [X]. New-onset or worsening hepatic encephalopathy(7) [ ]VII. Suspected fulminant hepatic failure (e.g., acute coagulopathy with hepatic encephalopathy or acute elevation of hepatic transaminases to more than 15 times baseline)(4) [ ]VIII. Acute hepatitis (e.g., ALT and AST at least 3 times baseline) with coagulopathy or severe jaundice as indicated by ANY ONE of the following(9)(10): [ ]a) Bilirubin >20 mg/dL (342 moles/L)(11) [ ]b) Acute elevation of PT to >50% above normal or INR >1.5 [ ] IX. Treatment of injury from hepatotoxin (e.g., acetaminophen) that requires inpatient monitoring [ ] X. Acute fatty liver of Extended stay beyond goal length of stay may be needed for(3)(7): [ ]a) Hepatorenal syndrome [ ]b) Severe or persistent hepatic encephalopathy [ ]c) Renal failure due to other causes associated with cirrhosis (e.g., hypovolemia) [ ]d) Severe or persistent coagulation abnormalities [ ]e) Refractory ascites, volume, or electrolyte abnormality [ ]f) Severe or persistent gastroesophageal bleeding [ ]g) Severe infectious or hepatotoxin-induced hepatitis (eg, acetaminophen) [ ]h) Hemodynamic instability that is severe or persistent The original [facility] content created by [employer] has been revised. The portions of the content which have been revised are identified through the use of italic text or in bold, and [facility] has neither reviewed nor approved the modified material. All other unmodified content is copyright [facility]. Please see references footnoted in the original [facility] [employer] edition 2016 Admission Criteria Met: Yes
--- NOTE | 2016-12-12 09:09 | Progress Note ---
Assessment and Plan Assessment and plan: 46-year-old female who was brought into the hospital for Altered mental status, she was at [place] 5 day before coming here and had large volume paracentesis, patient was minimally responsive to verbal stimuli was not following commands, was confused. She was found to have hepatic encephalopathy and sepsis due to UTI 1. 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 UTI (does not meet sepsis criteria) continue antibiotics, follow-up urine cultures (prelim gram neg rods) 3. hypomagnesemia Has been repleted, recheck levels. 4. DM optimize insulins 5. HTN BP well controlled 6. Ascites obtain U/S of abdomen, appears to have resolved History Interval history: Mentation is improved, she wants a diet, still somnolent and lethargic Hospitalist Physical - Physical exam Narrative exam: General: Patient appears well in no distress HEENT: MMM, EOMI cardiac: S1-S2 heard lungs: clear to auscultation, abdomen: soft, nontender, distended, enlarged liver, with shifting dullness extremities: no edema clubbing or cyanosis Skin: no rash or lesion Neuro: no focal deficit, lethargic, somnolent Psych: appropriate behavior and mood, cognition intact - Constitutional Vitals: Temp Pulse Resp BP Pulse Ox 99.7 F H 93 H 18 131/68 100 12/11/16 19:00 12/11/16 19:00 12/11/16 19:00 12/11/16 19:00 12/11/16 19:00 Results - Labs CBC & Chem 7: 12/11/16 19:48 12/12/16 09:41 Labs: Laboratory Last Values WBC 6.3 K/mm3 (4.5-11.0) 12/11/16 19:48 RBC 3.47 M/mm3 (3.65-5.03) L 12/11/16 19:48 Hgb 10.7 gm/dl (10.1-14.3) 12/11/16 19:48 Hct 31.6 % (30.3-42.9) 12/11/16 19:48 MCV 91 fl (79-97) 12/11/16 19:48 MCH 31 pg (28-32) 12/11/16 19:48 MCHC 34 % (30-34) 12/11/16 19:48 RDW 17.4 % (13.2-15.2) H 12/11/16 19:48 Plt Count 100 K/mm3 (140-440) L 12/11/16 19:48 Lymph % (Auto) 20.3 % (13.4-35.0) 12/11/16 19:48 [place] % (Auto) 12.1 % (0.0-7.3) H 12/11/16 19:48 Eos % (Auto) 1.8 % (0.0-4.3) 12/11/16 19:48 Baso % (Auto) 1.1 % (0.0-1.8) 12/11/16 19:48 Lymph # 1.3 K/mm3 (1.2-5.4) 12/11/16 19:48 [place] # 0.8 K/mm3 (0.0-0.8) 12/11/16 19:48 Eos # 0.1 K/mm3 (0.0-0.4) 12/11/16 19:48 Baso # 0.1 K/mm3 (0.0-0.1) 12/11/16 19:48 Seg Neutrophils % 64.7 % (40.0-70.0) 12/11/16 19:48 Seg Neutrophils # 4.1 K/mm3 (1.8-7.7) 12/11/16 19:48 Sodium 139 mmol/L (137-145) 12/11/16 19:48 Potassium 3.7 mmol/L (3.6-5.0) 12/11/16 19:48 Chloride 106.0 mmol/L (98-107) 12/11/16 19:48 Carbon Dioxide 20 mmol/L (22-30) L 12/11/16 19:48 Anion Gap 17 mmol/L 12/11/16 19:48 BUN 19 mg/dL (7-17) H 12/11/16 19:48 Creatinine 0.9 mg/dL (0.7-1.2) 12/11/16 19:48 Estimated GFR > 60 ml/min 12/11/16 19:48 BUN/Creatinine Ratio 21.11 % 12/11/16 19:48 Glucose 111 mg/dL (65-100) H 12/11/16 19:48 POC Glucose 131 (70-105) H 12/12/16 05:56 Lactic Acid 1.60 mmol/L (0.7-2.0) 12/11/16 21:16 Calcium 8.6 mg/dL (8.4-10.2) 12/11/16 19:48 Magnesium 1.60 mg/dL (1.7-2.3) L 12/11/16 19:48 Total Bilirubin 1.40 mg/dL (0.1-1.2) H 12/11/16 19:48 AST 51 units/L (5-40) H 12/11/16 19:48 ALT 36 units/L (7-56) 12/11/16 19:48 Alkaline Phosphatase 126 units/L (35-129) 12/11/16 19:48 Ammonia 103.0 umol/L (25-60) H 12/11/16 19:48 Total Protein 7.0 g/dL (6.3-8.2) 12/11/16 19:48 Albumin 2.1 g/dL (3.9-5) L 12/11/16 19:48 Albumin/Globulin Ratio 0.4 % 12/11/16 19:48 TSH 1.480 mlU/mL (0.270-4.200) 12/11/16 19:48 Urine Color Kim (Yellow) 12/11/16 19:51 Urine Turbidity Cloudy (Clear) 12/11/16 19:51 Urine pH 6.0 (5.0-7.0) 12/11/16 19:51 Ur Specific [place] 1.015 (1.003-1.030) 12/11/16 19:51 Urine Protein 30 mg/dl mg/dL (Negative) 12/11/16 19:51 Urine Glucose (UA) Neg mg/dL (Negative) 12/11/16 19:51 Urine Ketones Neg mg/dL (Negative) 12/11/16 19:51 Urine Blood Sm (Negative) 12/11/16 19:51 Urine Nitrite Pos (Negative) 12/11/16 19:51 Urine Bilirubin Neg (Negative) 12/11/16 19:51 Urine Urobilinogen 4.0 mg/dL (<2.0) 12/11/16 19:51 Ur Leukocyte Esterase Lg (Negative) 12/11/16 19:51 Urine WBC (Auto) > 182.0 /HPF (0.0-6.0) H 12/11/16 19:51 Urine RBC (Auto) 3.0 /HPF (0.0-6.0) 12/11/16 19:51 U Epithel Cells (Auto) 2.0 /HPF (0-13.0) 12/11/16 19:51 Urine Bacteria (Auto) 2+ /HPF (Negative) 12/11/16 19:51 Urine WBC Clumps 3+ /HPF 12/11/16 19:51 Urine Mucus Few /HPF 12/11/16 19:51 Urine HCG, Qual Negative (Negative) 12/11/16 19:51 Salicylates < 0.3 mg/dL (2.8-20.0) L 12/11/16 19:48 Urine Opiates Screen Presumptive negative 12/11/16 19:51 Urine Methadone Screen Presumptive negative 12/11/16 19:51 Acetaminophen < 15.0 ug/mL (10.0-30.0) 12/11/16 19:48 Ur Barbiturates Screen Presumptive negative 12/11/16 19:51 Ur Phencyclidine Scrn Presumptive negative 12/11/16 19:51 Ur Amphetamines Screen Presumptive negative 12/11/16 19:51 U Benzodiazepines Scrn Presumptive negative 12/11/16 19:51 Urine Cocaine Screen Presumptive negative 12/11/16 19:51 U Marijuana (THC) Screen Presumptive negative 12/11/16 19:51 Drugs of Abuse Note Disclamer 12/11/16 19:51 Plasma/Serum Alcohol < 0.01 gm% (0-0.07) 12/11/16 19:48
--- NOTE | 2016-12-12 09:36 | History and Physical Report ---
CHIEF COMPLAINT: Altered mental status since 9 a.m. this morning. HISTORY OF PRESENT ILLNESS: A 46-year-old female with history of cirrhosis, hepatitis, hypertension, and insulin-dependent diabetes brought in by mother for decreased responsiveness after sensorium. The patient opens her eyes occasionally and response to commands, but on a general basis the patient with responsiveness. 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 this morning. The patient has a prolonged history of autoimmune hepatitis resulting in cirrhosis and hepatic failure. PAST MEDICAL HISTORY: As mentioned hypertension, insulin-dependent diabetes, cirrhosis, autoimmune hepatitis, anemia, blind in left eye, and vision impairment in the right eye. SURGICAL HISTORY: Benign tumor removed from both breasts and liver biopsy. FAMILY HISTORY: No significant family history. SOCIAL HISTORY: Never smoked or alcohol. CURRENT MEDICATIONS: Lasix 40 mg daily, Aldactone 50 mg daily, insulin 70/30 20 units subcutaneous b.i.d., regular insulin 500 a.c. and at bedtime, and lisinopril 2.5 mg p.o. daily. REVIEW OF SYSTEMS: Could not be done except for that the patient has severely altered mental status secondary to her liver problems. Mother would not give much history about her for review of systems. In general, no fever. No chills. No abdominal pain. No nausea. No vomiting. No hematemesis. A 14-point review of systems was attempted to be done. Altered sensorium. Decreased responsiveness. Intermittently answers appropriately. PHYSICAL EXAMINATION: GENERAL: Middle-aged female, lethargic, and opens eyes spontaneously. VITAL SIGNS: Blood pressure is 131/68, temperature is 99.7, pulse is 93, and respirations are 16. HEENT: Unremarkable. Pupils are equal and reactive. NECK: Supple. No lymphadenopathy. No thyromegaly. LUNGS: Clear to auscultation and percussion. Good air entry. CARDIOVASCULAR: S1 and S2 heard. No gallop. No murmur. No rub. Apical impulse in left fifth intercostal space and midclavicular line. ABDOMEN: Soft and benign. No hepatosplenomegaly. No guarding. No rigidity. Hernial orifices are normal. EXTREMITIES: Good pedal pulses. No pedal edema. CENTRAL NERVOUS SYSTEM: Decreased responsiveness. Confused. Lethargic. Moves all four extremities. NEUROLOGIC: No focal deficits. LABORATORY DATA: White count is 6300, hemoglobin is 10.7, hematocrit is 31.6, and platelet count is 100,000. Sodium is 139, potassium is 3.7, chloride is 106, bicarb is 20, BUN and creatinine is 19 and 0.9, AST is 51, ALT is 36, magnesium is 1.6, and total bilirubin is 1.4. Urine shows more than 182 white cells. Glucose is 122 and 131. Ammonia level was high at 103. ASSESSMENT AND PLAN: 1. Hepatic encephalopathy secondary to cirrhosis, autoimmune hepatitis, and liver failure. The patient was started on lactulose q.6 [id number]. IV fluids. 2. Urinary tract infection. The patient started on Rocephin 2 grams IV piggyback q.24. 3. hypomagnesemia, supplemented. 4. Deep vein thrombosis prophylaxis, Lovenox initiated. GI consult requested because of the hepatic encephalopathy. The patient should improve with lactulose. The question is long-term care of this patient. 5. Insulin-dependent diabetes, coverage. Regular insulin was found. Accu-Cheks q.6 [id number] and moderate dose of sliding scale protocol. PROGNOSIS: Fair. JOB# [id number] VSM/NTS
[2016-12-12] MEDS ORDERED: NON-FORMULARY (Lisinopril [Zestril Tab] 2.5 MG) PO SCH (10:00)
[2016-12-12] MEDS: ZESTRIL PO SCH (11:59)
[2016-12-12] MEDS: LASIX PO SCH (12:00)
[2016-12-12] MEDS: ALDACTONE PO SCH (12:01)
[2016-12-12 12:11] LABS: Anion Gap 22 mmol/L; BUN/Creatinine Ratio 23.75; Blood Urea Nitrogen 19 mg/dL (7-17); Calcium 8.9 mg/dL (8.4-10.2); Carbon Dioxide 16 mmol/L (22-30); Glucose 163 mg/dL (65-100); Potassium 4.1 mmol/L (3.6-5.0); Sodium 141 mmol/L (137-145)
[2016-12-12] MEDS: ROCEPHIN/NS 2 GM/100 ML 2 GM/100 ML BAG IV SCH (21:19)
[2016-12-13] MEDS: CEPHULAC PO SCH ×4 (00:22→18:49)
[2016-12-13] MEDS: NOVOLOG SUB-Q SCH ×4 (00:23→18:49)
--- NOTE | 2016-12-13 08:19 | Ultrasound Report ---
ULTRASOUND ABDOMEN COMPLETE: Technique: Transabdominal ultrasound with color Doppler interrogation. History: Liver mass, ascites. Findings: Compared to the noncontrast CT abdomen and pelvis performed 08/24/16. Small perihepatic ascites is identified on today's exam which appears to be a new finding. The liver parenchyma is coarse suggesting mild parenchymal disease. There may be minimal surface nodularity to the liver. There is no evidence for liver mass or enlargement on ultrasound. There is mild splenomegaly measuring 15 cm in length. No focal splenic lesion. The gallbladder dimensions are within normal limits without intraluminal stone, wall thickening, or pericholecystic fluid. The CBD measures 5 mm. The visualized portions of the pancreas including the head and proximal body are within normal limits. The kidneys are normal size and position measuring 12 cm in length. The renal parenchyma is slightly echogenic suggesting mild renal parenchymal disease. No focal renal lesion or hydronephrosis. The aorta is within normal limits. No aneurysmal dilatation is noted. IMPRESSION: Coarse liver echotexture suggesting mild parenchymal disease. Mild cirrhotic changes could be considered but other etiologies are not excluded. No liver masses detected on ultrasound. Mild splenomegaly. Trace to small ascites. Echogenic kidneys consistent with renal parenchymal disease
--- NOTE | 2016-12-13 09:39 | Progress Note ---
Assessment and Plan 46-year-old female who was brought into the hospital for Altered mental status, she was at [place] 5 day before coming here and had large volume paracentesis, patient was minimally responsive to verbal stimuli was not following commands, was confused. 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 Medical records and medication list reviewed. No acute event overnight noted by the RN. Patient denies any chest pain, has exertional difficulty breathing. Patient is tolerating diet. Complains of significant abdominal distention Discussed plan of care at bedside with patient. Objective - Exam Narrative Exam: GENERAL: Elderly -[place] female lying on bed appeared to be in no discomfort. HEENT: Normocephalic. Atraumatic. No conjunctival congestion or icterus. Patient has moist mucous membranes. NECK: Supple. Trachea midline. CHEST/LUNGS: Clear to auscultated bilaterally, breathing nonlabored. No wheezes crackles or rhonchi. HEART/CARDIOVASCULAR: Regular in rate and rhythm. S1 and S2 positive. ABDOMEN: Abdomen is soft, nontender, distended with fluid thrill. Patient has normal bowel sounds. SKIN: There is no rash. Warm and dry. NEURO: No focal motor deficit. Follows command. MUSCULOSKELETAL: No joint effusion or tenderness. EXTRIMITY: No edema, no cyanosis or clubbing. PSYCH: Cooperative. - Constitutional Vitals: Vital Signs - 12hr 12/12/16 12/12/16 12/13/16 22:00 23:15 08:00 Temperature 98.5 F 97.9 F Pulse Rate [ 88 95 H 86 Right Radial] Respiratory 18 18 18 Rate Blood Pressure 115/63 121/76 [Left Arm] O2 Sat by Pulse 98 100 100 Oximetry - Labs CBC & Chem 7: 12/11/16 19:48 12/12/16 09:41 Labs: Abnormal lab results 12/12/16 12/12/16 12/12/16 Range/Units 05:40 09:41 11:24 Carbon Dioxide 16 L (22-30) mmol/L BUN 19 H (7-17) mg/dL Glucose 163 H (65-100) mg/dL POC Glucose 190 H (70-105) Hemoglobin A1c 14.7 H (4-6) % 12/12/16 12/12/16 12/13/16 Range/Units 16:12 21:23 06:14 Carbon Dioxide (22-30) mmol/L BUN (7-17) mg/dL Glucose (65-100) mg/dL POC Glucose 263 H 277 H 213 H (70-105) Hemoglobin A1c (4-6) %
--- NOTE | 2016-12-13 10:16 | Query-Infection ---
"Deafabricio Kruger Date:_12/13/16 [employer]p [employer]/CDS:ClaudiaFemi Christie Phone#:_[phone] Exercise your independent professional judgment when responding to this query. Questions asked do not imply a particular answer is desired or expected. We greatly appreciate your clarification on this issue. Clinical Documentation States: 46-year-old female presents to the emergency department via EMS for evaluation of altered mental status. Per report, the patient has been altered since approximate 9 AM this morning. EMS reports that the patient responds to verbal stimuli but will not follow commands. Clinical findings show: (please check applicable parameters) Infection, known /suspected, with some of the following indicators; Specify the infection: UTI Altered mental status/Hepatic encephalopathy Temp: 99.7 HR: 93 RR: 20 3 General parameters [ ] Fever (core temp >38.30C or 100.40F) [ ] Hypothermia (core temp <36C) [+] Heart rate >90 bpm [+] Tachypnea: >20 bpm or pCO2 < 32 mmHg [+] Altered mental status [ ] Significant edema / +ve fluid balance (>20 ml/kg 24 h) [ ] Hyperglycemia (Bl. glucose >110 mg/dl) w/o diabetes Inflammatory parameters [ ] Leukocytosis (white blood cell count >12,000/l) [ ] Leukopenia (white blood cell count <4,000/l) [ ] Bandemia (immature WBC > 10%) [ ] Leucocyte Left Shift [ ] Plasma procalcitonin>2 SD above the normal value Hemodynamic and tissue perfusion parameters [ ] Arterial hypotension(SBP <90 mmHg, MAP <70 mmHg,or a SBP drop >40 mmHg in adults) [ ] Hyperlactatemia (>3 mmol/l) [ ] Anion Gap (> 11mEG/l) [ ] Decreased capillary refill or mottling Organ dysfunction parameters [ ] Arterial hypoxemia (PaO2/FIO2 <300) [ ] Creatinine increase =0.5 mg/dl [ ] Acute oliguria (urine output <0.5 ml | kg |h or 45 mM/l for at least 2 hrs) [ ] Coagulation abnormalities (INR >1.5 or activated partial thromboplastin time >60 s) [ ] Ileus (absent kadie wel sounds) [ ] Thrombocytopenia (platelet count <100,000/l) [ ] Hyperbilirubinemia (plasma total bilirubin >4 mg/dl) According to the clinical indications above, can Bacteremia be further specified? If so, please indicate below and in your Progress Notes and/ or Discharge Summary. Indicate if the condition was present on admission. PHYSICIAN RESPONSE: [ ] Sepsis [ ] Severe Sepsis [ ] Septic Shock [ ] Septicemia [ ] Sepsis now resolved [ ] SIRS due to non-infectious cause with organ dysfunction [ ] SIRS due to non-infectious cause without organ dysfunction [ ] Other:_Does not meet sepsis [ ] Comment/Explanation: Present on Admission: [ ] Yes (Y) [X ] Clinically undeterminable (W) [ ] No (N) [ ] Ruled Out Please also document response in your Progress Notes and/or Discharge Summary and indicate if the condition was present on admission Notes: SIRS/ SIRS WITH ORGAN DYSFUNCTION Systemic inflammatory response syndrome (SIRS) generally refers to the systemic response to trauma/cox or other insult such as Acute Myocardial Infarction, Acute Pancreatitis, and Major Surgery with symptoms including fever, tachycardia , tachypnea, and leukocytosis (1). BACTEREMIA Presence of viable bacteria in the circulating blood (2). This term is reserved for patients that do not manifest above SIRS response. SEPTICEMIA Generally refers to a systemic disease associated with the presence of pathological microorganisms or toxins in the blood, which can include bacteria, viruses, fungi or other organisms (1). SEPSIS Generally refers to SIRS due infection (1). SEVERE SEPSIS Generally refers to sepsis associated with acute organ dysfunction (1). SEPTIC SHOCK Generally refers to circulatory failure associated with severe sepsis (2), and defined as hypotension or hypoperfusion despite adequate fluid resuscitation (1 hour) (3). REFERENCES: 1. [employer]/Society of Critical Care Medicine Consensus Conference. Definitions for sepsis and organ failure and guidelines for the use of innovative therapies in sepsis. Critical Care Med 1992;20:864 - 74. 2. Joseph robles MM, Evie MP, Blayne SHELBY, Vignesh E, Timothy D, Neri D, Roman J, Stacy SM , Yves BURGESS, Zeinab G; International Sepsis Definitions Conference. 2001 SCCM/ESICM/ACCP/ATS/SIS International Sepsis Definitions Conference. Intensive Care Med. 2002 Apr;29(4):530-8. Epub 2002Nov 08. Review. PubMed PMID:[id number] 3. ICD-9-CM Official Guidelines for Coding and Reporting 4. Medscape Drugs, Diseases and Procedures references 5. Rigoberto Textbook of Internal Medicine. 18th Edition MTDD"
[2016-12-13] MEDS: ALDACTONE PO SCH (11:34)
[2016-12-13] MEDS: ZESTRIL PO SCH (11:35)
[2016-12-13] MEDS: LASIX PO SCH (11:37)
[2016-12-13 15:59] LABS: Albumin 2.2 g/dL (3.9-5); Albumin/Globulin Ratio 0.4 %; Bilirubin,Direct 0.5 mg/dL (0-0.2); Bilirubin,Indirect 0.5 mg/dL; Total Protein 7.3 g/dL (6.3-8.2)
[2016-12-13] MEDS: ROCEPHIN/NS 2 GM/100 ML 2 GM/100 ML BAG IV SCH (21:59)
[2016-12-14] MEDS: NOVOLOG SUB-Q SCH ×3 (00:16→14:45)
[2016-12-14] MEDS: CEPHULAC PO SCH ×3 (00:16→14:45)
[2016-12-14] MEDS: LASIX PO SCH (09:29)
[2016-12-14] MEDS: ALDACTONE PO SCH (09:29)
[2016-12-14] MEDS: ZESTRIL PO SCH (09:33)
--- NOTE | 2016-12-14 09:33 | Discharge Summary ---
Providers - Providers Date of Admission: 12/11/16 21:20 Date of discharge: 12/14/16 Attending physician: CLOVIS PINEDA 12/13/16 09:40 Physical Therapy Evaluation and Treat [CONS] Routine Comment: Reason For Exam: placement 12/13/16 17:32 Consult to Wound/ET Nurse [CONS] Routine Reason For Exam: wound eval Primary care physician: SALES REPRESENTATIVE [employer]INTING [employer]ER Hospitalization Condition: Stable Pertinent studies: After ultrasound on 12/13/2016 showed trace amount of ascites. Hospital course: 46-year-old female who was brought into the hospital for Altered mental status, she was at [place] 5 day before coming here and had large volume paracentesis, patient was minimally responsive to verbal stimuli was not following commands, was confused. She was found to have hepatic encephalopathy and UTI. 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 - Patient has received lactulose to produce 2-4 soft bowel movements a day - Improved and at baseline now UTI (does not meet sepsis criteria) - continue antibiotics hypomagnesemia - Has been repleted, DM 2 - optimized insulins as needed, ADA diet - Blood glucose well controlled with Novolin (70/30) 20 units twice a day HTN, benign essential - BP well controlled -We will DC home with Aldactone, lasix and propranolol Ascites - obtained U/S of abdomen, appears to have resolved Physical debility -PT recommended home health Disposition: DC/[place] HOME UNDER HOME HEALTH Time spent for discharge: 32 minutes Core Measure Documentation - Palliative Care Palliative Care/ Comfort Measures: Not Applicable - Core Measures Any of the following diagnoses?: none Exam - Physical Exam Narrative exam: GENERAL: Elderly -Japanese female lying on bed appeared to be in no discomfort. HEENT: Normocephalic. Atraumatic. No conjunctival congestion or icterus. Patient has moist mucous membranes. NECK: Supple. Trachea midline. CHEST/LUNGS: Clear to auscultated bilaterally, breathing nonlabored. No wheezes crackles or rhonchi. HEART/CARDIOVASCULAR: Regular in rate and rhythm. S1 and S2 positive. ABDOMEN: Abdomen is soft, nontender, distended with fluid thrill. Patient has normal bowel sounds. SKIN: There is no rash. Warm and dry. NEURO: No focal motor deficit. Follows command. MUSCULOSKELETAL: No joint effusion or tenderness. EXTRIMITY: No edema, no cyanosis or clubbing. PSYCH: Cooperative. - Constitutional Vitals: Temp Pulse Resp BP Pulse Ox 98.4 F 87 20 105/61 99 12/14/16 08:00 12/14/16 08:00 12/14/16 08:00 12/14/16 08:00 12/14/16 08:00 Plan Activity: fall precautions Weight Bearing Status: Non-Weight Bearing Diet: diabetic Follow up with: PRIMARY CARE, [Primary Care Provider] - 3-5 Days Prescriptions: Ciprofloxacin HCl [Ciprofloxacin TAB] 500 mg PO Q12H #7 tab Propranolol [Inderal] 20 mg PO BID #60 tablet
[2016-12-14] MEDS ORDERED: INDERAL PO SCH (10:00)
[2016-12-14 15:28] VITALS: BP 142/80
== END 2016-12-14 16:14 | disposition home health service (06) | DRG 442 ==
LOC: ED 18:19 → 3A 21:20
PROVIDERS: ADMIT Internal Medicine; ATTEND Internal Medicine
DX: K72.90 Hepatic failure, unspecified without coma (principal); N39.0 Urinary tract infection, site not specified; R18.8 Other ascites; E83.42 Hypomagnesemia; K75.4 Autoimmune hepatitis; K74.60 Unspecified cirrhosis of liver; I10 Essential (primary) hypertension; E11.9 Type 2 diabetes mellitus without complications; Z79.4 Long term (current) use of insulin
CPT/HCPCS: 36415; 51702; 76700; 80048; 80053; 80074; 80307; 80320; 81001; 81025; 82140; 82962; 83036; 83735; 84443; 85025; 87086; 93005; 93010; 96365; G0480; G8978-GP; G8979-GP; J0696; J1815; J3475

== ENCOUNTER 2017-06-08 13:22 | Outpatient (CLI) | payer OTHER ==
--- NOTE | 2017-06-08 16:18 | Mammography Report ---
Bilateral mammogram: No previous studies available. CAD study utilized. Findings: Heterogeneous breast parenchyma bilaterally. Benign calcifications. Focal asymmetry medial left breast. Focal asymmetry upper right breast. Normal axilla. Impression: Focal asymmetry right and left breast. Comparison with previous studies is recommended. If previous studies not available spot mag and sonographic examination may be advised. BI-RADS CATEGORY: 0 = Needs additional imaging evaluation ACR BI-RADS MAMMOGRAPHIC CODES: 0 = Needs additional imaging evaluation; 1 = Negative; 2 = Benign; 3 = Probably benign; 4 = Suspicious; 5 = Malignant; 6 = Known biopsy-proven malignancy COMMENT: 1. Dense breast tissue, i.e., adenosis, fibrocystic changes, etc., may obscure an underlying neoplasm. 2. Approximately 10% of cancers are not detected with mammography. 3. A negative mammography report should not delay biopsy if a clinically suspicious mass is present. COMMENT: Patient follow-up letters are generated in [employer].
== END 2017-06-08 13:23 | disposition home or self-care (01) ==
LOC: MAMMO 13:22
PROVIDERS: ATTEND Internal Medicine
DX: Z12.31 Encounter for screening mammogram for malignant neoplasm of breast (principal)
CPT/HCPCS: 77067; G0202

== ENCOUNTER 2017-07-03 08:24 | Outpatient (CLI) | payer OTHER ==
--- NOTE | 2017-07-03 14:02 | Mammography Report ---
BILATERAL DIGITAL DIAGNOSTIC MAMMOGRAM : 07/03/17 08:24:00 CLINICAL: Reculture bilateral asymmetries. COMPARISON:06/08/17 screening FINDINGS: A right true lateral and bilateral spot compression views were performed and are negative. IMPRESSION: Negative Mammogram. BI-RADS CATEGORY: 1 -- Negative RECOMMENDATION: Routine mammographic screening in one year. ACR BI-RADS MAMMOGRAPHIC CODES: 0 = Needs additional imaging evaluation; 1 = Negative; 2 = Benign; 3 = Probably benign; 4 = Suspicious; 5 = Malignant; 6 = Known biopsy-proven malignancy COMMENT: 1. Dense breast tissue, i.e., adenosis, fibrocystic changes, etc., may obscure an underlying neoplasm. 2. Approximately 10% of cancers are not detected with mammography. 3. A negative mammography report should not delay biopsy if a clinically suspicious mass is present. COMMENT: Patient follow-up letters are generated via our [employer] application.
== END 2017-07-03 08:25 | disposition home or self-care (01) ==
LOC: MAMMO 08:24
PROVIDERS: ATTEND Internal Medicine
DX: R92.8 Other abnormal and inconclusive findings on diagnostic imaging of breast (principal)
CPT/HCPCS: 77066; G0204

== ENCOUNTER 2019-03-04 07:00 | Inpatient (IN) | payer OTHER ==
[2019-03-04] MEDS ORDERED: NACL 0.9% 500 ML 500 ML IV ONE (07:37)
--- NOTE | 2019-03-04 07:43 | Emergency Department Report ---
ED General Adult HPI - General Chief complaint: Altered Mental Status Stated complaint: POSS/HYPOTHERMIA Time Seen by Provider: 03/04/19 07:31 Source: EMS Mode of arrival: Stretcher Limitations: Altered Mental Status - History of Present Illness Initial comments: 48-year-old female with a prior history of hepatic encephalopathy transported via EMS for evaluation of altered mental status. Little further information is available to me at this time. The patient is somewhat lethargic and not well oriented. She is not complaining of pain. She can follow commands. She is not well able to provide any historical information at this time. She can identify lactulose as one of her medicines. She states that she has run out of insulin. She states that the reason why she is here is because she needs insulin. -: unknown - Related Data Home Medications Medication Instructions Recorded Confirmed Last Taken Cyclobenzaprine [Flexeril 10 MG 10 mg PO DAILY 11/13/16 11/13/16 Unknown TAB] Furosemide [Lasix TAB] 20 mg PO QDAY 11/13/16 11/13/16 Unknown Spironolactone [Aldactone] 50 mg PO QDAY 11/13/16 11/13/16 Unknown Previous Rx's Medication Instructions Recorded Last Taken Type Insulin NPH Hum/Reg Insulin Hm 20 unit SQ BID 30 Days ml 11/15/16 Unknown Rx [HumuLIN 70-30 Vial] Ciprofloxacin HCl [Ciprofloxacin 500 mg PO Q12H #7 tab 12/14/16 Unknown Rx TAB] Propranolol [Inderal] 20 mg PO BID #60 tablet 12/14/16 Unknown Rx Allergies Allergy/AdvReac Type Severity Reaction Status Date / Time No Known Allergies Allergy Verified 07/25/16 12:59 ED Review of Systems ROS: Stated complaint: POSS/HYPOTHERMIA Other details as noted in HPI Comment: Unobtainable due to pts medical conditions ED Past Medical Hx - Past Medical History Hx Hypertension: Yes Hx Congestive Heart Failure: No Hx Diabetes: Yes Hx Liver Disease: Yes (cirrhosis, autoimmune hepatitis) Hx Asthma: No Hx COPD: No Additional medical history: Anemia. 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 liver bx - Social History Smoking Status: Never Smoker - Medications Home Medications: Home Medications Medication Instructions Recorded Confirmed Last Taken Type Cyclobenzaprine [Flexeril 10 MG 10 mg PO DAILY 11/13/16 11/13/16 Unknown History TAB] Furosemide [Lasix TAB] 20 mg PO QDAY 11/13/16 11/13/16 Unknown History Spironolactone [Aldactone] 50 mg PO QDAY 11/13/16 11/13/16 Unknown History Insulin NPH Hum/Reg Insulin Hm 20 unit SQ BID 30 Days ml 11/15/16 Unknown Rx [HumuLIN 70-30 Vial] Ciprofloxacin HCl [Ciprofloxacin 500 mg PO Q12H #7 tab 12/14/16 Unknown Rx TAB] Propranolol [Inderal] 20 mg PO BID #60 tablet 12/14/16 Unknown Rx ED Physical Exam - General Limitations: Altered Mental Status General appearance: in no apparent distress, lethargic - Head Head exam: Present: atraumatic, normocephalic - Eye Eye exam: Present: normal appearance - ENT ENT exam: Present: mucous membranes moist - Neck Neck exam: Present: normal inspection. Absent: tenderness, meningismus - Respiratory Respiratory exam: Present: normal lung sounds bilaterally. Absent: respiratory distress - Cardiovascular Cardiovascular Exam: Present: regular rate, normal rhythm. Absent: systolic murmur, diastolic murmur, rubs, gallop - GI/Abdominal GI/Abdominal exam: Present: soft, normal bowel sounds. Absent: distended, tenderness, guarding, rebound, rigid - Extremities Exam Extremities exam: Present: normal inspection. Absent: calf tenderness - Back Exam Back exam: Present: normal inspection - Neurological Exam Neurological exam: Present: alert, oriented X3, CN II-XII intact (grossly). Absent: motor sensory deficit - Psychiatric Psychiatric exam: Present: normal mood, flat affect - Skin Skin exam: Present: warm, dry, intact, normal color. Absent: rash ED Course Vital Signs 03/04/19 03/04/19 07:30 08:07 Temperature 98.4 F 98.4 F Pulse Rate 105 H Respiratory 22 Rate Blood Pressure 136/46 O2 Sat by Pulse 100 Oximetry - Reevaluation(s) Reevaluation #1: Patient was found to have an elevated lactic acid, she is in metabolic acidosis, potassium is elevated, sugar is elevated. I don't think this is DKA. I think it is likely sepsis. We will address her elevated potassium. Intravenous antibiotics have been initiated. She will be given controlled IV fluids as she has elevated BNP. Deterioration of the patient's renal function since 2017 is noted. She is also thrombocytopenic and has an elevated ammonia. 03/04/19 09:06 03/04/19 09:10 Reevaluation #2: Discussed with Dr. Lizarraga at [facility]. They have accepted the patient had her request for transfer to [facility]. 03/04/19 09:23 Reevaluation #3: Discussed with Dr. Lizarraga. Patient was initially accepted at [facility]. However the patient refuses to go. She is requesting to go to an outpatient setting. This is inappropriate for her medical condition. Dr. Lizarraga has rejected this possibility. She cannot be transferred to a freestanding emergency clinic given her diagnosis. Patient's mental couple minutes he could be abated. However, at this time she will be just authorized to stay at this facility and admitted to the hospitalist service. She is for too weak to leave on her own accommodation. 03/04/19 10:19 ED Medical Decision Making - Lab Data Result diagrams: 03/04/19 07:54 03/04/19 07:54 Laboratory Results - last 24 hr 03/04/19 03/04/19 03/04/19 07:42 07:50 07:50 WBC RBC Hgb Hct MCV MCH MCHC RDW Plt Count Seg Neutrophils % PT INR APTT VBG pH Sodium Potassium Chloride Carbon Dioxide Anion Gap BUN Creatinine Estimated GFR BUN/Creatinine Ratio Glucose POC Glucose 360 H Ketones Quantitative Lactic Acid Calcium Magnesium Total Bilirubin AST ALT Alkaline Phosphatase Ammonia Total Creatine Kinase CK-MB (CK-2) CK-MB (CK-2) Rel Index Troponin T NT-Pro-B Natriuret Pep Total Protein Albumin Albumin/Globulin Ratio Urine Color Kim Urine Turbidity Cloudy Urine pH 5.0 Ur Specific [place] 1.023 Urine Protein 100 mg/dl Urine Glucose (UA) Neg Urine Ketones Tr Urine Blood Neg Urine Nitrite Neg Urine Bilirubin Neg Urine Urobilinogen 2.0 Ur Leukocyte Esterase Tr Urine WBC (Auto) < 1.0 Urine RBC (Auto) < 1.0 U Epithel Cells (Auto) 4.0 Urine Bacteria (Auto) 2+ Urine Mucus Few Urine Yeast (Budding) 3+ Urine Opiates Screen Presumptive negative Urine Methadone Screen Presumptive negative Ur Barbiturates Screen Presumptive negative Ur Phencyclidine Scrn Presumptive negative Ur Amphetamines Screen Presumptive negative U Benzodiazepines Scrn Presumptive negative Urine Cocaine Screen Presumptive negative U Marijuana (THC) Screen Presumptive negative Drugs of Abuse Note Disclamer 03/04/19 03/04/19 03/04/19 07:54 07:54 07:54 WBC 13.3 H RBC 3.17 L Hgb 10.3 Hct 29.8 L MCV 94 MCH 33 H MCHC 35 H RDW 17.4 H Plt Count 95 L Seg Neutrophils % Social Insurance Administrator PT INR APTT VBG pH 7.389 Sodium Potassium Chloride Carbon Dioxide Anion Gap BUN Creatinine Estimated GFR BUN/Creatinine Ratio Glucose POC Glucose Ketones Quantitative Lactic Acid 4.00 H* Calcium Magnesium Total Bilirubin AST ALT Alkaline Phosphatase Ammonia Total Creatine Kinase CK-MB (CK-2) CK-MB (CK-2) Rel Index Troponin T NT-Pro-B Natriuret Pep Total Protein Albumin Albumin/Globulin Ratio Urine Color Urine Turbidity Urine pH Ur Specific [place] Urine Protein Urine Glucose (UA) Urine Ketones Urine Blood Urine Nitrite Urine Bilirubin Urine Urobilinogen Ur Leukocyte Esterase Urine WBC (Auto) Urine RBC (Auto) U Epithel Cells (Auto) Urine Bacteria (Auto) Urine Mucus Urine Yeast (Budding) Urine Opiates Screen Urine Methadone Screen Ur Barbiturates Screen Ur Phencyclidine Scrn Ur Amphetamines Screen U Benzodiazepines Scrn Urine Cocaine Screen U Marijuana (THC) Screen Drugs of Abuse Note 03/04/19 03/04/19 03/04/19 07:54 07:54 07:54 WBC RBC Hgb Hct MCV MCH MCHC RDW Plt Count Seg Neutrophils % PT 17.4 H INR 1.46 H APTT 26.2 VBG pH Sodium 144 Potassium 5.8 H Chloride 108.4 H Carbon Dioxide 18 L Anion Gap 23 BUN 57 H Creatinine 1.9 H Estimated GFR 34 BUN/Creatinine Ratio 30 Glucose 358 H POC Glucose Ketones Quantitative Lactic Acid Calcium 9.1 Magnesium 1.80 Total Bilirubin 2.20 H AST 88 H ALT 65 H Alkaline Phosphatase 167 H Ammonia 75.0 H Total Creatine Kinase 810 H CK-MB (CK-2) 11.6 H CK-MB (CK-2) Rel Index 1.4 Troponin T 0.050 H NT-Pro-B Natriuret Pep 948.6 H Total Protein 7.8 Albumin 2.5 L Albumin/Globulin Ratio 0.5 Urine Color Urine Turbidity Urine pH Ur Specific [place] Urine Protein Urine Glucose (UA) Urine Ketones Urine Blood Urine Nitrite Urine Bilirubin Urine Urobilinogen Ur Leukocyte Esterase Urine WBC (Auto) Urine RBC (Auto) U Epithel Cells (Auto) Urine Bacteria (Auto) Urine Mucus Urine Yeast (Budding) Urine Opiates Screen Urine Methadone Screen Ur Barbiturates Screen Ur Phencyclidine Scrn Ur Amphetamines Screen U Benzodiazepines Scrn Urine Cocaine Screen U Marijuana (THC) Screen Drugs of Abuse Note 03/04/19 07:54 WBC RBC Hgb Hct MCV MCH MCHC RDW Plt Count Seg Neutrophils % PT INR APTT VBG pH Sodium Potassium Chloride Carbon Dioxide Anion Gap BUN Creatinine Estimated GFR BUN/Creatinine Ratio Glucose POC Glucose Ketones Quantitative Negative Lactic Acid Calcium Magnesium Total Bilirubin AST ALT Alkaline Phosphatase Ammonia Total Creatine Kinase CK-MB (CK-2) CK-MB (CK-2) Rel Index Troponin T NT-Pro-B Natriuret Pep Total Protein Albumin Albumin/Globulin Ratio Urine Color Urine Turbidity Urine pH Ur Specific [place] Urine Protein Urine Glucose (UA) Urine Ketones Urine Blood Urine Nitrite Urine Bilirubin Urine Urobilinogen Ur Leukocyte Esterase Urine WBC (Auto) Urine RBC (Auto) U Epithel Cells (Auto) Urine Bacteria (Auto) Urine Mucus Urine Yeast (Budding) Urine Opiates Screen Urine Methadone Screen Ur Barbiturates Screen Ur Phencyclidine Scrn Ur Amphetamines Screen U Benzodiazepines Scrn Urine Cocaine Screen U Marijuana (THC) Screen Drugs of Abuse Note - EKG Data -: EKG Interpreted by Me EKG shows normal: sinus rhythm, axis, intervals, QRS complexes, ST-T waves Rate: tachycardia - EKG Data Interpretation: no acute changes - Radiology Data Radiology results: image reviewed Chest x-ray no acute process Critical Care Time: Yes Critical care time in (mins) excluding proc time.: 60 Critical care attestation.: If time is entered above; I have spent that time in minutes in the direct care of this critically ill patient, excluding procedure time. ED Disposition Clinical Impression: Lactic acidosis, Hyperkalemia, Thrombocytopenia, Hyperammonemia, Hepatic encephalopathy, Hyperglycemia Sepsis Qualifiers: Sepsis type: sepsis due to unspecified organism Qualified Code(s): A41.9 - Sepsis, unspecified organism Acute renal failure Qualifiers: Acute renal failure type: unspecified Qualified Code(s): N17.9 - Acute kidney failure, unspecified Disposition: OP ADMIT IP TO THIS HOSP Is pt being admited?: Yes Does the pt Need Aspirin: Yes Condition: Stable Referrals: JOHNNY BUI MD [Primary Care Provider] - 3-5 Days Time of Disposition: 09:13
[2019-03-04 08:31] LABS: Bacteria,Urine 2+ /HPF (Negative); Bilirubin,Urine NEG (Negative); Blood,Urine NEG (Negative); Color,Urine Amber (Yellow); Mucus,Urine FEW /HPF
[2019-03-04 08:31] LABS: Hematocrit 29.8 % (30.3-42.9); Hemoglobin 10.3 gm/dl (10.1-14.3); Mean Corpuscular HGB Conc 35 % (30-34); Mean Corpuscular Volume 94 fl (79-97); Red Blood Count 3.17 M/mm3 (3.65-5.03); Red Cell Distribution Width 17.4 % (13.2-15.2)
[2019-03-04 08:32] LABS: RBC,Urine < 1.0 /HPF (0.0-6.0); WBC,Urine < 1.0 /HPF (0.0-6.0)
[2019-03-04 08:33] LABS: Platelet Count 95 K/mm3 (140-440)
[2019-03-04 08:33] LABS: Amphetamine Screen,Urine PRESUMPTIVE NEGATIVE; Benzodiazepines Screen,Urine PRESUMPTIVE NEGATIVE; Cannabinoid Screen,Urine PRESUMPTIVE NEGATIVE; Cocaine Screen,Urine PRESUMPTIVE NEGATIVE; Methadone Screen,Urine PRESUMPTIVE NEGATIVE; Opiate Screen,Urine PRESUMPTIVE NEGATIVE
[2019-03-04 08:42] LABS: INR 1.46 (0.87-1.13)
[2019-03-04 08:52] LABS: Creatine Kinase MB 11.6 ng/mL (0.0-4.0)
[2019-03-04 08:54] LABS: Partial Thromboplastin Time 26.2 Sec. (24.2-36.6)
[2019-03-04 08:55] LABS: Albumin 2.5 g/dL (3.9-5); Calcium 9.1 mg/dL (8.4-10.2)
[2019-03-04] MEDS ORDERED: HumuLIN R IV ONE (09:04)
[2019-03-04] MEDS ORDERED: MERREM 1,000 MG in NACL 0.9% 100 ML IV ONE (09:05)
[2019-03-04 09:07] LABS: Chol/HDL Ratio 6.16 %
[2019-03-04] MEDS ORDERED: NACL 0.9% 1000 ML 1,000 ML IV ONE (09:09)
--- NOTE | 2019-03-04 09:13 | XRay Report ---
CHEST 1 VIEW INDICATION / CLINICAL INFORMATION: possible Sepsis. COMPARISON: None available. FINDINGS: SUPPORT DEVICES: None. HEART / MEDIASTINUM: No significant abnormality. LUNGS / PLEURA: No significant pulmonary or pleural abnormality. No pneumothorax. ADDITIONAL FINDINGS: No significant additional findings. IMPRESSION: 1. No acute findings. Signer Name: Nasir Harding MD Signed: 03/04/2019 9:09 AM Workstation Name: [id number]
--- NOTE | 2019-03-04 09:13 | Cat Scan Report ---
CT HEAD WITHOUT CONTRAST INDICATION / CLINICAL INFORMATION: ams. Patient with history of diabetes mellitus. TECHNIQUE: All CT scans at this location are performed using CT dose reduction for ALARA by means of automated e xposure control. COMPARISON: None available. FINDINGS: HEMORRHAGE: No evidence of intracranial hemorrhage or extra-axial fluid collection. EXTRA-AXIAL SPACES: Cortical sulci, sylvian fissures and basilar cisterns have an unremarkable appear ance. VENTRICULAR SYSTEM: The ventricular system is of normal size and configuration. CEREBRAL PARENCHYMA: No areas of abnormal brain parenchymal attenuation are identified. There is no i ndication of recent infarction. MIDLINE SHIFT OR HERNIATION: There is no mass effect. CEREBELLUM / BRAINSTEM: Brainstem and cerebellum have an unremarkable appearance. INTRACRANIAL VESSELS:No abnormalities are identified on this noncontrast head CT. ORBITS: visualized portions of the orbits have an unremarkable appearance. SOFT TISSUES of HEAD: No significant abnormality. CALVARIUM: Evaluation of bone windows reveals no abnormalities. PARANASAL SINUSES / MASTOID AIR CELLS: Opacification of both sphenoid sinuses is noted. There is exte nsive mucosal disease within posterior ethmoid air cells bilaterally. These findings suggest obstruct ion of the air passageways of the OM U at the sphenoethmoidal recesses sees bilaterally. Sphenoid sin usitis should be considered. Paranasal sinuses and mastoid air cells are otherwise clear. IMPRESSION: 1. No intracranial abnormalities are identified. 2. Evidence of bilateral sphenoid and posterior ethmoid sinusitis. Signer Name: Darrian Perez MD Signed: 03/04/2019 9:08 AM Workstation Name: [id number]
[2019-03-04 09:14] LABS: Bilirubin,Direct 1.2 mg/dL (0-0.2)
[2019-03-04] MEDS ORDERED: KIONEX PO ONE (09:21)
[2019-03-04 09:24] LABS: Basophils % (Manual) 0 % (0.0-1.8); Eosinophils % (Manual) 0 % (0.0-4.3); Total Cells Counted 100
[2019-03-04 09:25] LABS: Large Platelets Rare; Platelet Estimate Consistent w Auto; RBC Morphology Normal
[2019-03-04] MEDS ORDERED: VANCOMYCIN 1,500 MG in NACL 0.9% 500 ML 500 ML IV ONE (09:45)
[2019-03-04] MEDS ORDERED: VANCOMYCIN PHARMACY TO DOSE IV SCH (10:00)
[2019-03-04] MEDS ORDERED: ZOFRAN IV PRN (18:11)
[2019-03-04] MEDS ORDERED: PERCOCET 5/325 PO PRN (18:11)
[2019-03-04] MEDS ORDERED: DILAUDID IV PRN (18:11)
[2019-03-04] MEDS ORDERED: TYLENOL PO PRN (18:11)
[2019-03-04] MEDS ORDERED: IBUPROFEN PO PRN (18:11)
[2019-03-04] MEDS ORDERED: SODIUM CHLORIDE FLUSH SYRINGE 10 ML IV PRN (18:11)
[2019-03-04] MEDS: ALDACTONE PO SCH (18:44)
[2019-03-04] MEDS: FLEXERIL PO SCH (18:44)
[2019-03-04] MEDS: NACL 0.9% 1000 ML 1,000 ML IV SCH (18:44)
[2019-03-04] MEDS: LASIX PO SCH (18:44)
--- NOTE | 2019-03-04 21:34 | History and Physical Report ---
History of Present Illness Date of examination: 03/04/19 Date of admission: 03/04/19 10:23 Chief complaint: Altered sensorium for 1 day History of present illness: 48-year-old female history of for congestive heart failure, cirrhosis, Hepatic failure, insulin-dependent diabetes and anemia, hepatic encephalopathy in the past brought in by EMS for total confusion and altered mental status of 1 day duration. Patient is lethargic and not oriented. Follows commands. Not able to give any history. Patient says that she ran out of insulin and not taking insulin. Taking lactulose on a regular basis. No fever or chills. Past Medical History Hypertension: Yes Congestive Heart Failure: No Diabetes: Yes Liver Disease: Yes (cirrhosis, autoimmune hepatitis Additional medical history: Anemia. 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 liver bx Social History Smoking Status: Never Smoker Family History Htn Medications Home Medications: Home Medications Medication Instructions Recorded Confirmed Last Taken Type Cyclobenzaprine [Flexeril 10 MG 10 mg PO DAILY 11/13/16 11/13/16 Unknown History TAB] Furosemide [Lasix TAB] 20 mg PO QDAY 11/13/16 11/13/16 Unknown History Spironolactone [Aldactone] 50 mg PO QDAY 11/13/16 11/13/16 Unknown History Insulin NPH Hum/Reg Insulin Hm 20 unit SQ BID 30 Days ml 11/15/16 Unknown Rx [HumuLIN 70-30 Vial] Ciprofloxacin HCl [Ciprofloxacin 500 mg PO Q12H #7 tab 12/14/16 Unknown Rx TAB] Propranolol [Inderal] 20 mg PO BID #60 tablet 12/14/16 Unknown Rx Review of Systems ROS: Stated complaint: POSS/HYPOTHERMIA Other details as noted in HPI Comment: Unobtainable due to pts medical conditions Medications and Allergies Allergies Allergy/AdvReac Type Severity Reaction Status Date / Time No Known Allergies Allergy Verified 07/25/16 12:59 Home Medications Medication Instructions Recorded Confirmed Last Taken Type Cyclobenzaprine [Flexeril 10 MG 10 mg PO DAILY 11/13/16 11/13/16 Unknown History TAB] Furosemide [Lasix TAB] 20 mg PO QDAY 11/13/16 11/13/16 Unknown History Spironolactone [Aldactone] 50 mg PO QDAY 11/13/16 11/13/16 Unknown History Insulin NPH Hum/Reg Insulin Hm 20 unit SQ BID 30 Days ml 11/15/16 Unknown Rx [HumuLIN 70-30 Vial] Ciprofloxacin HCl [Ciprofloxacin 500 mg PO Q12H #7 tab 12/14/16 Unknown Rx TAB] Propranolol [Inderal] 20 mg PO BID #60 tablet 12/14/16 Unknown Rx Active Meds: Active Medications Acetaminophen (Tylenol) 650 mg PO Q4H PRN PRN Reason: Pain MILD(1-3)/Fever >100.5/SPANN Cyclobenzaprine HCl (Flexeril) 10 mg PO DAILY [facility] Last Admin: 03/04/19 18:44 Dose: 10 mg Documented by: Famotidine (Pepcid) 20 mg IV BID [facility] Furosemide (Lasix) 20 mg PO DAILY@0600 [facility] Last Admin: 03/04/19 18:44 Dose: 20 mg Documented by: Hydromorphone HCl (Dilaudid) 0.5 mg IV Q3H PRN PRN Reason: Pain , Severe (7-10) Vancomycin HCl 1,250 mg/ (Sodium Chloride) 275 mls @ 183.333 mls/hr IV Q24H [facility] Sodium Chloride (Nacl 0.9% 1000 Ml) 1,000 mls @ 75 mls/hr IV DIRECT [facility] Last Admin: 03/04/19 18:44 Dose: 75 mls/hr Documented by: Ibuprofen (Ibuprofen) 600 mg PO Q6H PRN PRN Reason: Pain, Mild (1-3) Insulin Human Isoph/Insulin Regular (Humulin 70/30) 20 unit SUB-Q BID [facility] Insulin Human Lispro (Humalog) 0 unit SUB-Q ACHS [facility]; Protocol Ondansetron HCl (Zofran) 4 mg IV Q8H PRN PRN Reason: Nausea And Vomiting Oxycodone/Acetaminophen (Percocet 5/325) 1 tab PO Q6H PRN PRN Reason: Pain, Moderate (4-6) Propranolol HCl (Inderal) 20 mg PO BID [facility] Sodium Chloride (Sodium Chloride Flush Syringe 10 Ml) 10 ml IV BID [facility] Sodium Chloride (Sodium Chloride Flush Syringe 10 Ml) 10 ml IV PRN PRN PRN Reason: LINE FLUSH Spironolactone (Aldactone) 50 mg PO QDAY [facility] Last Admin: 03/04/19 18:44 Dose: 50 mg Documented by: Exam - Constitutional Vitals: Temp Pulse Resp BP Pulse Ox 98.5 F 110 H 20 134/61 100 03/04/19 16:28 03/04/19 16:28 03/04/19 16:28 03/04/19 16:28 03/04/19 16:28 General appearance: Present: no acute distress, well-nourished - EENT Eyes: Present: PERRL ENT: hearing intact, clear oral mucosa - Neck Neck: Present: supple, normal ROM - Respiratory Respiratory effort: normal Respiratory: bilateral: CTA - Cardiovascular Heart rate: 100 Rhythm: regular Heart Sounds: Present: S1 & S2. Absent: rub, click - Extremities Extremities: no ischemia, pulses intact, pulses symmetrical, No edema Peripheral Pulses: within normal limits - Abdominal General gastrointestinal: Present: soft, non-tender, non-distended, normal bowel sounds Female genitourinary: Present: normal - Rectal Rectal Exam: deferred - Integumentary Integumentary: Present: clear, warm, dry - Musculoskeletal Musculoskeletal: gait normal, strength equal bilaterally - Psychiatric Psychiatric: appropriate mood/affect, intact judgment & insight - Neurologic Neurologic: CNII-XII intact, moves all extremities - Allied Health Allied health notes reviewed: nursing, case management Results - Labs CBC & Chem 7: 03/04/19 07:54 03/04/19 07:54 Labs: Laboratory Last Values WBC 13.3 K/mm3 (4.5-11.0) H 03/04/19 07:54 RBC 3.17 M/mm3 (3.65-5.03) L 03/04/19 07:54 Hgb 10.3 gm/dl (10.1-14.3) 03/04/19 07:54 Hct 29.8 % (30.3-42.9) L 03/04/19 07:54 MCV 94 fl (79-97) 03/04/19 07:54 MCH 33 pg (28-32) H 03/04/19 07:54 MCHC 35 % (30-34) H 03/04/19 07:54 RDW 17.4 % (13.2-15.2) H 03/04/19 07:54 Plt Count 95 K/mm3 (140-440) L 03/04/19 07:54 Add Manual Diff Complete 03/04/19 07:54 Total Counted 100 03/04/19 07:54 Seg Neutrophils % Ingredient Scaler 03/04/19 07:54 Seg Neuts % (Manual) 98.0 % (40.0-70.0) H 03/04/19 07:54 0 % 03/04/19 07:54 1.0 % (13.4-35.0) L 03/04/19 07:54 Reactive Lymphs % (Man) 0 % 03/04/19 07:54 1.0 % (0.0-7.3) 03/04/19 07:54 0 % (0.0-4.3) 03/04/19 07:54 0 % (0.0-1.8) 03/04/19 07:54 0 % 03/04/19 07:54 0 % 03/04/19 07:54 0 % 03/04/19 07:54 0 % 03/04/19 07:54 Nucleated RBC % Not Reportable 03/04/19 07:54 Seg Neutrophils # Man 13.0 K/mm3 (1.8-7.7) H 03/04/19 07:54 Band Neutrophils # 0.0 K/mm3 03/04/19 07:54 0.1 K/mm3 (1.2-5.4) L 03/04/19 07:54 Abs React Lymphs (Man) 0.0 K/mm3 03/04/19 07:54 0.1 K/mm3 (0.0-0.8) 03/04/19 07:54 0.0 K/mm3 (0.0-0.4) 03/04/19 07:54 0.0 K/mm3 (0.0-0.1) 03/04/19 07:54 0.0 K/mm3 03/04/19 07:54 0.0 K/mm3 03/04/19 07:54 0.0 K/mm3 03/04/19 07:54 Blast Cells # 0.0 K/mm3 03/04/19 07:54 WBC Morphology Not Reportable 03/04/19 07:54 Hypersegmented Neuts Not Reportable 03/04/19 07:54 Hyposegmented Neuts Not Reportable 03/04/19 07:54 Hypogranular Neuts Not Reportable 03/04/19 07:54 Not Reportable 03/04/19 07:54 Not Reportable 03/04/19 07:54 Not Reportable 03/04/19 07:54 Not Reportable 03/04/19 07:54 Not Reportable 03/04/19 07:54 Not Reportable 03/04/19 07:54 Consistent w auto 03/04/19 07:54 Not Reportable 03/04/19 07:54 Plt Clumps, EDTA Not Reportable 03/04/19 07:54 Rare 03/04/19 07:54 Not Reportable 03/04/19 07:54 Not Reportable 03/04/19 07:54 Plt Morphology Comment Not Reportable 03/04/19 07:54 RBC Morphology Normal 03/04/19 07:54 Dimorphic RBCs Not Reportable 03/04/19 07:54 Not Reportable 03/04/19 07:54 Not Reportable 03/04/19 07:54 Not Reportable 03/04/19 07:54 Not Reportable 03/04/19 07:54 Not Reportable 03/04/19 07:54 Not Reportable 03/04/19 07:54 Not Reportable 03/04/19 07:54 Not Reportable 03/04/19 07:54 Not Reportable 03/04/19 07:54 Not Reportable 03/04/19 07:54 Not Reportable 03/04/19 07:54 Not Reportable 03/04/19 07:54 Not Reportable 03/04/19 07:54 Not Reportable 03/04/19 07:54 Not Reportable 03/04/19 07:54 Not Reportable 03/04/19 07:54 Not Reportable 03/04/19 07:54 Not Reportable 03/04/19 07:54 Not Reportable 03/04/19 07:54 Acanthocytes (Spur) Not Reportable 03/04/19 07:54 Rouleaux Not Reportable 03/04/19 07:54 Not Reportable 03/04/19 07:54 Not Reportable 03/04/19 07:54 Not Reportable 03/04/19 07:54 Not Reportable 03/04/19 07:54 Hem Pathologist Commnt No 03/04/19 07:54 PT 17.4 Sec. (12.2-14.9) H 03/04/19 07:54 INR 1.46 (0.87-1.13) H 03/04/19 07:54 APTT 26.2 Sec. (24.2-36.6) 03/04/19 07:54 VBG pH 7.389 (7.320-7.420) 03/04/19 07:54 Sodium 144 mmol/L (137-145) 03/04/19 07:54 Potassium 5.8 mmol/L (3.6-5.0) H 03/04/19 07:54 Chloride 108.4 mmol/L (98-107) H 03/04/19 07:54 Carbon Dioxide 18 mmol/L (22-30) L 03/04/19 07:54 23 mmol/L 03/04/19 07:54 BUN 57 mg/dL (7-17) H 03/04/19 07:54 1.9 mg/dL (0.7-1.2) H 03/04/19 07:54 Estimated GFR 34 ml/min 03/04/19 07:54 30 % 03/04/19 07:54 Glucose 358 mg/dL (65-100) H 03/04/19 07:54 POC Glucose 388 (70-105) H 03/04/19 17:48 12.4 % (4-6) H 03/04/19 07:54 Negative (Negative) 03/04/19 07:54 Lactic Acid 2.20 mmol/L (0.7-2.0) H* 03/04/19 15:39 Calcium 9.1 mg/dL (8.4-10.2) 03/04/19 07:54 Magnesium 1.80 mg/dL (1.7-2.3) 03/04/19 07:54 2.20 mg/dL (0.1-1.2) H 03/04/19 07:54 1.2 mg/dL (0-0.2) H 03/04/19 07:54 1.0 mg/dL 03/04/19 07:54 AST 88 units/L (5-40) H 03/04/19 07:54 ALT 65 units/L (7-56) H 03/04/19 07:54 167 units/L (35-129) H 03/04/19 07:54 75.0 umol/L (25-60) H 03/04/19 07:54 810 units/L (30-135) H 03/04/19 07:54 CK-MB (CK-2) 11.6 ng/mL (0.0-4.0) H 03/04/19 07:54 CK-MB (CK-2) Rel Index 1.4 (0-4) 03/04/19 07:54 0.050 ng/mL (0.00-0.029) H 03/04/19 07:54 NT-Pro-B Natriuret Pep 948.6 pg/mL (0-450) H 03/04/19 07:54 7.8 g/dL (6.3-8.2) 03/04/19 07:54 2.5 g/dL (3.9-5) L 03/04/19 07:54 0.5 % 03/04/19 07:54 Triglycerides 136 mg/dL (2-149) 03/04/19 07:54 Cholesterol 191 mg/dL (50-199) 03/04/19 07:54 147 mg/dL (50-130) H 03/04/19 07:54 31 mg/dL (40-59) L 03/04/19 07:54 6.16 % 03/04/19 07:54 Kim (Yellow) 03/04/19 07:50 Cloudy (Clear) 03/04/19 07:50 5.0 (5.0-7.0) 03/04/19 07:50 Ur Specific [place] 1.023 (1.003-1.030) 03/04/19 07:50 100 mg/dl mg/dL (Negative) 03/04/19 07:50 Neg mg/dL (Negative) 03/04/19 07:50 Tr mg/dL (Negative) 03/04/19 07:50 Neg (Negative) 03/04/19 07:50 Neg (Negative) 03/04/19 07:50 Neg (Negative) 03/04/19 07:50 2.0 mg/dL (<2.0) 03/04/19 07:50 Ur Leukocyte Esterase Tr (Negative) 03/04/19 07:50 < 1.0 /HPF (0.0-6.0) 03/04/19 07:50 < 1.0 /HPF (0.0-6.0) 03/04/19 07:50 U Epithel Cells (Auto) 4.0 /HPF (0-13.0) 03/04/19 07:50 2+ /HPF (Negative) 03/04/19 07:50 Few /HPF 03/04/19 07:50 3+ /HPF 03/04/19 07:50 Presumptive negative 03/04/19 07:50 Presumptive negative 03/04/19 07:50 Ur Barbiturates Screen Presumptive negative 03/04/19 07:50 Ur Phencyclidine Scrn Presumptive negative 03/04/19 07:50 Ur Amphetamines Screen Presumptive negative 03/04/19 07:50 U Benzodiazepines Scrn Presumptive negative 03/04/19 07:50 Presumptive negative 03/04/19 07:50 U Marijuana (THC) Screen Presumptive negative 03/04/19 07:50 Disclamer 03/04/19 07:50 - Imaging and Cardiology EKG: report reviewed (sinus tachycardia) Imaging and Cardiology: Chest x-ray no acute findings Head CT Ethmoid and sphenoid sinusitis Otherwise no acute findings Assessment and Plan Advance Directives: Yes (full code) VTE prophylaxis?: Chemical Plan of care discussed with patient/family: Yes - Patient Problems (1) Hepatic encephalopathy Current Visit: Yes Status: Acute Plan to address problem: Patient initiated on lactulose Ammonia level high but not very high CT abdomen ordered for quantifying ascites If necessary paracentesis (2) SIRS (systemic inflammatory response syndrome) Current Visit: Yes Status: Acute Plan to address problem: High white count and elevated lactic acid in favor of SIRS IV Rocephin initiated (3) Acute renal failure Current Visit: Yes Status: Acute Qualifiers: Acute renal failure type: unspecified Qualified Code(s): N17.9 - Acute kidney failure, unspecified Plan to address problem: IV fluids for now Monitor BUN/creatinine (4) Insulin dependent diabetes mellitus Current Visit: Yes Status: Acute Plan to address problem: Accu-Cheks and high-dose sliding scale protocol A1c is high 12.4 Novolin 70/30 to be increased at the time of discharge depending on the blood glucose levels (5) Elevated lactic acid level Current Visit: Yes Status: Acute Plan to address problem: Trend lactic acid levels Patient on IV Rocephin (6) Transaminitis Current Visit: Yes Status: Acute (7) Severe malnutrition Current Visit: Yes Status: Acute Plan to address problem: Dietitian consult requested (8) DVT prophylaxis Current Visit: Yes Status: Acute Plan to address problem: on heparin and GI prophylaxis
[2019-03-04] MEDS: INDERAL PO SCH (22:40)
[2019-03-04] MEDS: PEPCID IV SCH (22:40)
[2019-03-04] MEDS: HumaLOG SUB-Q SCH (22:41)
[2019-03-04] MEDS: SODIUM CHLORIDE FLUSH SYRINGE 10 ML IV SCH (22:47)
[2019-03-04] MEDS: ROCEPHIN/NS 2 GM/100 ML 2 GM/100 ML BAG IV SCH (22:47)
[2019-03-05 04:34] LABS: Basophils % (Auto) 0.4 % (0.0-1.8); Eosinophils # (Auto) 0.1 K/mm3 (0.0-0.4); Eosinophils % (Auto) 1.2 % (0.0-4.3); Hemoglobin 9.3 gm/dl (10.1-14.3); Lymphocytes # (Auto) 0.9 K/mm3 (1.2-5.4); Lymphocytes % (Auto) 13.2 % (13.4-35.0); Mean Corpuscular HGB Conc 34 % (30-34); Mean Corpuscular Volume 94 fl (79-97); Monocytes # (Auto) 0.6 K/mm3 (0.0-0.8); Monocytes % (Auto) 9.4 % (0.0-7.3); Red Blood Count 2.88 M/mm3 (3.65-5.03); Red Cell Distribution Width 17.6 % (13.2-15.2)
[2019-03-05 04:37] LABS: Platelet Count 84 K/mm3 (140-440)
[2019-03-05 04:52] LABS: Albumin 1.8 g/dL (3.9-5); Calcium 8.2 mg/dL (8.4-10.2)
[2019-03-05] MEDS: LASIX PO SCH (06:25)
--- NOTE | 2019-03-05 08:31 | Gastroenterology Consultation ---
History of Present Illness - Reason for Consult Consult date: 03/05/19 Hepatic Encephalopathy Requesting physician: JOANA FRANCE - History of Present Illness Patient with PMH sig for cirrhosis (she reports following with [place] [facility]) presents with AMS. She reports ran out of insulin b/c hadn't seen her doctor for so long that they wouldn't refill a Rx until she was seen by them in the office. She reports she then developed confusion, fatigue and weakness, and was brought in to the ER History obtained by patient and her mother who is at bedside Past Medical History Hypertension: Yes Congestive Heart Failure: No Diabetes: Yes Liver Disease: Yes (cirrhosis, autoimmune hepatitis) Additional medical history: Anemia. 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 liver bx Social History Smoking Status: Never Smoker Family History Htn Home meds obtained/updated/reviewed Medications and Allergies Allergies Allergy/AdvReac Type Severity Reaction Status Date / Time No Known Allergies Allergy Verified 07/25/16 12:59 Home Medications Medication Instructions Recorded Confirmed Last Taken Type Cyclobenzaprine [Flexeril 10 MG 10 mg PO DAILY 11/13/16 11/13/16 Unknown History TAB] Furosemide [Lasix TAB] 20 mg PO QDAY 11/13/16 11/13/16 Unknown History Spironolactone [Aldactone] 50 mg PO QDAY 11/13/16 11/13/16 Unknown History Insulin NPH Hum/Reg Insulin Hm 20 unit SQ BID 30 Days ml 11/15/16 Unknown Rx [HumuLIN 70-30 Vial] Ciprofloxacin HCl [Ciprofloxacin 500 mg PO Q12H #7 tab 12/14/16 Unknown Rx TAB] Propranolol [Inderal] 20 mg PO BID #60 tablet 12/14/16 Unknown Rx Active Meds: Active Medications Acetaminophen (Tylenol) 650 mg PO Q4H PRN PRN Reason: Pain MILD(1-3)/Fever >100.5/SPANN Cyclobenzaprine HCl (Flexeril) 10 mg PO DAILY [facility] Last Admin: 03/04/19 18:44 Dose: 10 mg Documented by: Famotidine (Pepcid) 20 mg IV BID [facility] Last Admin: 03/04/19 22:40 Dose: 20 mg Documented by: Furosemide (Lasix) 20 mg PO DAILY@0600 [facility] Last Admin: 03/05/19 06:25 Dose: 20 mg Documented by: Hydromorphone HCl (Dilaudid) 0.5 mg IV Q3H PRN PRN Reason: Pain , Severe (7-10) Vancomycin HCl 1,250 mg/ (Sodium Chloride) 275 mls @ 183.333 mls/hr IV Q24H [facility] Sodium Chloride (Nacl 0.9% 1000 Ml) 1,000 mls @ 75 mls/hr IV DIRECT [facility] Last Admin: 03/04/19 18:44 Dose: 75 mls/hr Documented by: Ceftriaxone Sodium (Rocephin/Ns 2 Gm/100 Ml) 2 gm in 100 mls @ 200 mls/hr IV Q24H [facility]; Protocol Last Admin: 03/04/19 22:47 Dose: 200 mls/hr Documented by: Ibuprofen (Ibuprofen) 600 mg PO Q6H PRN PRN Reason: Pain, Mild (1-3) Insulin Human Isoph/Insulin Regular (Humulin 70/30) 20 unit SUB-Q BID [facility] Last Admin: 03/04/19 22:42 Dose: 20 unit Documented by: Insulin Human Lispro (Humalog) 0 unit SUB-Q ACHS [facility]; Protocol Last Admin: 03/04/19 22:41 Dose: 10 unit Documented by: Ondansetron HCl (Zofran) 4 mg IV Q8H PRN PRN Reason: Nausea And Vomiting Oxycodone/Acetaminophen (Percocet 5/325) 1 tab PO Q6H PRN PRN Reason: Pain, Moderate (4-6) Propranolol HCl (Inderal) 20 mg PO BID [facility] Last Admin: 03/04/19 22:40 Dose: 20 mg Documented by: Rifaximin (Xifaxan) 550 mg PO BID [facility] Sodium Chloride (Sodium Chloride Flush Syringe 10 Ml) 10 ml IV BID [facility] Last Admin: 03/04/19 22:47 Dose: 10 ml Documented by: Sodium Chloride (Sodium Chloride Flush Syringe 10 Ml) 10 ml IV PRN PRN PRN Reason: LINE FLUSH Spironolactone (Aldactone) 50 mg PO QDAY [facility] Last Admin: 03/04/19 18:44 Dose: 50 mg Documented by: Review of Systems - Review of Systems ROS unobtainable: due to mental status All systems: negative Constitutional: chills, fatigue, weakness Eyes: change in vision Neurological: memory loss Exam - Constitutional Vital Signs: Temp Pulse Resp BP Pulse Ox 98.3 F 74 18 112/62 100 03/05/19 05:20 03/05/19 05:20 03/05/19 05:20 03/05/19 05:20 03/05/19 05:20 General appearance: no acute distress - EENT Eyes: other (no scleral icterus) ENT: hearing intact - Neck Neck: supple - Respiratory Respiratory effort: normal - Cardiovascular Rhythm: regular - Gastrointestinal General gastrointestinal: Present: soft, other (no fluid wave appreciated) - Integumentary Integumentary: Present: dry - Musculoskeletal Musculoskeletal: normal - Neurologic Neurological: other (mild asterixis) - Psychiatric Psychiatric: appropriate mood/affect - Labs CBC & Chem 7: 03/05/19 04:12 03/05/19 04:12 Lab Results: Laboratory Results - last 24 hr 03/04/19 03/04/19 03/04/19 07:50 07:50 07:54 WBC 13.3 H RBC 3.17 L Hgb 10.3 Hct 29.8 L MCV 94 MCH 33 H MCHC 35 H RDW 17.4 H Plt Count 95 L Lymph % (Auto) [place] % (Auto) Eos % (Auto) Baso % (Auto) Lymph # [place] # Eos # Baso # Add Manual Diff Complete Total Counted 100 Seg Neutrophils % [employer] Seg Neuts % (Manual) 98.0 H Band Neutrophils % 0 Lymphocytes % (Manual) 1.0 L Reactive Lymphs % (Man) 0 Monocytes % (Manual) 1.0 Eosinophils % (Manual) 0 Basophils % (Manual) 0 Metamyelocytes % 0 Myelocytes % 0 Promyelocytes % 0 Blast Cells % 0 Nucleated RBC % Not Reportable Seg Neutrophils # Seg Neutrophils # Man 13.0 H Band Neutrophils # 0.0 Lymphocytes # (Manual) 0.1 L Abs React Lymphs (Man) 0.0 Monocytes # (Manual) 0.1 Eosinophils # (Manual) 0.0 Basophils # (Manual) 0.0 Metamyelocytes # 0.0 Myelocytes # 0.0 Promyelocytes # 0.0 Blast Cells # 0.0 WBC Morphology Not Reportable Hypersegmented Neuts Not Reportable Hyposegmented Neuts Not Reportable Hypogranular Neuts Not Reportable Smudge Cells Not Reportable Toxic Granulation Not Reportable Toxic Vacuolation Not Reportable Dohle Bodies Not Reportable Pelger-Huet Anomaly Not Reportable Chary Rods Not Reportable Platelet Estimate Consistent w auto Clumped Platelets Not Reportable Plt Clumps, EDTA Not Reportable Large Platelets Rare Giant Platelets Not Reportable Platelet Satelliting Not Reportable Plt Morphology Comment Not Reportable RBC Morphology Normal Dimorphic RBCs Not Reportable Polychromasia Not Reportable Hypochromasia Not Reportable Poikilocytosis Not Reportable Anisocytosis Not Reportable Microcytosis Not Reportable Macrocytosis Not Reportable Spherocytes Not Reportable Pappenheimer Bodies Not Reportable Sickle Cells Not Reportable Target Cells Not Reportable Tear Drop Cells Not Reportable Ovalocytes Not Reportable Helmet Cells Not Reportable Paul-Vashon Bodies Not Reportable [place] Rings Not Reportable Marilyn Cells Not Reportable Bite Cells Not Reportable Crenated Cell Not Reportable Elliptocytes Not Reportable Acanthocytes (Spur) Not Reportable Rouleaux Not Reportable Hemoglobin C Crystals Not Reportable Schistocytes Not Reportable Malaria parasites Not Reportable Zurdo Bodies Not Reportable Hem Pathologist Commnt No PT INR APTT Sodium Potassium Chloride Carbon Dioxide Anion Gap BUN Creatinine Estimated GFR BUN/Creatinine Ratio Glucose POC Glucose Hemoglobin A1c Ketones Quantitative Lactic Acid Calcium Magnesium Total Bilirubin Direct Bilirubin Indirect Bilirubin AST ALT Alkaline Phosphatase Ammonia Total Creatine Kinase CK-MB (CK-2) CK-MB (CK-2) Rel Index Troponin T NT-Pro-B Natriuret Pep Total Protein Albumin Albumin/Globulin Ratio Triglycerides Cholesterol LDL Cholesterol Direct HDL Cholesterol Cholesterol/HDL Ratio Urine Color Kim Urine Turbidity Cloudy Urine pH 5.0 Ur Specific Saline 1.023 Urine Protein 100 mg/dl Urine Glucose (UA) Neg Urine Ketones Tr Urine Blood Neg Urine Nitrite Neg Urine Bilirubin Neg Urine Urobilinogen 2.0 Ur Leukocyte Esterase Tr Urine WBC (Auto) < 1.0 Urine RBC (Auto) < 1.0 U Epithel Cells (Auto) 4.0 Urine Bacteria (Auto) 2+ Urine Mucus Few Urine Yeast (Budding) 3+ Urine Opiates Screen Presumptive negative Urine Methadone Screen Presumptive negative Ur Barbiturates Screen Presumptive negative Ur Phencyclidine Scrn Presumptive negative Ur Amphetamines Screen Presumptive negative U Benzodiazepines Scrn Presumptive negative Urine Cocaine Screen Presumptive negative U Marijuana (THC) Screen Presumptive negative Drugs of Abuse Note Disclamer 03/04/19 03/04/19 03/04/19 07:54 07:54 07:54 WBC RBC Hgb Hct MCV MCH MCHC RDW Plt Count Lymph % (Auto) [place] % (Auto) Eos % (Auto) Baso % (Auto) Lymph # [place] # Eos # Baso # Add Manual Diff Total Counted Seg Neutrophils % Seg Neuts % (Manual) Band Neutrophils % Lymphocytes % (Manual) Reactive Lymphs % (Man) Monocytes % (Manual) Eosinophils % (Manual) Basophils % (Manual) Metamyelocytes % Myelocytes % Promyelocytes % Blast Cells % Nucleated RBC % Seg Neutrophils # Seg Neutrophils # Man Band Neutrophils # Lymphocytes # (Manual) Abs React Lymphs (Man) Monocytes # (Manual) Eosinophils # (Manual) Basophils # (Manual) Metamyelocytes # Myelocytes # Promyelocytes # Blast Cells # WBC Morphology Hypersegmented Neuts Hyposegmented Neuts Hypogranular Neuts Smudge Cells Toxic Granulation Toxic Vacuolation Dohle Bodies Pelger-Huet Anomaly Chary Rods Platelet Estimate Clumped Platelets Plt Clumps, EDTA Large Platelets Giant Platelets Platelet Satelliting Plt Morphology Comment RBC Morphology Dimorphic RBCs Polychromasia Hypochromasia Poikilocytosis Anisocytosis Microcytosis Macrocytosis Spherocytes Pappenheimer Bodies Sickle Cells Target Cells Tear Drop Cells Ovalocytes Helmet Cells Paul-Vashon Bodies [place] Rings Marilyn Cells Bite Cells Crenated Cell Elliptocytes Acanthocytes (Spur) Rouleaux Hemoglobin C Crystals Schistocytes Malaria parasites Zurdo Bodies Hem Pathologist Commnt PT 17.4 H INR 1.46 H APTT 26.2 Sodium 144 Potassium 5.8 H Chloride 108.4 H Carbon Dioxide 18 L Anion Gap 23 BUN 57 H Creatinine 1.9 H Estimated GFR 34 BUN/Creatinine Ratio 30 Glucose 358 H POC Glucose Hemoglobin A1c Ketones Quantitative Lactic Acid 4.00 H* Calcium 9.1 Magnesium 1.80 Total Bilirubin 2.20 H Direct Bilirubin 1.2 H Indirect Bilirubin 1.0 AST 88 H ALT 65 H Alkaline Phosphatase 167 H Ammonia Total Creatine Kinase 810 H CK-MB (CK-2) 11.6 H CK-MB (CK-2) Rel Index 1.4 Troponin T 0.050 H NT-Pro-B Natriuret Pep 948.6 H Total Protein 7.8 Albumin 2.5 L Albumin/Globulin Ratio 0.5 Triglycerides 136 Cholesterol 191 LDL Cholesterol Direct 147 H HDL Cholesterol 31 L Cholesterol/HDL Ratio 6.16 Urine Color Urine Turbidity Urine pH Ur Specific Saline Urine Protein Urine Glucose (UA) Urine Ketones Urine Blood Urine Nitrite Urine Bilirubin Urine Urobilinogen Ur Leukocyte Esterase Urine WBC (Auto) Urine RBC (Auto) U Epithel Cells (Auto) Urine Bacteria (Auto) Urine Mucus Urine Yeast (Budding) Urine Opiates Screen Urine Methadone Screen Ur Barbiturates Screen Ur Phencyclidine Scrn Ur Amphetamines Screen U Benzodiazepines Scrn Urine Cocaine Screen U Marijuana (THC) Screen Drugs of Abuse Note 03/04/19 03/04/19 03/04/19 07:54 07:54 07:54 WBC RBC Hgb Hct MCV MCH MCHC RDW Plt Count Lymph % (Auto) [place] % (Auto) Eos % (Auto) Baso % (Auto) Lymph # [place] # Eos # Baso # Add Manual Diff Total Counted Seg Neutrophils % Seg Neuts % (Manual) Band Neutrophils % Lymphocytes % (Manual) Reactive Lymphs % (Man) Monocytes % (Manual) Eosinophils % (Manual) Basophils % (Manual) Metamyelocytes % Myelocytes % Promyelocytes % Blast Cells % Nucleated RBC % Seg Neutrophils # Seg Neutrophils # Man Band Neutrophils # Lymphocytes # (Manual) Abs React Lymphs (Man) Monocytes # (Manual) Eosinophils # (Manual) Basophils # (Manual) Metamyelocytes # Myelocytes # Promyelocytes # Blast Cells # WBC Morphology Hypersegmented Neuts Hyposegmented Neuts Hypogranular Neuts Smudge Cells Toxic Granulation Toxic Vacuolation Dohle Bodies Pelger-Huet Anomaly Chary Rods Platelet Estimate Clumped Platelets Plt Clumps, EDTA Large Platelets Giant Platelets Platelet Satelliting Plt Morphology Comment RBC Morphology Dimorphic RBCs Polychromasia Hypochromasia Poikilocytosis Anisocytosis Microcytosis Macrocytosis Spherocytes Pappenheimer Bodies Sickle Cells Target Cells Tear Drop Cells Ovalocytes Helmet Cells Paul-Vashon Bodies [place] Rings Orchard Cells Bite Cells Crenated Cell Elliptocytes Acanthocytes (Spur) Rouleaux Hemoglobin C Crystals Schistocytes Malaria parasites Zurdo Bodies Hem Pathologist Commnt PT INR APTT Sodium Potassium Chloride Carbon Dioxide Anion Gap BUN Creatinine Estimated GFR BUN/Creatinine Ratio Glucose POC Glucose Hemoglobin A1c 12.4 H Ketones Quantitative Negative Lactic Acid Calcium Magnesium Total Bilirubin Direct Bilirubin Indirect Bilirubin AST ALT Alkaline Phosphatase Ammonia 75.0 H Total Creatine Kinase CK-MB (CK-2) CK-MB (CK-2) Rel Index Troponin T NT-Pro-B Natriuret Pep Total Protein Albumin Albumin/Globulin Ratio Triglycerides Cholesterol LDL Cholesterol Direct HDL Cholesterol Cholesterol/HDL Ratio Urine Color Urine Turbidity Urine pH Ur Specific Saline Urine Protein Urine Glucose (UA) Urine Ketones Urine Blood Urine Nitrite Urine Bilirubin Urine Urobilinogen Ur Leukocyte Esterase Urine WBC (Auto) Urine RBC (Auto) U Epithel Cells (Auto) Urine Bacteria (Auto) Urine Mucus Urine Yeast (Budding) Urine Opiates Screen Urine Methadone Screen Ur Barbiturates Screen Ur Phencyclidine Scrn Ur Amphetamines Screen U Benzodiazepines Scrn Urine Cocaine Screen U Marijuana (THC) Screen Drugs of Abuse Note 03/04/19 03/04/19 03/04/19 10:31 12:54 15:39 WBC RBC Hgb Hct MCV MCH MCHC RDW Plt Count Lymph % (Auto) [place] % (Auto) Eos % (Auto) Baso % (Auto) Lymph # [place] # Eos # Baso # Add Manual Diff Total Counted Seg Neutrophils % Seg Neuts % (Manual) Band Neutrophils % Lymphocytes % (Manual) Reactive Lymphs % (Man) Monocytes % (Manual) Eosinophils % (Manual) Basophils % (Manual) Metamyelocytes % Myelocytes % Promyelocytes % Blast Cells % Nucleated RBC % Seg Neutrophils # Seg Neutrophils # Man Band Neutrophils # Lymphocytes # (Manual) Abs React Lymphs (Man) Monocytes # (Manual) Eosinophils # (Manual) Basophils # (Manual) Metamyelocytes # Myelocytes # Promyelocytes # Blast Cells # WBC Morphology Hypersegmented Neuts Hyposegmented Neuts Hypogranular Neuts Smudge Cells Toxic Granulation Toxic Vacuolation Dohle Bodies Pelger-Huet Anomaly Chary Rods Platelet Estimate Clumped Platelets Plt Clumps, EDTA Large Platelets Giant Platelets Platelet Satelliting Plt Morphology Comment RBC Morphology Dimorphic RBCs Polychromasia Hypochromasia Poikilocytosis Anisocytosis Microcytosis Macrocytosis Spherocytes Pappenheimer Bodies Sickle Cells Target Cells Tear Drop Cells Ovalocytes Helmet Cells Paul-Vashon Bodies [place] Rings Orchard Cells Bite Cells Crenated Cell Elliptocytes Acanthocytes (Spur) Rouleaux Hemoglobin C Crystals Schistocytes Malaria parasites Zurdo Bodies Hem Pathologist Commnt PT INR APTT Sodium Potassium Chloride Carbon Dioxide Anion Gap BUN Creatinine Estimated GFR BUN/Creatinine Ratio Glucose POC Glucose 335 H Hemoglobin A1c Ketones Quantitative Lactic Acid 3.90 H* 2.20 H* Calcium Magnesium Total Bilirubin Direct Bilirubin Indirect Bilirubin AST ALT Alkaline Phosphatase Ammonia Total Creatine Kinase CK-MB (CK-2) CK-MB (CK-2) Rel Index Troponin T NT-Pro-B Natriuret Pep Total Protein Albumin Albumin/Globulin Ratio Triglycerides Cholesterol LDL Cholesterol Direct HDL Cholesterol Cholesterol/HDL Ratio Urine Color Urine Turbidity Urine pH Ur Specific Saline Urine Protein Urine Glucose (UA) Urine Ketones Urine Blood Urine Nitrite Urine Bilirubin Urine Urobilinogen Ur Leukocyte Esterase Urine WBC (Auto) Urine RBC (Auto) U Epithel Cells (Auto) Urine Bacteria (Auto) Urine Mucus Urine Yeast (Budding) Urine Opiates Screen Urine Methadone Screen Ur Barbiturates Screen Ur Phencyclidine Scrn Ur Amphetamines Screen U Benzodiazepines Scrn Urine Cocaine Screen U Marijuana (THC) Screen Drugs of Abuse Note 03/04/19 03/04/19 03/05/19 17:48 22:37 04:12 WBC 6.8 RBC 2.88 L Hgb 9.3 L Hct 27.0 L MCV 94 MCH 32 MCHC 34 RDW 17.6 H Plt Count 84 L Lymph % (Auto) 13.2 L [place] % (Auto) 9.4 H Eos % (Auto) 1.2 Baso % (Auto) 0.4 Lymph # 0.9 L [place] # 0.6 Eos # 0.1 Baso # 0.0 Add Manual Diff Total Counted Seg Neutrophils % 75.8 H Seg Neuts % (Manual) Band Neutrophils % Lymphocytes % (Manual) Reactive Lymphs % (Man) Monocytes % (Manual) Eosinophils % (Manual) Basophils % (Manual) Metamyelocytes % Myelocytes % Promyelocytes % Blast Cells % Nucleated RBC % Seg Neutrophils # 5.1 Seg Neutrophils # Man Band Neutrophils # Lymphocytes # (Manual) Abs React Lymphs (Man) Monocytes # (Manual) Eosinophils # (Manual) Basophils # (Manual) Metamyelocytes # Myelocytes # Promyelocytes # Blast Cells # WBC Morphology Hypersegmented Neuts Hyposegmented Neuts Hypogranular Neuts Smudge Cells Toxic Granulation Toxic Vacuolation Dohle Bodies Pelger-Huet Anomaly Chary Rods Platelet Estimate Clumped Platelets Plt Clumps, EDTA Large Platelets Giant Platelets Platelet Satelliting Plt Morphology Comment RBC Morphology Dimorphic RBCs Polychromasia Hypochromasia Poikilocytosis Anisocytosis Microcytosis Macrocytosis Spherocytes Pappenheimer Bodies Sickle Cells Target Cells Tear Drop Cells Ovalocytes Helmet Cells Paul-Vashon Bodies [place] Rings Marilyn Cells Bite Cells Crenated Cell Elliptocytes Acanthocytes (Spur) Rouleaux Hemoglobin C Crystals Schistocytes Malaria parasites Zurdo Bodies Hem Pathologist Commnt PT INR APTT Sodium Potassium Chloride Carbon Dioxide Anion Gap BUN Creatinine Estimated GFR BUN/Creatinine Ratio Glucose POC Glucose 388 H 423 H Hemoglobin A1c Ketones Quantitative Lactic Acid Calcium Magnesium Total Bilirubin Direct Bilirubin Indirect Bilirubin AST ALT Alkaline Phosphatase Ammonia Total Creatine Kinase CK-MB (CK-2) CK-MB (CK-2) Rel Index Troponin T NT-Pro-B Natriuret Pep Total Protein Albumin Albumin/Globulin Ratio Triglycerides Cholesterol LDL Cholesterol Direct HDL Cholesterol Cholesterol/HDL Ratio Urine Color Urine Turbidity Urine pH Ur Specific Saline Urine Protein Urine Glucose (UA) Urine Ketones Urine Blood Urine Nitrite Urine Bilirubin Urine Urobilinogen Ur Leukocyte Esterase Urine WBC (Auto) Urine RBC (Auto) U Epithel Cells (Auto) Urine Bacteria (Auto) Urine Mucus Urine Yeast (Budding) Urine Opiates Screen Urine Methadone Screen Ur Barbiturates Screen Ur Phencyclidine Scrn Ur Amphetamines Screen U Benzodiazepines Scrn Urine Cocaine Screen U Marijuana (THC) Screen Drugs of Abuse Note 03/05/19 03/05/19 04:12 07:33 WBC RBC Hgb Hct MCV MCH MCHC RDW Plt Count Lymph % (Auto) [place] % (Auto) Eos % (Auto) Baso % (Auto) Lymph # [place] # Eos # Baso # Add Manual Diff Total Counted Seg Neutrophils % Seg Neuts % (Manual) Band Neutrophils % Lymphocytes % (Manual) Reactive Lymphs % (Man) Monocytes % (Manual) Eosinophils % (Manual) Basophils % (Manual) Metamyelocytes % Myelocytes % Promyelocytes % Blast Cells % Nucleated RBC % Seg Neutrophils # Seg Neutrophils # Man Band Neutrophils # Lymphocytes # (Manual) Abs React Lymphs (Man) Monocytes # (Manual) Eosinophils # (Manual) Basophils # (Manual) Metamyelocytes # Myelocytes # Promyelocytes # Blast Cells # WBC Morphology Hypersegmented Neuts Hyposegmented Neuts Hypogranular Neuts Smudge Cells Toxic Granulation Toxic Vacuolation Dohle Bodies Pelger-Huet Anomaly Chary Rods Platelet Estimate Clumped Platelets Plt Clumps, EDTA Large Platelets Giant Platelets Platelet Satelliting Plt Morphology Comment RBC Morphology Dimorphic RBCs Polychromasia Hypochromasia Poikilocytosis Anisocytosis Microcytosis Macrocytosis Spherocytes Pappenheimer Bodies Sickle Cells Target Cells Tear Drop Cells Ovalocytes Helmet Cells Paul-Vashon Bodies [place] Rings Orchard Cells Bite Cells Crenated Cell Elliptocytes Acanthocytes (Spur) Rouleaux Hemoglobin C Crystals Schistocytes Malaria parasites Zurdo Bodies Hem Pathologist Commnt PT INR APTT Sodium 140 Potassium 3.3 L D Chloride 109.7 H Carbon Dioxide 20 L Anion Gap 14 BUN 52 H Creatinine 2.0 H Estimated GFR 32 BUN/Creatinine Ratio 26 Glucose 246 H POC Glucose 206 H Hemoglobin A1c Ketones Quantitative Lactic Acid Calcium 8.2 L Magnesium Total Bilirubin 1.10 Direct Bilirubin Indirect Bilirubin AST 52 H ALT 48 Alkaline Phosphatase 129 Ammonia Total Creatine Kinase CK-MB (CK-2) CK-MB (CK-2) Rel Index Troponin T NT-Pro-B Natriuret Pep Total Protein 6.3 Albumin 1.8 L Albumin/Globulin Ratio 0.4 Triglycerides Cholesterol LDL Cholesterol Direct HDL Cholesterol Cholesterol/HDL Ratio Urine Color Urine Turbidity Urine pH Ur Specific Saline Urine Protein Urine Glucose (UA) Urine Ketones Urine Blood Urine Nitrite Urine Bilirubin Urine Urobilinogen Ur Leukocyte Esterase Urine WBC (Auto) Urine RBC (Auto) U Epithel Cells (Auto) Urine Bacteria (Auto) Urine Mucus Urine Yeast (Budding) Urine Opiates Screen Urine Methadone Screen Ur Barbiturates Screen Ur Phencyclidine Scrn Ur Amphetamines Screen U Benzodiazepines Scrn Urine Cocaine Screen U Marijuana (THC) Screen Drugs of Abuse Note Assessment and Plan * Please minimize opiates (ideally do not provide any opiates, especially in the setting of hepatic encephalopathy) * Correct electrolyte abnormalities (hypocalcemia) * I added Xifaxan to the patient's medications (lactulose can increase glucose levels so xifaxan is preferred for this patient with history of uncontrolled DM) * Avoid diuretics for the moment given acute rise in Creatinine compared to baseline * Low sodium diet * If patient does have ascites on imaging, will need diagnostic paracentesis * Acute change in MS likely due to the bacteremia isolated on blood cultures, continue treatment of the underlying infection Will continue to follow with you - Patient Problems (1) Hepatic encephalopathy Current Visit: Yes Status: Acute (2) Hyperammonemia Current Visit: Yes Status: Acute (3) Autoimmune liver disease Current Visit: No Status: Acute (4) Cirrhosis Current Visit: No Status: Acute (5) Renal insufficiency Current Visit: No Status: Acute
--- NOTE | 2019-03-05 09:42 | Progress Note ---
Assessment and Plan Assessment and plan: 48-year-old female history of for congestive heart failure, cirrhosis, Hepatic failure, insulin-dependent diabetes and anemia, hepatic encephalopathy in the past brought in by EMS for total confusion and altered mental status of 1 day duration After she was [place] [facility] police and was noted to be hypothermic although temp not documented. Per Triage note, patient had heat packs enroute to the hospital In the ED it was noted that the Patient is lethargic and not oriented. Follows commands. Patient says that she ran out of insulin and not taking insulin. Taking lactulose on a regular basis. No fever or chills. Past Medical History Hypertension: Yes Congestive Heart Failure: No Diabetes: Yes Liver Disease: Yes (cirrhosis, autoimmune hepatitis Additional medical history: Anemia. 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 (1) Hepatic encephalopathy Current Visit: Yes Status: Acute Plan to address problem: Patient initiated on lactulose Ammonia level high but not very high CT abdomen ordered for quantifying ascites us guided paracentesis Counselling provided (2) Sepsis Current Visit: Yes Status: Acute Plan to address problem: High white count and elevated lactic acid in favor of SIRS IV Rocephin initiated Gram negative Bactermia (3) Acute renal failure Current Visit: Yes Status: Acute Qualifiers: Acute renal failure type: unspecified Qualified Code(s): N17.9 - Acute kidney failure, unspecified Plan to address problem: IV fluids for now Monitor BUN/creatinine (4) Insulin dependent diabetes mellitus Current Visit: Yes Status: Acute Plan to address problem: Accu-Cheks and high-dose sliding scale protocol A1c is high 12.4 Novolin 70/30 to be increased at the time of discharge depending on the blood glucose levels (5) Elevated lactic acid level Current Visit: Yes Status: Acute Plan to address problem: Trend lactic acid levels Patient on IV Rocephin (6) Transaminitis Current Visit: Yes Status: Acute (7) Severe malnutrition Current Visit: Yes Status: Acute Plan to address problem: Dietitian consult requested (8) DVT prophylaxis Current Visit: Yes Status: Acute Plan to address problem: on heparin and GI prophylaxis History Interval history: Patient seen and examined, resting comfortable, no shortness of breath. She refuses paracentesis, parents present in the room Hospitalist Physical - Physical exam Narrative exam: General appearance: Present: no acute distress, well-nourished - EENT Eyes: Present: PERRL ENT: hearing intact, clear oral mucosa - Neck Neck: Present: supple, normal ROM - Respiratory Respiratory effort: normal Respiratory: bilateral: CTA - Cardiovascular Heart rate: 100 Rhythm: regular Heart Sounds: Present: S1 & S2. Absent: rub, click - Extremities Extremities: no ischemia, pulses intact, pulses symmetrical, No edema Peripheral Pulses: within normal limits - Abdominal General gastrointestinal: Present: soft, non-tender, non-distended, normal bowel sounds Female genitourinary: Present: normal - Rectal Rectal Exam: deferred - Integumentary Integumentary: Present: clear, warm, dry - Musculoskeletal Musculoskeletal: gait normal, strength equal bilaterally - Psychiatric Psychiatric: appropriate mood/affect, intact judgment & insight - Neurologic Neurologic: CNII-XII intact, moves all extremities - Allied Health Allied health notes reviewed: nursing, case management - Constitutional Vitals: Temp Pulse Resp BP Pulse Ox 98.3 F 74 18 112/62 100 03/05/19 05:20 03/05/19 05:20 03/05/19 05:20 03/05/19 05:20 03/05/19 05:20 General appearance: Present: no acute distress, well-nourished Results - Labs CBC & Chem 7: 03/05/19 04:12 03/05/19 04:12 Labs: Laboratory Last Values WBC 6.8 K/mm3 (4.5-11.0) 03/05/19 04:12 RBC 2.88 M/mm3 (3.65-5.03) L 03/05/19 04:12 Hgb 9.3 gm/dl (10.1-14.3) L 03/05/19 04:12 Hct 27.0 % (30.3-42.9) L 03/05/19 04:12 MCV 94 fl (79-97) 03/05/19 04:12 MCH 32 pg (28-32) 03/05/19 04:12 MCHC 34 % (30-34) 03/05/19 04:12 RDW 17.6 % (13.2-15.2) H 03/05/19 04:12 Plt Count 84 K/mm3 (140-440) L 03/05/19 04:12 Lymph % (Auto) 13.2 % (13.4-35.0) L 03/05/19 04:12 [place] % (Auto) 9.4 % (0.0-7.3) H 03/05/19 04:12 Eos % (Auto) 1.2 % (0.0-4.3) 03/05/19 04:12 Baso % (Auto) 0.4 % (0.0-1.8) 03/05/19 04:12 Lymph # 0.9 K/mm3 (1.2-5.4) L 03/05/19 04:12 [place] # 0.6 K/mm3 (0.0-0.8) 03/05/19 04:12 Eos # 0.1 K/mm3 (0.0-0.4) 03/05/19 04:12 Baso # 0.0 K/mm3 (0.0-0.1) 03/05/19 04:12 Add Manual Diff Complete 03/04/19 07:54 Total Counted 100 03/04/19 07:54 Seg Neutrophils % 75.8 % (40.0-70.0) H 03/05/19 04:12 Seg Neuts % (Manual) 98.0 % (40.0-70.0) H 03/04/19 07:54 0 % 03/04/19 07:54 1.0 % (13.4-35.0) L 03/04/19 07:54 Reactive Lymphs % (Man) 0 % 03/04/19 07:54 1.0 % (0.0-7.3) 03/04/19 07:54 0 % (0.0-4.3) 03/04/19 07:54 0 % (0.0-1.8) 03/04/19 07:54 0 % 03/04/19 07:54 0 % 03/04/19 07:54 0 % 03/04/19 07:54 0 % 03/04/19 07:54 Nucleated RBC % Not Reportable 03/04/19 07:54 Seg Neutrophils # 5.1 K/mm3 (1.8-7.7) 03/05/19 04:12 Seg Neutrophils # Man 13.0 K/mm3 (1.8-7.7) H 03/04/19 07:54 Band Neutrophils # 0.0 K/mm3 03/04/19 07:54 0.1 K/mm3 (1.2-5.4) L 03/04/19 07:54 Abs React Lymphs (Man) 0.0 K/mm3 03/04/19 07:54 0.1 K/mm3 (0.0-0.8) 03/04/19 07:54 0.0 K/mm3 (0.0-0.4) 03/04/19 07:54 0.0 K/mm3 (0.0-0.1) 03/04/19 07:54 0.0 K/mm3 03/04/19 07:54 0.0 K/mm3 03/04/19 07:54 0.0 K/mm3 03/04/19 07:54 Blast Cells # 0.0 K/mm3 03/04/19 07:54 WBC Morphology Not Reportable 03/04/19 07:54 Hypersegmented Neuts Not Reportable 03/04/19 07:54 Hyposegmented Neuts Not Reportable 03/04/19 07:54 Hypogranular Neuts Not Reportable 03/04/19 07:54 Not Reportable 03/04/19 07:54 Not Reportable 03/04/19 07:54 Not Reportable 03/04/19 07:54 Not Reportable 03/04/19 07:54 Not Reportable 03/04/19 07:54 Not Reportable 03/04/19 07:54 Consistent w auto 03/04/19 07:54 Not Reportable 03/04/19 07:54 Plt Clumps, EDTA Not Reportable 03/04/19 07:54 Rare 03/04/19 07:54 Not Reportable 03/04/19 07:54 Not Reportable 03/04/19 07:54 Plt Morphology Comment Not Reportable 03/04/19 07:54 RBC Morphology Normal 03/04/19 07:54 Dimorphic RBCs Not Reportable 03/04/19 07:54 Not Reportable 03/04/19 07:54 Not Reportable 03/04/19 07:54 Not Reportable 03/04/19 07:54 Not Reportable 03/04/19 07:54 Not Reportable 03/04/19 07:54 Not Reportable 03/04/19 07:54 Not Reportable 03/04/19 07:54 Not Reportable 03/04/19 07:54 Not Reportable 03/04/19 07:54 Not Reportable 03/04/19 07:54 Not Reportable 03/04/19 07:54 Not Reportable 03/04/19 07:54 Not Reportable 03/04/19 07:54 Not Reportable 03/04/19 07:54 Not Reportable 03/04/19 07:54 Not Reportable 03/04/19 07:54 Not Reportable 03/04/19 07:54 Not Reportable 03/04/19 07:54 Not Reportable 03/04/19 07:54 Acanthocytes (Spur) Not Reportable 03/04/19 07:54 Rouleaux Not Reportable 03/04/19 07:54 Not Reportable 03/04/19 07:54 Not Reportable 03/04/19 07:54 Not Reportable 03/04/19 07:54 Not Reportable 03/04/19 07:54 Hem Pathologist Commnt No 03/04/19 07:54 PT 17.4 Sec. (12.2-14.9) H 03/04/19 07:54 INR 1.46 (0.87-1.13) H 03/04/19 07:54 APTT 26.2 Sec. (24.2-36.6) 03/04/19 07:54 VBG pH 7.389 (7.320-7.420) 03/04/19 07:54 Sodium 140 mmol/L (137-145) 03/05/19 04:12 Potassium 3.3 mmol/L (3.6-5.0) L D 03/05/19 04:12 Chloride 109.7 mmol/L (98-107) H 03/05/19 04:12 Carbon Dioxide 20 mmol/L (22-30) L 03/05/19 04:12 14 mmol/L 03/05/19 04:12 BUN 52 mg/dL (7-17) H 03/05/19 04:12 2.0 mg/dL (0.7-1.2) H 03/05/19 04:12 Estimated GFR 32 ml/min 03/05/19 04:12 26 % 03/05/19 04:12 Glucose 246 mg/dL (65-100) H 03/05/19 04:12 POC Glucose 206 (70-105) H 03/05/19 07:33 12.4 % (4-6) H 03/04/19 07:54 Negative (Negative) 03/04/19 07:54 Lactic Acid 2.20 mmol/L (0.7-2.0) H* 03/04/19 15:39 Calcium 8.2 mg/dL (8.4-10.2) L 03/05/19 04:12 Magnesium 1.80 mg/dL (1.7-2.3) 03/04/19 07:54 1.10 mg/dL (0.1-1.2) 03/05/19 04:12 1.2 mg/dL (0-0.2) H 03/04/19 07:54 1.0 mg/dL 03/04/19 07:54 AST 52 units/L (5-40) H 03/05/19 04:12 ALT 48 units/L (7-56) 03/05/19 04:12 129 units/L (35-129) 03/05/19 04:12 75.0 umol/L (25-60) H 03/04/19 07:54 810 units/L (30-135) H 03/04/19 07:54 CK-MB (CK-2) 11.6 ng/mL (0.0-4.0) H 03/04/19 07:54 CK-MB (CK-2) Rel Index 1.4 (0-4) 03/04/19 07:54 0.050 ng/mL (0.00-0.029) H 03/04/19 07:54 NT-Pro-B Natriuret Pep 948.6 pg/mL (0-450) H 03/04/19 07:54 6.3 g/dL (6.3-8.2) 03/05/19 04:12 1.8 g/dL (3.9-5) L 03/05/19 04:12 0.4 % 03/05/19 04:12 Triglycerides 136 mg/dL (2-149) 03/04/19 07:54 Cholesterol 191 mg/dL (50-199) 03/04/19 07:54 147 mg/dL (50-130) H 03/04/19 07:54 31 mg/dL (40-59) L 03/04/19 07:54 6.16 % 03/04/19 07:54 Kim (Yellow) 03/04/19 07:50 Cloudy (Clear) 03/04/19 07:50 5.0 (5.0-7.0) 03/04/19 07:50 Ur Specific [place] 1.023 (1.003-1.030) 03/04/19 07:50 100 mg/dl mg/dL (Negative) 03/04/19 07:50 Neg mg/dL (Negative) 03/04/19 07:50 Tr mg/dL (Negative) 03/04/19 07:50 Neg (Negative) 03/04/19 07:50 Neg (Negative) 03/04/19 07:50 Neg (Negative) 03/04/19 07:50 2.0 mg/dL (<2.0) 03/04/19 07:50 Ur Leukocyte Esterase Tr (Negative) 03/04/19 07:50 < 1.0 /HPF (0.0-6.0) 03/04/19 07:50 < 1.0 /HPF (0.0-6.0) 03/04/19 07:50 U Epithel Cells (Auto) 4.0 /HPF (0-13.0) 03/04/19 07:50 2+ /HPF (Negative) 03/04/19 07:50 Few /HPF 03/04/19 07:50 3+ /HPF 03/04/19 07:50 Presumptive negative 03/04/19 07:50 Presumptive negative 03/04/19 07:50 Ur Barbiturates Screen Presumptive negative 03/04/19 07:50 Ur Phencyclidine Scrn Presumptive negative 03/04/19 07:50 Ur Amphetamines Screen Presumptive negative 03/04/19 07:50 U Benzodiazepines Scrn Presumptive negative 03/04/19 07:50 Presumptive negative 03/04/19 07:50 U Marijuana (THC) Screen Presumptive negative 03/04/19 07:50 Disclamer 03/04/19 07:50 Active Medications - Current Medications Current Medications: Generic Name Dose Route Start Last Admin Trade Name Freq PRN Reason Stop Dose Admin Acetaminophen 650 mg 03/04/19 18:11 Tylenol PO Q4H PRN Pain MILD(1-3)/Fever >100.5/SPANN Cyclobenzaprine HCl 10 mg 03/04/19 19:00 07/22/19 18:44 Flexeril PO 10 mg DAILY DEONNA Administration Famotidine 20 mg 03/04/19 22:00 03/04/19 22:40 Pepcid IV 20 mg BID DEONNA Administration Furosemide 20 mg 03/04/19 19:00 03/05/19 06:25 Lasix PO 20 mg DAILY@0600 DEONNA Administration Hydromorphone HCl 0.5 mg 03/04/19 18:11 Dilaudid IV Q3H PRN Pain , Severe (7-10) Vancomycin HCl 1,250 mg/ 275 mls @ 183.333 mls/hr 03/05/19 12:00 Sodium Chloride IV Q24H DEONNA Sodium Chloride 1,000 mls @ 75 mls/hr 03/04/19 19:00 03/04/19 18:44 Nacl 0.9% 1000 Ml IV 75 mls/hr DIRECT DEONNA Administration Ceftriaxone Sodium 2 gm in 100 mls @ 200 mls/hr 03/04/19 22:00 03/04/19 22:47 Rocephin/Ns 2 Gm/100 Ml IV 200 mls/hr Q24H EDONNA Administration Protocol Potassium Chloride 10 meq in 100 mls @ 100 mls/hr 03/05/19 10:00 Kcl 10meq/100ml IV 03/05/19 13:59 Q1H DEONNA Magnesium Sulfate 1 gm/ Sodium 52 mls @ 52 mls/hr 03/05/19 09:41 Chloride IV 03/05/19 10:40 ONCE ONE Ibuprofen 600 mg 03/04/19 18:11 Ibuprofen PO Q6H PRN Pain, Mild (1-3) Insulin Human Isoph/Insulin Regular 20 unit 03/04/19 22:00 03/04/19 22:42 Humulin 70/30 SUB-Q 20 unit BID DEONNA Administration Insulin Human Lispro 0 unit 03/04/19 22:00 03/04/19 22:41 Humalog SUB-Q 10 unit ACHS DEONNA Administration Protocol Ondansetron HCl 4 mg 03/04/19 18:11 Zofran IV Q8H PRN Nausea And Vomiting Oxycodone/Acetaminophen 1 tab 03/04/19 18:11 Percocet 5/325 PO Q6H PRN Pain, Moderate (4-6) Propranolol HCl 20 mg 03/04/19 22:00 03/04/19 22:40 Inderal PO 20 mg BID DEONNA Administration Rifaximin 550 mg 03/05/19 10:00 Xifaxan PO BID DEONNA Sodium Chloride 10 ml 03/04/19 22:00 03/04/19 22:47 Sodium Chloride Flush Syringe 10 Ml IV 10 ml BID DEONNA Administration Sodium Chloride 10 ml 03/04/19 18:11 Sodium Chloride Flush Syringe 10 Ml IV PRN PRN LINE FLUSH Spironolactone 50 mg 03/04/19 19:00 03/04/19 18:44 Aldactone PO 50 mg QDAY DEONNA Administration
[2019-03-05] MEDS: PEPCID IV SCH ×2 (09:53→22:25)
[2019-03-05] MEDS: XIFAXAN PO SCH ×2 (09:53→21:55)
[2019-03-05] MEDS: ALDACTONE PO SCH (09:54)
[2019-03-05] MEDS: FLEXERIL PO SCH (09:54)
[2019-03-05] MEDS: SODIUM CHLORIDE FLUSH SYRINGE 10 ML IV SCH ×2 (09:54→21:58)
[2019-03-05] MEDS: HumaLOG SUB-Q SCH ×4 (10:19→22:25)
[2019-03-05] MEDS: NACL 0.9% 1000 ML 1,000 ML IV SCH (10:19)
[2019-03-05] MEDS: INDERAL PO SCH ×2 (10:21→21:55)
[2019-03-05] MEDS ORDERED: MAGNESIUM SULFATE 1 GM in NACL 0.9% 50 ML IV ONE (11:00)
--- NOTE | 2019-03-05 11:25 | Consultation ---
History of Present Illness - Reason for Consult Consult date: 03/05/19 sepsis ?SBP Requesting physician: KENN MIN - History of Present Illness 48 y/o female history of for congestive heart failure, cirrhosis, diabetes, hepatic encephalopathy in the past admitted on due to 24 hour of AMS/confusion, reports she fell down while walking outdoors. She has been debilitated. Denies LOC. Denies respiratory symptoms, abdominal pain, N/V/D. Denies urinary symp toms. In the ED, temp 98.4, HR 105, R 22, BP 136/46. WBC 13.3. Hg 10.3. Plat 95. Creat 1.9. Lactate 4. UA negative. Blood culture GNR 2 of 4 bottles. CXR negative. Review of Systems: General: +generalized weakness Cutaneous: no rash, pruritus Head: no headaches or injury Eyes: no changes in vision, eye pain, double vision Ears: no ear pain, ear discharge, ringing or hearing loss Nose: no nose bleeding, stuffiness Mouth & throat: no bleeding gums, no horseness, no dental problems, or swollen glands Neck: no pain, node enlargement/lumps, tyroid enlargement or tenderness Respiratory: no SOB, no cough, no TEJEDA, wheezing, sputum, hemoptysis, pleuritic chest pain Cardiovascular: no chest pain, leg edema, cyanosis, TEJEDA, orthopnea Musculoskeletal: no edema Gastrointestinal: no nausea, no vomiting, no hematemesis, diarrhea, constipation, melena, bright red blood in stools, fecal incontinence, jaundice Genitourinary/Reproductive: no frequent urination, dysuria, hematuria, incontinence Neurogical:+AMS, no seizures, no headaches, no weakness, no paresthesias, no loss of speech or vision; no memory loss, no vertigo, no tremors, no numbness Psychiatric: stable mood; no excessive anxiety, sadness or moodiness Medications and Allergies Allergies Allergy/AdvReac Type Severity Reaction Status Date / Time No Known Allergies Allergy Verified 07/25/16 12:59 Home Medications Medication Instructions Recorded Confirmed Last Taken Type Cyclobenzaprine [Flexeril 10 MG 10 mg PO DAILY 11/13/16 11/13/16 Unknown History TAB] Furosemide [Lasix TAB] 20 mg PO QDAY 11/13/16 11/13/16 Unknown History Spironolactone [Aldactone] 50 mg PO QDAY 11/13/16 11/13/16 Unknown History Insulin NPH Hum/Reg Insulin Hm 20 unit SQ BID 30 Days ml 11/15/16 Unknown Rx [HumuLIN 70-30 Vial] Ciprofloxacin HCl [Ciprofloxacin 500 mg PO Q12H #7 tab 12/14/16 Unknown Rx TAB] Propranolol [Inderal] 20 mg PO BID #60 tablet 12/14/16 Unknown Rx Active Meds: Active Medications Acetaminophen (Tylenol) 650 mg PO Q4H PRN PRN Reason: Pain MILD(1-3)/Fever >100.5/SPANN Cyclobenzaprine HCl (Flexeril) 10 mg PO DAILY [facility] Last Admin: 03/05/19 09:54 Dose: 10 mg Documented by: Famotidine (Pepcid) 20 mg IV BID [facility] Last Admin: 03/05/19 09:53 Dose: 20 mg Documented by: Vancomycin HCl 1,250 mg/ (Sodium Chloride) 275 mls @ 183.333 mls/hr IV Q24H DEONNA Sodium Chloride (Nacl 0.9% 1000 Ml) 1,000 mls @ 75 mls/hr IV DIRECT DEONNA Last Admin: 03/05/19 10:19 Dose: 75 mls/hr Documented by: Ceftriaxone Sodium (Rocephin/Ns 2 Gm/100 Ml) 2 gm in 100 mls @ 200 mls/hr IV Q24H [facility]; Protocol Last Admin: 03/04/19 22:47 Dose: 200 mls/hr Documented by: Potassium Chloride (Kcl 10meq/100ml) 10 meq in 100 mls @ 100 mls/hr IV Q1H DEONNA Stop: 03/05/19 14:59 Magnesium Sulfate 1 gm/ Sodium (Chloride) 52 mls @ 52 mls/hr IV ONCE ONE Stop: 03/05/19 11:59 Last Admin: 03/05/19 11:17 Dose: 52 mls/hr Documented by: Insulin Human Isoph/Insulin Regular (Humulin 70/30) 20 unit SUB-Q BID [facility] Last Admin: 03/05/19 10:19 Dose: 20 unit Documented by: Insulin Human Lispro (Humalog) 0 unit SUB-Q ACHS DEONNA; Protocol Last Admin: 03/05/19 10:19 Dose: 4 unit Documented by: Ondansetron HCl (Zofran) 4 mg IV Q8H PRN PRN Reason: Nausea And Vomiting Oxycodone/Acetaminophen (Percocet 5/325) 1 tab PO Q6H PRN PRN Reason: Pain, Moderate (4-6) Propranolol HCl (Inderal) 20 mg PO BID [facility] Last Admin: 03/05/19 10:21 Dose: 20 mg Documented by: Rifaximin (Xifaxan) 550 mg PO BID [facility] Last Admin: 03/05/19 09:53 Dose: 550 mg Documented by: Sodium Chloride (Sodium Chloride Flush Syringe 10 Ml) 10 ml IV BID [facility] Last Admin: 03/05/19 09:54 Dose: 10 ml Documented by: Sodium Chloride (Sodium Chloride Flush Syringe 10 Ml) 10 ml IV PRN PRN PRN Reason: LINE FLUSH Physical Examination - Physical Exam Narrative exam: General appearance: Alert in NAD Eyes: anicteric sclerae, moist conjunctivae; no lid-lag; PERRLA HENT: Atraumatic; oropharynx clear with moist mucous membranes and no mucosal ulcerations/no oral thrush; normal hard and soft palate. Lungs: CTA, with normal respiratory effort and no intercostal retractions CV: RRR no murmur Abdomen: Soft, non-tender Extremities: no edema, no cyanosis Skin: No rash. Midchest scar. Psych: Appropriate affect, alert and oriented to person, place and time. Neuro: alert and oriented x 3. Moving all extermities - Constitutional Vitals: Vital Signs Temp Pulse Resp BP Pulse Ox 98.3 F 74 18 112/62 100 03/05/19 05:20 03/05/19 05:20 03/05/19 05:20 03/05/19 05:20 03/05/19 05:20 Temperature -Last 24 Hours Temperature 98.3 F Temperature 98.0 F Temperature 98.7 F Temperature 98.5 F Temperature 97.7 F Results - Labs CBC & Chem 7: 03/05/19 04:12 03/05/19 04:12 Labs: Abnormal lab results 03/04/19 03/04/19 03/04/19 Range/Units 07:54 10:31 12:54 RBC (3.65-5.03) M/mm3 Hgb (10.1-14.3) gm/dl Hct (30.3-42.9) % RDW (13.2-15.2) % Plt Count (140-440) K/mm3 Lymph % (Auto) (13.4-35.0) % [place] % (Auto) (0.0-7.3) % Lymph # (1.2-5.4) K/mm3 Seg Neutrophils % (40.0-70.0) % Potassium (3.6-5.0) mmol/L Chloride (98-107) mmol/L Carbon Dioxide (22-30) mmol/L BUN (7-17) mg/dL Creatinine (0.7-1.2) mg/dL Glucose (65-100) mg/dL POC Glucose 335 H (70-105) Hemoglobin A1c 12.4 H (4-6) % Lactic Acid 3.90 H* (0.7-2.0) mmol/L Calcium (8.4-10.2) mg/dL AST (5-40) units/L Albumin (3.9-5) g/dL 03/04/19 03/04/19 03/04/19 Range/Units 15:39 17:48 22:37 RBC (3.65-5.03) M/mm3 Hgb (10.1-14.3) gm/dl Hct (30.3-42.9) % RDW (13.2-15.2) % Plt Count (140-440) K/mm3 Lymph % (Auto) (13.4-35.0) % [place] % (Auto) (0.0-7.3) % Lymph # (1.2-5.4) K/mm3 Seg Neutrophils % (40.0-70.0) % Potassium (3.6-5.0) mmol/L Chloride (98-107) mmol/L Carbon Dioxide (22-30) mmol/L BUN (7-17) mg/dL Creatinine (0.7-1.2) mg/dL Glucose (65-100) mg/dL POC Glucose 388 H 423 H (70-105) Hemoglobin A1c (4-6) % Lactic Acid 2.20 H* (0.7-2.0) mmol/L Calcium (8.4-10.2) mg/dL AST (5-40) units/L Albumin (3.9-5) g/dL 03/05/19 03/05/19 03/05/19 Range/Units 04:12 04:12 07:33 RBC 2.88 L (3.65-5.03) M/mm3 Hgb 9.3 L (10.1-14.3) gm/dl Hct 27.0 L (30.3-42.9) % RDW 17.6 H (13.2-15.2) % Plt Count 84 L (140-440) K/mm3 Lymph % (Auto) 13.2 L (13.4-35.0) % [place] % (Auto) 9.4 H (0.0-7.3) % Lymph # 0.9 L (1.2-5.4) K/mm3 Seg Neutrophils % 75.8 H (40.0-70.0) % Potassium 3.3 L D (3.6-5.0) mmol/L Chloride 109.7 H (98-107) mmol/L Carbon Dioxide 20 L (22-30) mmol/L BUN 52 H (7-17) mg/dL Creatinine 2.0 H (0.7-1.2) mg/dL Glucose 246 H (65-100) mg/dL POC Glucose 206 H (70-105) Hemoglobin A1c (4-6) % Lactic Acid (0.7-2.0) mmol/L Calcium 8.2 L (8.4-10.2) mg/dL AST 52 H (5-40) units/L Albumin 1.8 L (3.9-5) g/dL Assessment and Plan Cultures/ID related labs: Blood culture GNR 2 of 4 bottles. Assessment: 48 y/o female history of for congestive heart failure, cirrhosis, diabetes, hepatic encephalopathy in the past admitted on due to 24 hour of AMS/confusion: 1) Sepsis: present on admission with tachycardia, elevated lactate; source GNR bacteremia. CXR negative. 2) GNR bacteremia: of unclear source, UA negative. ? SBP ? liver/GB. Blood culture GNR 2 of 4 bottles. 3) Acute encephalopathy: from hepatic encephalopathy 4) MARY Recommendations: continue ceftriaxone f/u blood culture consider paracentesis abdominal US stop vancomycin GI med consult Will follow. Cammy Yu MD Infectious Diseases [facility] ([facility] M [phone] O [phone]
--- NOTE | 2019-03-05 11:31 | Consultation ---
History of Present Illness - Reason for Consult Consult date: 03/05/19 acute renal failure - History of Present Illness patient with h/o cirrhosis was admitted yesterday for altered mental status, CT head was negative for acute process and was noted to have elevated ammonia and was started on Xifaxan, she was noted to have abnormal l kidney function and renal consult was requested Past History Past Medical History: other (Cirrhosis) Medications and Allergies Allergies Allergy/AdvReac Type Severity Reaction Status Date / Time No Known Allergies Allergy Verified 07/25/16 12:59 Home Medications Medication Instructions Recorded Confirmed Last Taken Type Cyclobenzaprine [Flexeril 10 MG 10 mg PO DAILY 11/13/16 11/13/16 Unknown History TAB] Furosemide [Lasix TAB] 20 mg PO QDAY 11/13/16 11/13/16 Unknown History Spironolactone [Aldactone] 50 mg PO QDAY 11/13/16 11/13/16 Unknown History Insulin NPH Hum/Reg Insulin Hm 20 unit SQ BID 30 Days ml 11/15/16 Unknown Rx [HumuLIN 70-30 Vial] Ciprofloxacin HCl [Ciprofloxacin 500 mg PO Q12H #7 tab 12/14/16 Unknown Rx TAB] Propranolol [Inderal] 20 mg PO BID #60 tablet 12/14/16 Unknown Rx Active Meds: Active Medications Acetaminophen (Tylenol) 650 mg PO Q4H PRN PRN Reason: Pain MILD(1-3)/Fever >100.5/SPANN Cyclobenzaprine HCl (Flexeril) 10 mg PO DAILY [facility] Last Admin: 03/05/19 09:54 Dose: 10 mg Documented by: Famotidine (Pepcid) 20 mg IV BID [facility] Last Admin: 03/05/19 09:53 Dose: 20 mg Documented by: Vancomycin HCl 1,250 mg/ (Sodium Chloride) 275 mls @ 183.333 mls/hr IV Q24H [facility] Sodium Chloride (Nacl 0.9% 1000 Ml) 1,000 mls @ 75 mls/hr IV DIRECT [facility] Last Admin: 03/05/19 10:19 Dose: 75 mls/hr Documented by: Ceftriaxone Sodium (Rocephin/Ns 2 Gm/100 Ml) 2 gm in 100 mls @ 200 mls/hr IV Q24H [facility]; Protocol Last Admin: 03/04/19 22:47 Dose: 200 mls/hr Documented by: Potassium Chloride (Kcl 10meq/100ml) 10 meq in 100 mls @ 100 mls/hr IV Q1H [facility] Stop: 03/05/19 14:59 Magnesium Sulfate 1 gm/ Sodium (Chloride) 52 mls @ 52 mls/hr IV ONCE ONE Stop: 03/05/19 11:59 Last Admin: 03/05/19 11:17 Dose: 52 mls/hr Documented by: Insulin Human Isoph/Insulin Regular (Humulin 70/30) 20 unit SUB-Q BID [facility] Last Admin: 03/05/19 10:19 Dose: 20 unit Documented by: Insulin Human Lispro (Humalog) 0 unit SUB-Q ACHS [facility]; Protocol Last Admin: 03/05/19 10:19 Dose: 4 unit Documented by: Ondansetron HCl (Zofran) 4 mg IV Q8H PRN PRN Reason: Nausea And Vomiting Oxycodone/Acetaminophen (Percocet 5/325) 1 tab PO Q6H PRN PRN Reason: Pain, Moderate (4-6) Propranolol HCl (Inderal) 20 mg PO BID [facility] Last Admin: 03/05/19 10:21 Dose: 20 mg Documented by: Rifaximin (Xifaxan) 550 mg PO BID [facility] Last Admin: 03/05/19 09:53 Dose: 550 mg Documented by: Sodium Chloride (Sodium Chloride Flush Syringe 10 Ml) 10 ml IV BID [facility] Last Admin: 03/05/19 09:54 Dose: 10 ml Documented by: Sodium Chloride (Sodium Chloride Flush Syringe 10 Ml) 10 ml IV PRN PRN PRN Reason: LINE FLUSH Review of Systems All systems: negative (weakness, confusion) Exam - Vital Signs Vital signs: Vital Signs Temp Pulse Resp BP Pulse Ox 98.4 F 105 H 22 136/46 100 03/04/19 07:30 03/04/19 07:30 03/04/19 07:30 03/04/19 07:30 03/04/19 07:30 - General Appearance General appearance: well-developed, well-nourished, appears stated age EENT: ATNC, PERRL, mucous membranes moist Neck: Present: neck supple Respiratory: Clear to Ascultation Heart: regular, normal heart rate Gastrointestinal: Present: normoactive bowel sounds. Absent: tenderness, distended Integumentary: no rash, warm and dry Neurologic: no focal deficit Musculoskeletal: Present: other (no edema in BLE) Psychiatric: mood/affect appropriate, cooperative Results - Lab Results 03/05/19 04:12 03/05/19 04:12 Most recent lab results Calcium 8.2 mg/dL (8.4-10.2) L 03/05/19 04:12 Magnesium 1.80 mg/dL (1.7-2.3) 03/04/19 07:54 Assessment and Plan acute renal failure, likely prerenal azotemia Hepatic encephalopathy anemia in chronic disease - will d/c aldactone and lasix for now, no signs of volume overload and CXR was normal - ok to cont current IVF - will check urine lytes, protein and eos - renally dose meds - strict I&O - daily weight Eleazar mesa MD [phone]
[2019-03-05] MEDS ORDERED: VANCOMYCIN 1,250 MG in NACL 0.9% 250ML 250 ML IV SCH (12:00)
--- NOTE | 2019-03-05 15:27 | Ultrasound Report ---
ULTRASOUND ABDOMEN, LIMITED INDICATION: Planned paracentesis COMPARISON: None available. FINDINGS: Limited evaluation was performed to select a site for planned ultrasound-guided paracentesi s. Only minimal ascites was noted in the left lower quadrant, insufficient for the procedure which wa s therefore canceled. IMPRESSION: Minimal ascites not allowing paracentesis Signer Name: Brian Trinidad MD Signed: 03/05/2019 3:23 PM Workstation Name: [id number]
[2019-03-05] MEDS: KCL 10MEQ/100ML 10 MEQ/100 ML BAG IV SCH ×2 (16:36→22:49)
[2019-03-05] MEDS: ROCEPHIN/NS 2 GM/100 ML 2 GM/100 ML BAG IV SCH (21:55)
[2019-03-06] MEDS: KCL 10MEQ/100ML 10 MEQ/100 ML BAG IV SCH ×2 (01:06→02:02)
[2019-03-06] MEDS: NACL 0.9% 1000 ML 1,000 ML IV SCH (04:03)
[2019-03-06] MEDS: HumaLOG SUB-Q SCH ×2 (07:30→12:21)
[2019-03-06 08:02] LABS: Albumin 1.9 g/dL (3.9-5); Calcium 7.9 mg/dL (8.4-10.2); Hemoglobin 9.5 gm/dl (10.1-14.3); Mean Corpuscular HGB Conc 35 % (30-34); Mean Corpuscular Volume 93 fl (79-97); Red Blood Count 2.89 M/mm3 (3.65-5.03); Red Cell Distribution Width 17.5 % (13.2-15.2)
[2019-03-06 10:09] LABS: Basophils % (Manual) 0 % (0.0-1.8); Total Cells Counted 100
[2019-03-06 10:11] LABS: Anisocytosis Few; Platelet Estimate Consistent w Auto
[2019-03-06 10:13] LABS: Platelet Count 87 K/mm3 (140-440)
--- NOTE | 2019-03-06 10:23 | Progress Note ---
Assessment and Plan Cultures/ID related labs: Blood culture Morganella morganni, 2 out of 4 bottles, nix suceptible Urine culture 03/04/19 Yeast, fungal, no kyree albicans Assessment: 48 y/o female history of for congestive heart failure, cirrhosis, diabetes, hepatic encephalopathy in the past admitted on due to 24 hour of AMS/confusion: 1) Sepsis: Improved. still low grade fever. Etiology Morganella morganni bacteremia, 2 out of 4 bottles.CXR negative. U/A negative. 2) Morganella morganni bacteremia: etiology of unclear source, UA negative. Urine culture grew yeast, fungal not kyree albicans , likely colonizer . possible sources ? SBP , (however likely without ascities or abdominal pain) v/s portal hypertension enteritis cause bowel bacteria translocation ? liver/GB. Blood culture grew Morganella morganni, 2 out of 4 bottles, nix suceptible .Abdominal US showed minimal ascites in the left lower quadrant, insufficient for paracentesis. 3) Acute encephalopathy: from hepatic encephalopathy 4) MARY Recommendations: monitor fever continue ceftriaxone 2 gms IV every 24 hours GI med on board at discharge will do Ceftin 500mg PO bid for total 10 days ending 03-13-19 Tanya Panchal NP [facility] M: [phone] O:[phone] Subjective Date of service: 03/06/19 Interval history: Patient seen and examined. Reports no generalized pain or weakness. Low grade fever. Objective - Exam Narrative Exam: General appearance: Alert in NAD Eyes: anicteric sclerae, moist conjunctivae; no lid-lag; PERRLA HENT: Atraumatic; oropharynx clear with moist mucous membranes and no mucosal ulcerations/no oral thrush; normal hard and soft palate. Lungs: CTA, with normal respiratory effort and no intercostal retractions CV: RRR no murmur Abdomen: Soft, non-tender Extremities: no edema, no cyanosis Skin: No rash. Midchest scar. Psych: Appropriate affect, alert and oriented to person, place and time. Neuro: alert and oriented x 3. Moving all extremities - Constitutional Vitals: Vital Signs Temp Pulse Resp BP Pulse Ox 98.0 F 71 18 130/65 98 03/06/19 05:02 03/06/19 05:02 03/06/19 05:02 03/06/19 05:02 03/06/19 05:02 Temperature -Last 24 Hours Temperature 98.0 F Temperature 100.5 F Temperature 98.7 F Temperature 96.3 F - Labs CBC & Chem 7: 03/06/19 07:15 03/06/19 07:15 Labs: Abnormal lab results 03/05/19 03/05/19 03/05/19 Range/Units 12:02 17:00 22:21 RBC (3.65-5.03) M/mm3 Hgb (10.1-14.3) gm/dl Hct (30.3-42.9) % MCH (28-32) pg MCHC (30-34) % RDW (13.2-15.2) % Plt Count (140-440) K/mm3 Seg Neuts % (Manual) (40.0-70.0) % Lymphocytes % (Manual) (13.4-35.0) % Lymphocytes # (Manual) (1.2-5.4) K/mm3 Sodium (137-145) mmol/L Potassium (3.6-5.0) mmol/L Carbon Dioxide (22-30) mmol/L BUN (7-17) mg/dL Creatinine (0.7-1.2) mg/dL Glucose (65-100) mg/dL POC Glucose 280 H 219 H 238 H (70-105) Calcium (8.4-10.2) mg/dL Phosphorus (2.5-4.5) mg/dL TIBC (250-450) mcg/dL AST (5-40) units/L Alkaline Phosphatase (35-129) units/L Albumin (3.9-5) g/dL 03/06/19 03/06/19 03/06/19 Range/Units 07:15 07:15 07:15 RBC 2.89 L (3.65-5.03) M/mm3 Hgb 9.5 L (10.1-14.3) gm/dl Hct 27.0 L (30.3-42.9) % MCH 33 H (28-32) pg MCHC 35 H (30-34) % RDW 17.5 H (13.2-15.2) % Plt Count 87 L (140-440) K/mm3 Seg Neuts % (Manual) 86.0 H (40.0-70.0) % Lymphocytes % (Manual) 11.0 L (13.4-35.0) % Lymphocytes # (Manual) 0.7 L (1.2-5.4) K/mm3 Sodium 133 L (137-145) mmol/L Potassium 3.5 L (3.6-5.0) mmol/L Carbon Dioxide 17 L (22-30) mmol/L BUN 47 H (7-17) mg/dL Creatinine 1.6 H (0.7-1.2) mg/dL Glucose 124 H (65-100) mg/dL POC Glucose (70-105) Calcium 7.9 L (8.4-10.2) mg/dL Phosphorus 2.20 L (2.5-4.5) mg/dL TIBC 128 L (250-450) mcg/dL AST 70 H (5-40) units/L Alkaline Phosphatase 152 H (35-129) units/L Albumin 1.9 L (3.9-5) g/dL 03/06/ Range/Units 08:10 RBC (3.65-5.03) M/mm3 Hgb (10.1-14.3) gm/dl Hct (30.3-42.9) % MCH (28-32) pg MCHC (30-34) % RDW (13.2-15.2) % Plt Count (140-440) K/mm3 Seg Neuts % (Manual) (40.0-70.0) % Lymphocytes % (Manual) (13.4-35.0) % Lymphocytes # (Manual) (1.2-5.4) K/mm3 Sodium (137-145) mmol/L Potassium (3.6-5.0) mmol/L Carbon Dioxide (22-30) mmol/L BUN (7-17) mg/dL Creatinine (0.7-1.2) mg/dL Glucose (65-100) mg/dL POC Glucose 112 H (70-105) Calcium (8.4-10.2) mg/dL Phosphorus (2.5-4.5) mg/dL TIBC (250-450) mcg/dL AST (5-40) units/L Alkaline Phosphatase (35-129) units/L Albumin (3.9-5) g/dL
[2019-03-06] MEDS: FLEXERIL PO SCH (10:33)
[2019-03-06] MEDS: PEPCID IV SCH (10:33)
[2019-03-06] MEDS: XIFAXAN PO SCH (10:33)
[2019-03-06] MEDS: INDERAL PO SCH (10:34)
[2019-03-06] MEDS: SODIUM CHLORIDE FLUSH SYRINGE 10 ML IV SCH (10:35)
--- NOTE | 2019-03-06 11:41 | Progress Note ---
Assessment and Plan Assessment: Acute renal failure, likely prerenal azotemia Hepatic encephalopathy Anemia in chronic disease Plan: - Renal labs reviewed. Serum creatinine trend down to 1.6 today from 2.0 yesterday - Aldactone and lasix discontinued yesterday, no signs of volume overload and CXR was normal - On NS@ 75 ml/hr - Urine lytes, protein and eos to be collected - Renally dose medications - Strict I&O monitoring - Obtain daily weights - Continue to monitor renal function Subjective Date of service: 03/06/19 Principal diagnosis: ARF Interval history: Patient seen sitting up in bed eating lunch. No family at bedside. Objective - Vital Signs Vital signs: Vital Signs - 12hr 03/05/19 03/06/19 23:57 05:02 Temperature 100.5 F H 98.0 F Pulse Rate 85 71 Respiratory 18 18 Rate Blood Pressure 150/76 130/65 O2 Sat by Pulse 99 98 Oximetry - General Appearance General appearance: well-developed, appears stated age, fatigue EENT: ATNC, PERRL, hearing intact, vision intact Neck: no JVD, supple Respiratory: Present: Decreased Breath Sounds Cardiology: S1S2 Gastrointestinal: normoactive bowel sounds Integumentary: no rash Neurologic: alert and oriented x3 - Lab 03/06/19 07:15 03/06/19 07:15 Most recent lab results Calcium 7.9 mg/dL (8.4-10.2) L 03/06/19 07:15 Phosphorus 2.20 mg/dL (2.5-4.5) L 03/06/19 07:15 Magnesium 1.80 mg/dL (1.7-2.3) 03/04/19 07:54 Medications & Allergies - Medications Allergies/Adverse Reactions: Allergies No Known Allergies Allergy (Verified 07/25/16 12:59) Home Medications: Home Medications Medication Instructions Recorded Confirmed Last Taken Type Cyclobenzaprine [Flexeril 10 MG 10 mg PO DAILY 11/13/16 11/13/16 Unknown History TAB] Furosemide [Lasix TAB] 20 mg PO QDAY 11/13/16 11/13/16 Unknown History Spironolactone [Aldactone] 50 mg PO QDAY 11/13/16 11/13/16 Unknown History Insulin NPH Hum/Reg Insulin Hm 20 unit SQ BID 30 Days ml 11/15/16 Unknown Rx [HumuLIN 70-30 Vial] Ciprofloxacin HCl [Ciprofloxacin 500 mg PO Q12H #7 tab 12/14/16 Unknown Rx TAB] Propranolol [Inderal] 20 mg PO BID #60 tablet 12/14/16 Unknown Rx Active Medications: Generic Name Dose Route Start Last Admin Trade Name Freq PRN Reason Stop Dose Admin Acetaminophen 650 mg 03/04/19 18:11 03/06/19 00:18 Tylenol PO 650 mg Q4H PRN Administration Pain MILD(1-3)/Fever >100.5/SPANN Cyclobenzaprine HCl 10 mg 03/04/19 19:00 03/06/19 10:33 Flexeril PO 10 mg DAILY DEONNA Administration Famotidine 20 mg 03/06/19 22:00 Pepcid PO BID DEONNA Sodium Chloride 1,000 mls @ 75 mls/hr 03/04/19 19:00 03/06/19 04:03 Nacl 0.9% 1000 Ml IV 75 mls/hr DIRECT DEONNA Administration Ceftriaxone Sodium 2 gm in 100 mls @ 200 mls/hr 03/04/19 22:00 03/05/19 21:55 Rocephin/Ns 2 Gm/100 Ml IV 200 mls/hr Q24H DEONNA Administration Protocol Insulin Human Isoph/Insulin Regular 20 unit 03/04/19 22:00 03/06/19 10:35 Humulin 70/30 SUB-Q 20 unit BID DEONNA Administration Insulin Human Lispro 0 unit 03/04/19 22:00 03/06/19 07:30 Humalog SUB-Q Not Given ACHS DEONNA Protocol Ondansetron HCl 4 mg 03/04/19 18:11 Zofran IV Q8H PRN Nausea And Vomiting Oxycodone/Acetaminophen 1 tab 03/04/19 18:11 Percocet 5/325 PO Q6H PRN Pain, Moderate (4-6) Potassium Chloride 40 meq 03/06/19 12:00 Potassium Chloride FEEDTUBE 03/06/19 12:01 ONCE ONE Propranolol HCl 20 mg 03/04/19 22:00 03/06/19 10:34 Inderal PO 20 mg BID DEONNA Administration Rifaximin 550 mg 03/05/19 10:00 03/06/19 10:33 Xifaxan PO 550 mg BID DEONNA Administration Sodium Chloride 10 ml 03/04/19 22:00 07/24/19 10:35 Sodium Chloride Flush Syringe 10 Ml IV 10 ml BID DEONNA Administration Sodium Chloride 10 ml 03/04/19 18:11 Sodium Chloride Flush Syringe 10 Ml IV PRN PRN LINE FLUSH
[2019-03-06] MEDS ORDERED: POTASSIUM CHLORIDE FEEDTUBE ONE (12:00)
--- NOTE | 2019-03-06 15:22 | Event Note ---
Date: 03/06/19 Physician Attestation: I have personally seen and examined patient. I personally discussed and directed assessment and management with [employer] MACHINE OPERATOR Abdulkadir. Clinically better. Unclear source of GNR bacteremia ? bowel edema and gut cesar translocation. OK to change to PO abx and d/c home. Guarded prognosis. Cammy Yu MD Infectious Diseases [facility] [employer] [facility] ([facility]) M [phone] O [phone]
--- NOTE | 2019-03-06 16:32 | Discharge Summary ---
Providers - Providers Date of Admission: 03/04/19 10:23 Attending physician: KENN MIN MD 03/04/19 19:46 Consult to Wound/ET Nurse [CONS] Routine Reason For Exam: wound eval/ perineal excoriation 03/04/19 21:55 Consult to Physician [CONS] Routine Comment: Consulting Provider: RADHA BOOKER Physician Instructions: Reason For Exam: hepatic encepalopathy 03/05/19 09:40 Consult to Physician [CONS] Routine Comment: Consulting Provider: PRIOM CORRAL Physician Instructions: Reason For Exam: [place] 03/05/19 09:50 Consult to Physician [CONS] Routine Comment: Consulting Provider: GATO OLSEN Physician Instructions: Reason For Exam: SEPSIS, ?SBP 03/05/19 11:54 Physical Therapy Evaluation and Treat [CONS] Routine Comment: Reason For Exam: eval & Treat [facility] Condition: Stable Hospital course: 48-year-old female history of for congestive heart failure, cirrhosis, Hepatic failure, insulin-dependent diabetes and anemia, hepatic encephalopathy in the past brought in by EMS for total confusion and altered mental status of 1 day duration After she was found [place] [facility] police and was noted to be hypothermic although temp not documented. Per Triage note, patient had heat packs enroute to the hospital In the ED it was noted that the Patient is lethargic and not oriented. Follows commands. Patient says that she ran out of insulin and not taking insulin. Taking lactulose on a regular basis. No fever or chills. Past Medical History Hypertension: Yes Congestive Heart Failure: No Diabetes: Yes Liver Disease: Yes (cirrhosis, autoimmune hepatitis Additional medical history: Anemia. 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 (1) Hepatic encephalopathy Current Visit: Yes Status: Acute Plan to address problem: Patient initiated on lactulose Ammonia level high but not very high CT abdomen ordered for quantifying ascites us guided paracentesis Counselling provided (2) Sepsis Current Visit: Yes Status: Acute Plan to address problem: High white count and elevated lactic acid in favor of SIRS IV Rocephin initiated Gram negative Bactermia (3) Acute renal failure Current Visit: Yes Status: Acute Qualifiers: Acute renal failure type: unspecified Qualified Code(s): N17.9 - Acute kidney failure, unspecified Plan to address problem: IV fluids for now Monitor BUN/creatinine (4) Insulin dependent diabetes mellitus Current Visit: Yes Status: Acute Plan to address problem: Accu-Cheks and high-dose sliding scale protocol A1c is high 12.4 Novolin 70/30 to be increased at the time of discharge depending on the blood glucose levels (5) Elevated lactic acid level Current Visit: Yes Status: Acute Plan to address problem: Trend lactic acid levels Patient on IV Rocephin (6) Transaminitis Current Visit: Yes Status: Acute (7) Severe malnutrition Current Visit: Yes Status: Acute Plan to address problem: Dietitian consult requested (8) DVT prophylaxis Current Visit: Yes Status: Acute Plan to address problem: on heparin and GI prophylaxis Disposition: DC-01 TO HOME OR SELFCARE Time spent for discharge: 35 mins Exam - Constitutional Vitals: Temp Pulse Resp BP Pulse Ox 97.5 F L 75 18 140/78 100 03/06/19 11:33 03/06/19 11:33 03/06/19 11:33 03/06/19 11:33 03/06/19 11:33 Plan Activity: advance as tolerated, fall precautions Diet: low fat, diabetic Special Instructions: record daily weights, record daily BP diary, record blood sugar diary Follow up with: SAVAGE LAUMAYLINMABEN MD SID [Primary Care Provider] - 3-5 Days PRIMO CORRAL MD [Staff Physician] - 7 Days CHERYL ROWLAND MD [Staff Physician] - 7 Days Prescriptions: cefUROXime [Ceftin] 500 mg PO Q12H 7 Days tablet Rifaximin [Xifaxan] 550 mg PO BID #60 tablet
[2019-03-06 17:08] VITALS: BP 145/77
[2019-03-06] MEDS ORDERED: PEPCID PO SCH (22:00)
--- NOTE | 2019-03-06 22:12 | Gastroenterology Progress Note ---
Assessment and Plan * Patient continues to improve * Please discharge on Xifaxan 550mg PO BID instead of lactulose (lactulose can increase glucose levels so xifaxan is preferred for this patient with history of uncontrolled DM) * Low sodium diet, diuretics not required given minimal ascites * From GI perspective patient has improved enough for discharge, she must follow up closely with her multi skilled operator - Patient Problems (1) Hepatic encephalopathy Status: Acute (2) Hyperammonemia Status: Acute (3) Autoimmune liver disease Status: Acute (4) Cirrhosis Status: Acute (5) Renal insufficiency Status: Acute Subjective Date of service: 03/06/19 Principal diagnosis: ARF Interval history: PAtient seen at 10AM MEntal status continuing to improve Objective - Constitutional Vitals: Temp Pulse Resp BP Pulse Ox 98.3 F 76 16 145/77 100 03/06/19 15:49 03/06/19 15:49 03/06/19 15:49 03/06/19 15:49 03/06/19 15:49 General appearance: no acute distress - Respiratory Respiratory effort: normal - Gastrointestinal General gastrointestinal: Present: soft - Neurologic Neurological: other (very subtle asterixis still present) - Labs CBC & Chem 7: 03/06/19 07:15 03/06/19 07:15 Labs: Laboratory Results - last 24 hr 03/05/19 03/06/19 03/06/19 22:21 07:15 07:15 WBC 6.2 RBC 2.89 L Hgb 9.5 L Hct 27.0 L MCV 93 MCH 33 H MCHC 35 H RDW 17.5 H Plt Count 87 L Add Manual Diff Complete Total Counted 100 Seg Neuts % (Manual) 86.0 H Band Neutrophils % 0 Lymphocytes % (Manual) 11.0 L Reactive Lymphs % (Man) 0 Monocytes % (Manual) 1.0 Eosinophils % (Manual) 1.0 Basophils % (Manual) 0 Metamyelocytes % 1.0 Myelocytes % 0 Promyelocytes % 0 Blast Cells % 0 Nucleated RBC % Not Reportable Seg Neutrophils # Man 5.3 Band Neutrophils # 0.0 Lymphocytes # (Manual) 0.7 L Abs React Lymphs (Man) 0.0 Monocytes # (Manual) 0.1 Eosinophils # (Manual) 0.1 Basophils # (Manual) 0.0 Metamyelocytes # 0.1 Myelocytes # 0.0 Promyelocytes # 0.0 Blast Cells # 0.0 WBC Morphology Not Reportable Hypersegmented Neuts Not Reportable Hyposegmented Neuts Not Reportable Hypogranular Neuts Not Reportable Smudge Cells Not Reportable Toxic Granulation Not Reportable Toxic Vacuolation Not Reportable Dohle Bodies Not Reportable Pelger-Huet Anomaly Not Reportable Chary Rods Not Reportable Platelet Estimate Consistent w auto Clumped Platelets Not Reportable Plt Clumps, EDTA Not Reportable Large Platelets Not Reportable Giant Platelets Not Reportable Platelet Satelliting Not Reportable Plt Morphology Comment Not Reportable RBC Morphology Not Reportable Dimorphic RBCs Not Reportable Polychromasia Not Reportable Hypochromasia Not Reportable Poikilocytosis Not Reportable Anisocytosis Few Microcytosis Not Reportable Macrocytosis Not Reportable Spherocytes Not Reportable Pappenheimer Bodies Not Reportable Sickle Cells Not Reportable Target Cells Not Reportable Tear Drop Cells Not Reportable Ovalocytes Not Reportable Helmet Cells Not Reportable Paul-Vineyard Bodies Not Reportable [place] Rings Not Reportable Marilyn Cells Not Reportable Bite Cells Not Reportable Crenated Cell Not Reportable Elliptocytes Not Reportable Acanthocytes (Spur) Not Reportable Rouleaux Not Reportable Hemoglobin C Crystals Not Reportable Schistocytes Not Reportable Malaria parasites Not Reportable [place] Bodies Not Reportable Hem Pathologist Commnt No Sodium 133 L Potassium 3.5 L Chloride 106.2 Carbon Dioxide 17 L Anion Gap 13 BUN 47 H Creatinine 1.6 H Estimated GFR 42 BUN/Creatinine Ratio 29 Glucose 124 H POC Glucose 238 H Lactic Acid Calcium 7.9 L Phosphorus Iron TIBC Ferritin Total Bilirubin 1.20 AST 70 H ALT 53 Alkaline Phosphatase 152 H Total Protein 6.7 Albumin 1.9 L Albumin/Globulin Ratio 0.4 03/06/19 03/06/19 03/06/19 07:15 07:15 07:15 WBC RBC Hgb Hct MCV MCH MCHC RDW Plt Count Add Manual Diff Total Counted Seg Neuts % (Manual) Band Neutrophils % Lymphocytes % (Manual) Reactive Lymphs % (Man) Monocytes % (Manual) Eosinophils % (Manual) Basophils % (Manual) Metamyelocytes % Myelocytes % Promyelocytes % Blast Cells % Nucleated RBC % Seg Neutrophils # Man Band Neutrophils # Lymphocytes # (Manual) Abs React Lymphs (Man) Monocytes # (Manual) Eosinophils # (Manual) Basophils # (Manual) Metamyelocytes # Myelocytes # Promyelocytes # Blast Cells # WBC Morphology Hypersegmented Neuts Hyposegmented Neuts Hypogranular Neuts Smudge Cells Toxic Granulation Toxic Vacuolation Dohle Bodies Pelger-Huet Anomaly Chary Rods Platelet Estimate Clumped Platelets Plt Clumps, EDTA Large Platelets Giant Platelets Platelet Satelliting Plt Morphology Comment RBC Morphology Dimorphic RBCs Polychromasia Hypochromasia Poikilocytosis Anisocytosis Microcytosis Macrocytosis Spherocytes Pappenheimer Bodies Sickle Cells Target Cells Tear Drop Cells Ovalocytes Helmet Cells Paul-Vineyard Bodies [place] Rings [place] Cells Bite Cells Crenated Cell Elliptocytes Acanthocytes (Spur) Rouleaux Hemoglobin C Crystals Schistocytes Malaria parasites Zurdo Bodies Hem Pathologist Commnt Sodium Potassium Chloride Carbon Dioxide Anion Gap BUN Creatinine Estimated GFR BUN/Creatinine Ratio Glucose POC Glucose Lactic Acid 1.20 Calcium Phosphorus 2.20 L Iron 48 TIBC 128 L Ferritin 93.0 Total Bilirubin AST ALT Alkaline Phosphatase Total Protein Albumin Albumin/Globulin Ratio 03/06/19 03/06/19 08:10 10:59 WBC RBC Hgb Hct MCV MCH MCHC RDW Plt Count Add Manual Diff Total Counted Seg Neuts % (Manual) Band Neutrophils % Lymphocytes % (Manual) Reactive Lymphs % (Man) Monocytes % (Manual) Eosinophils % (Manual) Basophils % (Manual) Metamyelocytes % Myelocytes % Promyelocytes % Blast Cells % Nucleated RBC % Seg Neutrophils # Man Band Neutrophils # Lymphocytes # (Manual) Abs React Lymphs (Man) Monocytes # (Manual) Eosinophils # (Manual) Basophils # (Manual) Metamyelocytes # Myelocytes # Promyelocytes # Blast Cells # WBC Morphology Hypersegmented Neuts Hyposegmented Neuts Hypogranular Neuts Smudge Cells Toxic Granulation Toxic Vacuolation Dohle Bodies Pelger-Huet Anomaly Cahry Rods Platelet Estimate Clumped Platelets Plt Clumps, EDTA Large Platelets Giant Platelets Platelet Satelliting Plt Morphology Comment RBC Morphology Dimorphic RBCs Polychromasia Hypochromasia Poikilocytosis Anisocytosis Microcytosis Macrocytosis Spherocytes Pappenheimer Bodies Sickle Cells Target Cells Tear Drop Cells Ovalocytes Helmet Cells Paul-Vineyard Bodies [place] Rings Marilyn Cells Bite Cells Crenated Cell Elliptocytes Acanthocytes (Spur) Rouleaux Hemoglobin C Crystals Schistocytes Malaria parasites [place] Bodies Hem Pathologist Commnt Sodium Potassium Chloride Carbon Dioxide Anion Gap BUN Creatinine Estimated GFR BUN/Creatinine Ratio Glucose POC Glucose 112 H 209 H Lactic Acid Calcium Phosphorus Iron TIBC Ferritin Total Bilirubin AST ALT Alkaline Phosphatase Total Protein Albumin Albumin/Globulin Ratio
== END 2019-03-06 19:26 | disposition home or self-care (01) | DRG 871 ==
LOC: ED 07:00 → 3A 10:23
PROVIDERS: ADMIT Internal Medicine; ATTEND Internal Medicine
DX: A41.89 Other specified sepsis (principal); E43 Unspecified severe protein-calorie malnutrition; N17.9 Acute kidney failure, unspecified; E72.20 Disorder of urea cycle metabolism, unspecified; E87.5 Hyperkalemia; K72.90 Hepatic failure, unspecified without coma; K74.60 Unspecified cirrhosis of liver; I50.9 Heart failure, unspecified; R74.0 Nonspecific elevation of levels of transaminase and lactic acid dehydrogenase [LDH]; D63.8 Anemia in other chronic diseases classified elsewhere; I11.0 Hypertensive heart disease with heart failure; D69.6 Thrombocytopenia, unspecified; E11.65 Type 2 diabetes mellitus with hyperglycemia; Z71.89 Other specified counseling; Z79.4 Long term (current) use of insulin; Z68.27 Body mass index [BMI] 27.0-27.9, adult; Z71.3 Dietary counseling and surveillance; Z82.49 Family history of ischemic heart disease and other diseases of the circulatory system; Z79.899 Other long term (current) drug therapy
CPT/HCPCS: 36415; 70450; 71045; 76705; 80048; 80053; 80061; 80076; 80307; 81001; 82010; 82140; 82550; 82553; 82728; 82805; 82962; 83036; 83550; 83735; 83880; 84100; 84484; 85007; 85025; 85610; 85730; 87040; 87076; 87086; 87186; 93005; 93010; G0378; J0696; J1815; J2185; J3370; J3475; J3480; J7030; J7040; J7050